=== PATIENT | female | born 1935 | race Caucasian/White ===

== ENCOUNTER 2016-08-03 | Outpatient (CLI) | END 2016-08-03 14:40 | disposition critical access hospital (66) | CPT/HCPCS: A0425; A0429 ==

== ENCOUNTER 2016-08-03 14:52 | Emergency (ER) | payer MEDICARE ==
[2016-08-03] MEDS ORDERED: SODIUM CHLORIDE 0.9% 1,000 ML IV ONE (15:30)
[2016-08-03] MEDS ORDERED: DEXAMETHASONE 10 MG/ML VIAL IVP STA (15:30)
[2016-08-03] MEDS ORDERED: ACETAMINOPHEN 325 MG TABLET PO STA (15:36)
[2016-08-03] MEDS ORDERED: DEXAMETHASONE 10 MG/ML VIAL ONE (15:37)
[2016-08-03] MEDS ORDERED: ACETAMINOPHEN 325 MG TABLET PO ONE (15:42)
[2016-08-03] MEDS ORDERED: cefTRIAXone 1 GM in SODIUM CHLORIDE 0.9% MINIBAG 100 ML IV STA (16:08)
[2016-08-03] MEDS ORDERED: cefTRIAXone 1 GM VIAL ONE (16:22)
== END 2016-08-03 17:48 | disposition home or self-care (01) ==
DX: E86.0 Dehydration (principal); J10.00 Influenza due to other identified influenza virus with unspecified type of pneumonia; H66.002 Acute suppurative otitis media without spontaneous rupture of ear drum, left ear; I48.91 Unspecified atrial fibrillation; K21.9 Gastro-esophageal reflux disease without esophagitis; M19.90 Unspecified osteoarthritis, unspecified site; Z87.891 Personal history of nicotine dependence
CPT/HCPCS: 36415; 71020; 80053; 83690; 85025; 87275; 87276; 96361; 96374; 99284; A9270

== ENCOUNTER 2016-08-11 11:00 | Outpatient (CLI) | payer MEDICARE | END 2016-08-11 11:01 | disposition home or self-care (01) | DX: R19.7 Diarrhea, unspecified (principal) ==

== ENCOUNTER 2016-11-04 08:00 | Outpatient (CLI) | payer MEDICARE | END 2016-11-04 23:59 | DX: M79.672 Pain in left foot (principal); Z79.899 Other long term (current) drug therapy ==

== ENCOUNTER 2016-12-23 10:56 | Outpatient (CLI) | payer MEDICARE ==
[2016-12-23 13:50] LABS: BASOPHILS % (AUTO) 0.7 %; EOSINOPHILS # (AUTO) 0.3 10^3/uL (0.0-0.7); EOSINOPHILS % (AUTO) 5.3 %; HCT - HEMATOCRIT 34.5 % (37.0-47.0); HGB - HEMOGLOBIN 11.7 g/dL (12.0-16.0); LYMPHOCYTES # (AUTO) 1.5 10^3/uL (1.5-3.5); LYMPHOCYTES % (AUTO) 29.8 %; MEAN CORPUSCULAR HEMOGLOBIN 31.3 pg (27.0-31.0); MEAN CORPUSCULAR HGB CONC 33.9 g/dL (32.0-36.0); MEAN CORPUSCULAR VOLUME 92.5 fL (81.0-99.0); MEAN PLATELET VOLUME 8.2 fL (7.9-10.8); MONOCYTES # (AUTO) 0.6 10^3/uL (0.0-1.0); MONOCYTES % (AUTO) 11.8 %; NEUTROPHILS # (AUTO) 2.7 10^3/uL (1.5-6.6); NEUTROPHILS % (AUTO) 52.4 %; RED BLOOD COUNT 3.73 10^6/uL (4.20-5.40); RED CELL DISTRIBUTION WIDTH 13.7 % (12.0-15.0); UNCORRECTED WHITE BLOOD COUNT 5.2 x10^3/uL; WHITE BLOOD COUNT 5.2 x10^3/uL (4.8-10.8)
[2016-12-23 14:19] LABS: ALBUMIN/GLOBULIN RATIO 1.2 (1.0-2.2); BILIRUBIN,TOTAL 0.4 mg/dL (0.2-1.0); BUN - BLOOD UREA NITROGEN 23 mg/dL (6-20); CALCIUM 9.2 mg/dL (8.5-10.3); CARBON DIOXIDE - CO2 31 mmol/L (21-32); CHLORIDE 98 mmol/L (101-111); CHOL/HDL RATIO 2.5 (<4.4); CHOLESTEROL 194 mg/dL; CREATININE 0.9 mg/dL (0.4-1.0); GFR - MDRD 60 (>89); GLUCOSE 100 mg/dL (70-100); HDL CHOLESTEROL 79 mg/dL; LDL/HDL RATIO 1.3 (<4.4); POTASSIUM 4.3 mmol/L (3.5-5.0); SODIUM 136 mmol/L (135-145); TOTAL PROTEIN 7.6 g/dL (6.7-8.2); TRIGLYCERIDES 78 mg/dL; VLDL CHOLESTEROL 16 mg/dL
== END 2016-12-23 23:59 | disposition home or self-care (01) ==
LOC: LAB.WCP 10:56
PROVIDERS: ATTEND Family Medicine
DX: I48.0 Paroxysmal atrial fibrillation (principal); I42.9 Cardiomyopathy, unspecified; D50.9 Iron deficiency anemia, unspecified
CPT/HCPCS: 36415; 80053; 80061; 83880; 85025

== ENCOUNTER 2017-11-07 15:36 | Emergency (ER) | payer MEDICARE ==
--- NOTE | 2017-11-07 15:48 | ED Physician Documentation ---
PD HPI CHEST PAIN - Stated complaint Stated Complaint: AFIB/ IRREGULAR HR/ SOA - Chief complaint Chief Complaint: Cardiac - History obtained from History obtained from: Patient - History of Present Illness Timing - onset: Today, Yesterday (noted some feeling of irregular heart beat at times yesterday, then more often today. Concerned about atrial fib as it felt irregular with stethoscope.) Timing - onset during: Rest. No: Light activity Timing - duration: Minutes Timing - details: Gradual onset. No: Still present Quality: Tightness (in shoulder and arm early today, not currently.) Location: Right shoulder/arm Improved by: Rest (just seemed to fade away without specific intervention) Review of Systems Constitutional: denies: Fever Nose: denies: Rhinorrhea / runny nose, Congestion Throat: denies: Sore throat Cardiac: reports: Chest pain / pressure, Palpitations (feeling of heart irregular and having surges/palpitations often today.) Respiratory: denies: Dyspnea, Cough, Wheezing GI: denies: Abdominal Pain, Nausea, Vomiting, Diarrhea : denies: Dysuria, Frequency Neurologic: denies: Focal weakness, Numbness, Near syncope, Syncope, Altered mental status Psychiatric: reports: Anxiety. 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, Hysterectomy - Present Medications Home Medications: Ambulatory Orders Medication Instructions Recorded Confirmed Carvedilol Phosphate [Coreg Cr] 12.5 mg PO DAILY 12/10/12 12/10/12 Lorazepam 0.5 gm MC PRN 12/10/12 12/10/12 Losartan Potassium [Cozaar] 100 mg PO 12/10/12 12/10/12 Omeprazole [PriLOSEC] 20 mg PO DAILY 12/10/12 12/10/12 Acetaminophen [Tylenol] 08/03/16 08/03/16 Azithromycin [Zithromax] 250 mg PO DAILY #6 tablet 08/03/16 Benzonatate [Tessalon] 100 - 200 mg PO TID PRN #20 capsule 08/03/16 Benzonatate [Tessalon] 100 mg PO .FREQ PRN 08/03/16 08/03/16 Carvedilol [Coreg] 1 tab PO .FREQ 08/03/16 08/03/16 Citalopram [CeleXA] 10 mg PO .FREQ 08/03/16 08/03/16 Fluconazole 0 mg PO .FREQ 08/03/16 08/03/16 Furosemide [Lasix] 20 mg PO .FREQ 08/03/16 08/03/16 Nitroglycerin 0 g PO .FREQ 08/03/16 08/03/16 Omeprazole [PriLOSEC] 1 tab PO DAILY 08/03/16 08/03/16 Oseltamivir [Tamiflu] 75 mg PO BID #10 capsule 08/03/16 Rivaroxaban [Xarelto] 1 tab PO .FREQ 08/03/16 08/03/16 Spironolactone 1 tab PO .FREQ 08/03/16 08/03/16 traMADol [Ultram] 150 mg PO .FREQ 08/03/16 08/03/16 Potassium Chloride 10 meq PO DAILY #20 tablet.er 11/07/17 - Allergies Allergies/Adverse Reactions: Allergies Allergy/AdvReac Type Severity Reaction Status Date / Time Penicillins Allergy Unknown Rash Verified 08/03/16 14:59 lisinopril Allergy Respiratory Verified 08/03/16 14:59 oxycodone [Oxycodone] Allergy Respiratory Verified 08/03/16 14:59 - Social History Does the pt smoke?: No Smoking Status: Never smoker Does the pt drink ETOH?: Yes Does the pt have substance abuse?: No PD ED PE NORMAL - Vitals Vital signs reviewed: Yes - General General: Alert and oriented X 3, No acute distress, Well developed/nourished - HEENT HEENT: Moist mucous membranes, Pharynx benign - Neck Neck: Supple, no meningeal sign, No adenopathy - Cardiac Cardiac: RRR (occasional skips and pauses. ), No murmur - Respiratory Respiratory: Clear bilaterally - Abdomen Abdomen: Normal bowel sounds, Soft, Non tender, Non distended - Back Back: No CVA TTP - Derm Derm: Normal color, Warm and dry - Extremities Extremities: No tenderness to palpate, Normal ROM s pain, No edema, No calf tenderness / cord - Neuro Neuro: Alert and oriented X 3, No motor deficit, Normal speech Eye Opening: Spontaneous Motor: Obeys Commands Verbal: Oriented GCS Score: 15 Results - Vitals Vitals: Oxygen O2 Source Room air - EKG (time done) 15:43 Rate: Rate (enter#) (71) Rhythm: NSR [place]: Normal Intervals: LBBB Ischemia: Normal ST segments. No: ST elevation c/w ischemia, ST depression Computer interpretation: Agree with computer - Labs Labs: Laboratory Tests 11/07/17 11/07/17 11/07/17 15:54 15:54 15:54 WBC 8.5 RBC 4.01 L Hgb 12.4 Hct 37.7 MCV 94.1 MCH 31.0 MCHC 32.9 RDW 14.0 Plt Count 371 MPV 7.5 L Neut # 6.0 Lymph # 1.5 Baca # 0.8 Eos # 0.1 Baso # 0.1 Absolute Nucleated RBC 0.00 Nucleated RBC % 0.0 Sodium 136 Potassium 3.4 L Chloride 97 L Carbon Dioxide 27 Anion Gap 12.0 BUN 13 Creatinine 0.7 Estimated GFR (MDRD) 81 L Glucose 93 Calcium 9.5 Magnesium Total Bilirubin 0.4 AST 18 ALT 13 Alkaline Phosphatase 75 Troponin I < 0.04 Total Protein 8.1 Albumin 4.3 Globulin 3.8 Albumin/Globulin Ratio 1.1 Lipase 22 TSH 11/07/17 11/07/17 15:54 15:54 WBC RBC Hgb Hct MCV MCH MCHC RDW Plt Count MPV Neut # Lymph # Baca # Eos # Baso # Absolute Nucleated RBC Nucleated RBC % Sodium Potassium Chloride Carbon Dioxide Anion Gap BUN Creatinine Estimated GFR (MDRD) Glucose Calcium Magnesium 1.8 Total Bilirubin AST ALT Alkaline Phosphatase Troponin I Total Protein Albumin Globulin Albumin/Globulin Ratio Lipase TSH 0.65 PD MEDICAL DECISION MAKING - ED course Complexity details: considered differential (having PACs on monitor. Not in atrial fib. Potassium somewhat low. No other acute process noted. ), d/w patient Departure - Departure Disposition: 01 Home, Self Care Clinical Impression: Heart palpitations, PAC (premature atrial contraction), Hypokalemia Clinical Impression: (Ruled Out): Atrial fibrillation Condition: Stable Record reviewed to determine appropriate education?: Yes Instructions: ED Palpitations Follow-Up: Alexander Arreola DO [Primary Care Provider] - Prescriptions: Potassium Chloride 10 meq PO DAILY #20 tablet.er Comments: Stay well-hydrated. Continue usual medications. Your potassium was just slightly low so add a potassium supplement or dietary potassium for the next week or two. I think your palpitations today related to being slightly under hydrated and not having had your medication dose in preparation for the scope. The low potassium also plays in there as well. You were not in atrial fibrillation but just had extra beats called PACs. Discharge Date/Time: 11/07/17 17:40
[2017-11-07 16:04] LABS: BASOPHILS # (AUTO) 0.1 10^3/uL (0.0-0.1); BASOPHILS % (AUTO) 1.2 %; EOSINOPHILS # (AUTO) 0.1 10^3/uL (0.0-0.7); EOSINOPHILS % (AUTO) 0.6 %; HGB - HEMOGLOBIN 12.4 g/dL (12.0-16.0); LYMPHOCYTES # (AUTO) 1.5 10^3/uL (1.5-3.5); LYMPHOCYTES % (AUTO) 17.8 %; MEAN CORPUSCULAR HGB CONC 32.9 g/dL (32.0-36.0); MEAN CORPUSCULAR VOLUME 94.1 fL (81.0-99.0); MEAN PLATELET VOLUME 7.5 fL (7.9-10.8); MONOCYTES # (AUTO) 0.8 10^3/uL (0.0-1.0); MONOCYTES % (AUTO) 9.6 %; NEUTROPHILS % (AUTO) 70.8 %; PLT - PLATELET COUNT 371 10^3/uL (130-450); RED BLOOD COUNT 4.01 10^6/uL (4.20-5.40); WHITE BLOOD COUNT 8.5 x10^3/uL (4.8-10.8)
[2017-11-07] MEDS ORDERED: METOPROLOL 5 MG/5 ML VIAL IVP STA (16:04)
[2017-11-07] MEDS ORDERED: SODIUM CHLORIDE 0.9% 1,000 ML IV ONE (16:04)
[2017-11-07 16:15] LABS: ALBUMIN 4.3 g/dL (3.2-5.5); ALBUMIN/GLOBULIN RATIO 1.1 (1.0-2.2); BILIRUBIN,TOTAL 0.4 mg/dL (0.2-1.0); CALCIUM 9.5 mg/dL (8.5-10.3); CREATININE 0.7 mg/dL (0.4-1.0); TOTAL PROTEIN 8.1 g/dL (6.7-8.2)
[2017-11-07] MEDS ORDERED: POTASSIUM BICARB 25 MEQ TABLET PO STA (16:32)
[2017-11-07 17:24] VITALS: BP 140/75
== END 2017-11-07 17:40 | disposition home or self-care (01) ==
LOC: ED 15:36
DX: R00.2 Palpitations (principal); I49.1 Atrial premature depolarization; E87.6 Hypokalemia; I44.7 Left bundle-branch block, unspecified
CPT/HCPCS: 36415; 80053; 83690; 83735; 84443; 84484; 85025; 93005; 96361; 96374; 99283; 99284; A9270

== ENCOUNTER 2017-11-22 08:00 | Outpatient (CLI) | payer MEDICARE ==
[2017-11-22 19:18] LABS: CALCIUM 9.6 mg/dL (8.5-10.3); CREATININE 0.9 mg/dL (0.4-1.0)
== END 2017-11-22 08:01 | disposition home or self-care (01) ==
LOC: LAB.WCP 08:00
PROVIDERS: ATTEND Family Medicine
DX: E87.6 Hypokalemia (principal)
CPT/HCPCS: 36415; 80048

== ENCOUNTER 2018-08-02 13:53 | Outpatient (CLI) | payer MEDICARE ==
--- NOTE | 2018-08-03 09:42 | DEXA Report ---
Reason: POSTMENOPAUSAL STATUS Procedure Date: 08/02/2018 Accession Number: [id number] / [id number] Procedure: DEX - Dexa Spine and/or Hip CPT Code: FULL RESULT: EXAM: Dexa Spine and/or Hip DATE: 08/02/2018 4:19 PM CLINICAL HISTORY: POSTMENOPAUSAL STATUS TECHNIQUE: Dual energy x-ray absorptiometry (DXA) was performed on a [employer] System. Regions measured are the AP Spine, femoral neck, and if needed forearm. COMPARISON: None. In accordance with the International Society for Clinical Densitometry (ISCD) guidelines, data from previous exams may be reanalyzed using current recommendations and techniques. This is done to allow a more accurate basis for comparison with the current study. FINDINGS: The data for the lumbar spine is as follows: BMD (g/cm/cm) T-SCORE Z-SCORE REGION L1 0.983 -1.2 0.6 L2 1.205 0.0 1.8 L3 1.134 -0.5 1.2 L4 1.216 0.1 1.9 TOTAL 1.132 -0.4 1.4 NOTE: All evaluable vertebrae are used for classification The data for the hip is as follows: BMD (g/cm/cm) T-SCORE Z-SCORE REGION Neck 0.819 -1.6 0.6 TOTAL 0.862 -1.2 0.9 NOTE: The femoral neck or total proximal femur, whichever is lowest, is used for classification. IMPRESSION: THE WHO CLASSIFICATION BASED ON THE INTERNATIONAL REFERENCE STANDARD IS OSTEOPENIA. THE FRACTURE RISK IS INCREASED. RECOMMENDATION: Patients with diagnosis of osteoporosis or osteopenia should have regular bone mineral density assessment. For those eligible for Medicare, routine testing is allowed once every 2 years. Testing frequency can be increased for patients who have rapidly progressing disease or for those who are receiving medical therapy to restore bone mass. COMMENT: World Health Organization (WHO) definitions for osteoporosis and osteopenia: NORMAL BMD: T-score at -1.0 or higher, fracture risk is low OSTEOPENIA BMD: T-score between -1.0 and -2.5, fracture risk is increased. OSTEOPOROSIS BMD: T-score at -2.5 or lower, fracture risk is high. National Osteoporosis Foundation recommends: 1. Obtain adequate dietary calcium (at least 1200 mg per day) and vitamin D (400-800 international units per day). 2. Participate, as appropriate, in regular weightbearing and muscle-strengthening exercise. 3. Avoid tobacco use and reduce alcohol and caffeine intake. 4. For more detailed information see the website at www.NOF.org.
== END 2018-08-02 13:54 | disposition home or self-care (01) ==
LOC: DI 13:53
PROVIDERS: ATTEND Family Medicine
DX: M85.88 Other specified disorders of bone density and structure, other site (principal)
CPT/HCPCS: 77080

== ENCOUNTER 2019-03-28 08:00 | Outpatient (CLI) | payer MEDICARE, OTHER ==
[2019-03-28 19:33] LABS: BASOPHILS # (AUTO) 0.1 10^3/uL (0.0-0.1); BASOPHILS % (AUTO) 0.7 %; EOSINOPHILS # (AUTO) 0.2 10^3/uL (0.0-0.7); EOSINOPHILS % (AUTO) 2.4 %; LYMPHOCYTES # (AUTO) 1.7 10^3/uL (1.5-3.5); LYMPHOCYTES % (AUTO) 24.3 %; MEAN CORPUSCULAR HEMOGLOBIN 32.1 pg (27.0-31.0); MEAN CORPUSCULAR HGB CONC 31.3 g/dL (32.0-36.0); MEAN CORPUSCULAR VOLUME 102.3 fL (81.0-99.0); MEAN PLATELET VOLUME 9.8 fL (7.9-10.8); MONOCYTES # (AUTO) 0.7 10^3/uL (0.0-1.0); MONOCYTES % (AUTO) 9.9 %; NEUTROPHILS # (AUTO) 4.4 10^3/uL (1.5-6.6); NEUTROPHILS % (AUTO) 62.6 %; PLT - PLATELET COUNT 305 10^3/uL (130-450); RED BLOOD COUNT 3.43 10^6/uL (4.20-5.40); RED CELL DISTRIBUTION WIDTH 13.3 % (12.0-15.0)
[2019-03-28 19:41] LABS: ALBUMIN/GLOBULIN RATIO 1.2 (1.0-2.2); ALKALINE PHOSPHATASE 73 IU/L (42-121); ALT ALANINE AMINOTRANSFERASE 15 IU/L (10-60); AST ASPARTATE AMINOTRANSFERASE 22 IU/L (10-42); BILIRUBIN,TOTAL 0.8 mg/dL (0.2-1.0); BUN - BLOOD UREA NITROGEN 23 mg/dL (6-20); CARBON DIOXIDE - CO2 30 mmol/L (21-32); CHLORIDE 98 mmol/L (101-111); CHOL/HDL RATIO 1.9 (<4.4); CHOLESTEROL 166 mg/dL; GFR - MDRD 53 (>89); GLUCOSE 78 mg/dL (70-100); HDL CHOLESTEROL 89 mg/dL; LDL CHOLESTEROL,CALCULATED 68 mg/dL; LDL/HDL RATIO 0.8 (<4.4); SODIUM 138 mmol/L (135-145); TOTAL PROTEIN 7.4 g/dL (6.7-8.2); VLDL CHOLESTEROL 9 mg/dL
== END 2019-03-28 23:59 | disposition home or self-care (01) ==
LOC: LAB.WCP 08:00
PROVIDERS: ATTEND Family Medicine
DX: I10 Essential (primary) hypertension (principal); M19.012 Primary osteoarthritis, left shoulder
CPT/HCPCS: 36415; 80053; 80061; 83721; 84443; 85025

== ENCOUNTER 2019-03-28 14:13 | Outpatient (CLI) | payer MEDICARE, OTHER ==
--- NOTE | 2019-03-29 08:13 | XRAY Report ---
Reason: LEFT SHOULDER PAIN Procedure Date: 03/28/2019 Accession Number: [id number] / [id number] Procedure: WCP - Shoulder 2 View LT CPT Code: FULL RESULT: EXAM: LEFT SHOULDER RADIOGRAPHY EXAM DATE: 03/28/2019 02:13 PM. CLINICAL HISTORY: Left shoulder pain. COMPARISON: None. TECHNIQUE: 3 views. FINDINGS: Bones: Generalized bony demineralization.. No fracture or bone lesion. Osteophytic spurring of the lateral aspect of the humeral head. Joints: Moderate narrowing of the subacromial and glenohumeral articulations. AC articulation space appears within normal limits. Soft tissues: Imaged portion of the left upper lung appears clear. Previous upper thoracic spinous fixation. IMPRESSION: Moderate degenerative changes at the left shoulder. RADIA
== END 2019-03-28 23:59 | disposition home or self-care (01) ==
LOC: DI.WCP 14:13
PROVIDERS: ATTEND Family Medicine
DX: M19.012 Primary osteoarthritis, left shoulder (principal)

== ENCOUNTER 2019-06-25 10:06 | Emergency (ER) | payer MEDICARE, OTHER ==
--- NOTE | 2019-06-25 11:08 | XRAY Report ---
Reason: L knee pain Procedure Date: 06/25/2019 Accession Number: [id number] / [id number] Procedure: XR - Knee 4 View LT CPT Code: Final Report FULL RESULT: EXAM: LEFT KNEE RADIOGRAPHY EXAM DATE: 06/25/2019 10:48 AM. CLINICAL HISTORY: Acute left knee pain. COMPARISON: None. TECHNIQUE: 4 views. FINDINGS: Bones: Normal bone mineralization. No fractures or bone lesions. Mild spurring of the medial tibial spine. Joints: Normal. No effusion. No subluxations. Soft Tissues: Lateral meniscal calcification. IMPRESSION: 1. Mild spurring of the medial tibial spine. 2. Lateral meniscal calcification. 3. The remainder of the left knee radiography is unremarkable. RADIA
--- NOTE | 2019-06-25 12:35 | ED Physician Documentation ---
History of Present Illness - Stated complaint Stated Complaint: KNEE PX - Chief complaint Chief Complaint: Ext Problem - History obtained from History obtained from: Patient, Family - History of Present Illness Timing: How many days ago (2) Pain level max: 5 Pain level now: 3 - Additonal information Additional information: 83-year-old female presents to the emergency department left calf pain for the past 2 to 3 days. She states she has been standing on her tippy toes quite a bit lately, she states that her microwave oven is placed too high and she stands on her tiptoes to see inside. She is on Xarelto for atrial fibrillation. Pain is worse with walking, better with rest. Does not recall any specific injury. 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, Hysterectomy - Present Medications Home Medications: Ambulatory Orders Medication Instructions Recorded Confirmed Carvedilol Phosphate [Coreg Cr] 12.5 mg PO DAILY 12/10/12 12/10/12 Lorazepam 0.5 gm MC PRN 12/10/12 12/10/12 Losartan Potassium [Cozaar] 100 mg PO 12/10/12 12/10/12 Omeprazole [PriLOSEC] 20 mg PO DAILY 12/10/12 12/10/12 Acetaminophen [Tylenol] 08/03/16 08/03/16 Azithromycin [Zithromax] 250 mg PO DAILY #6 tablet 08/03/16 Benzonatate [Tessalon] 100 - 200 mg PO TID PRN #20 capsule 08/03/16 Benzonatate [Tessalon] 100 mg PO .FREQ PRN 08/03/16 08/03/16 Carvedilol [Coreg] 1 tab PO .FREQ 08/03/16 08/03/16 Citalopram [CeleXA] 10 mg PO .FREQ 08/03/16 08/03/16 Fluconazole 0 mg PO .FREQ 08/03/16 08/03/16 Furosemide [Lasix] 20 mg PO .FREQ 08/03/16 08/03/16 Nitroglycerin 0 g PO .FREQ 08/03/16 08/03/16 Omeprazole [PriLOSEC] 1 tab PO DAILY 08/03/16 08/03/16 Oseltamivir [Tamiflu] 75 mg PO BID #10 capsule 08/03/16 Rivaroxaban [Xarelto] 1 tab PO .FREQ 08/03/16 08/03/16 Spironolactone 1 tab PO .FREQ 08/03/16 08/03/16 traMADol [Ultram] 150 mg PO .FREQ 08/03/16 08/03/16 Potassium Chloride 10 meq PO DAILY #20 tablet.er 11/07/17 - Allergies Allergies/Adverse Reactions: Allergies Allergy/AdvReac Type Severity Reaction Status Date / Time Penicillins Allergy Unknown Rash Verified 08/03/16 14:59 lisinopril Allergy Respiratory Verified 08/03/16 14:59 oxycodone [Oxycodone] Allergy Respiratory Verified 08/03/16 14:59 - Social History Does the pt smoke?: No Smoking Status: Never smoker Does the pt drink ETOH?: Yes Does the pt have substance abuse?: No PD ED PE NORMAL - Vitals Vital signs reviewed: Yes - General General: Alert and oriented X 3, No acute distress - HEENT HEENT: Moist mucous membranes - Derm Derm: Warm and dry - Extremities Extremities: Other (Left calf is mildly swollen. Tenderness at the superior posterior aspect of the calf. Neurovascular intact distally. No overlying skin changes. Normal examination of the knee and ligaments.) - Neuro Neuro: Alert and oriented X 3 Results - Vitals Vitals: Oxygen O2 Source Room air - Rads (name of study) Left knee x-ray Radiology: Prelim report reviewed, EMP read contemporaneously, See rad report (Mild spurring of the medial tibial spine. 2. Lateral meniscal calcification. 3. The remainder of the left knee radiography is unremarkable. ) Left lower extremity duplex ultrasound Radiology: Prelim report reviewed, EMP read contemporaneously, See rad report (No DVT seen.) PD MEDICAL DECISION MAKING - ED course Complexity details: reviewed results, re-evaluated patient, considered differential, d/w patient ED course: 83-year-old female presents to the emergency department with left lower extremity swelling. Unclear etiology. Possible related to arthritis? No evidence of DVT. She is anticoagulated. No cellulitis. No evidence of Vu's cyst. We will have her follow-up with her doctor for further care. Patient counseled regarding signs and symptoms for which I believe and urgent re- evaluation would be necessary. Patient with good understanding of and agreement to plan and is comfortable going home at this time This document was made in part using voice recognition software. While efforts are made to proofread this document, sound alike and grammatical errors may occur. Departure - Departure Disposition: Home, Self Care Clinical Impression: Left leg pain Condition: Good Instructions: ED Strain Muscle Ext Follow-Up: Alexander Arreola DO [Primary Care Provider] - Within 1 week Comments: I would recommend using a walker at home to help take weight off of the leg while you heal. You can use Tylenol as needed for pain. Your ultrasound does not show any blood clots in the leg today Discharge Date/Time: 06/25/19 12:44
--- NOTE | 2019-06-25 12:38 | Ultrasound Report ---
Reason: LLE swelling, pain Procedure Date: 06/25/2019 Accession Number: [id number] / [id number] Procedure: US - Duplex Ext Veins Left CPT Code: Final Report FULL RESULT: EXAM: LEFT LOWER EXTREMITY VENOUS ULTRASOUND EXAM DATE: 06/25/2019 12:23 PM. CLINICAL HISTORY: Left lower extremity swelling, pain. COMPARISON: None. TECHNIQUE: Real-time sonographic vascular imaging was performed by the stave log cut off saw operator through the lower extremity utilizing both color-flow and Doppler spectral analysis. Multiple hvac sales representative static images were saved for review. FINDINGS: Common Femoral Vein (CFV): Normal. CFV-GSV Junction: Normal. Profunda Femoral Vein (PFV): Normal. Femoral Vein (FV) Prox: Normal. Femoral Vein (FV) Mid: Normal. Femoral Vein (FV) Dist: Normal. Popliteal Vein: Normal. Posterior Tibial Veins: Not well seen. Peroneal Veins: Not well seen. Other: Prominent superficial soft tissue edema is noted in the calf. IMPRESSION: No DVT seen. Limited visualization of calf veins due to edema. RADIA
[2019-06-25 12:44] VITALS: BP 102/55
== END 2019-06-25 12:44 | disposition home or self-care (01) ==
LOC: ED 10:06
DX: M79.662 Pain in left lower leg (principal); R60.0 Localized edema; M76.892 Other specified enthesopathies of left lower limb, excluding foot; M25.862 Other specified joint disorders, left knee; I48.91 Unspecified atrial fibrillation; Z79.01 Long term (current) use of anticoagulants
CPT/HCPCS: 99282; 99283

== ENCOUNTER 2019-10-11 08:55 | Outpatient (CLI) | payer MEDICARE, OTHER ==
[2019-10-11 12:22] LABS: BASOPHILS # (AUTO) 0.1 10^3/uL (0.0-0.1); BASOPHILS % (AUTO) 0.9 %; EOSINOPHILS # (AUTO) 0.4 10^3/uL (0.0-0.7); EOSINOPHILS % (AUTO) 6.7 %; HGB - HEMOGLOBIN 10.7 g/dL (12.0-16.0); LYMPHOCYTES # (AUTO) 1.9 10^3/uL (1.5-3.5); LYMPHOCYTES % (AUTO) 34.1 %; MEAN CORPUSCULAR HEMOGLOBIN 31.9 pg (27.0-31.0); MEAN CORPUSCULAR HGB CONC 31.3 g/dL (32.0-36.0); MEAN CORPUSCULAR VOLUME 102.1 fL (81.0-99.0); MEAN PLATELET VOLUME 9.9 fL (7.9-10.8); MONOCYTES # (AUTO) 0.7 10^3/uL (0.0-1.0); MONOCYTES % (AUTO) 11.7 %; NEUTROPHILS # (AUTO) 2.6 10^3/uL (1.5-6.6); NEUTROPHILS % (AUTO) 46.2 %; PLT - PLATELET COUNT 323 10^3/uL (130-450); RED BLOOD COUNT 3.35 10^6/uL (4.20-5.40); WHITE BLOOD COUNT 5.7 x10^3/uL (4.8-10.8)
[2019-10-11 13:04] LABS: % IRON SATURATION 19 % (20-50); ALBUMIN/GLOBULIN RATIO 1.3 (1.0-2.2); ALKALINE PHOSPHATASE 53 IU/L (42-121); ALT ALANINE AMINOTRANSFERASE 11 IU/L (10-60); AST ASPARTATE AMINOTRANSFERASE 15 IU/L (10-42); BILIRUBIN,TOTAL 0.5 mg/dL (0.2-1.0); BUN - BLOOD UREA NITROGEN 31 mg/dL (6-20); CALCIUM 8.8 mg/dL (8.5-10.3); CARBON DIOXIDE - CO2 29 mmol/L (21-32); CHLORIDE 97 mmol/L (101-111); CHOL/HDL RATIO 2.7 (<4.4); CHOLESTEROL 168 mg/dL; CREATININE 1.4 mg/dL (0.4-1.0); GFR - MDRD 36 (>89); GLUCOSE 82 mg/dL (70-100); HDL CHOLESTEROL 62 mg/dL; IRON 67 ug/dL (28-170); LDL CHOLESTEROL,CALCULATED 97 mg/dL; LDL/HDL RATIO 1.6 (<4.4); SODIUM 136 mmol/L (135-145); TOTAL IRON BINDING CAPACITY 360 ug/dL (250-450); TOTAL PROTEIN 7.1 g/dL (6.7-8.2); TRANSFERRIN 257 mg/dL (192-382); VLDL CHOLESTEROL 9 mg/dL
[2019-10-11 13:10] LABS: FERRITIN 27.4 ng/mL (11.0-306.8)
[2019-10-11 13:16] LABS: HB2 TOTAL 11.1 g/dL; HEMOGLOBIN A1C 0.4 g/dL; HEMOGLOBIN A1C % 5.4 % (4.6-6.2)
== END 2019-10-11 23:59 | disposition home or self-care (01) ==
LOC: LAB.WCP 08:55
PROVIDERS: ATTEND Family Medicine
DX: I10 Essential (primary) hypertension (principal); D50.9 Iron deficiency anemia, unspecified; E11.9 Type 2 diabetes mellitus without complications; Z79.899 Other long term (current) drug therapy
CPT/HCPCS: 36415; 80053; 80061; 82728; 83036; 83540; 83721; 84443; 84466; 85025

== ENCOUNTER 2019-11-22 10:38 | Outpatient (CLI) | payer MEDICARE, OTHER ==
--- NOTE | 2019-11-23 14:48 | XRAY Report ---
Reason: LEFT CERVICAL RADICULOPATHY Procedure Date: 11/22/2019 Accession Number: [id number] / [id number] Procedure: WCP - Cervical Spine 2 View CPT Code: Final Report FULL RESULT: EXAM: CERVICAL SPINE RADIOGRAPHY EXAM DATE: 11/22/2019 10:38 AM. CLINICAL HISTORY: Left cervical radiculopathy. Chronic neck pain. No known injury. COMPARISONS: XR CERVICAL SPINE COMPLETE 08/01/2012 4:56 PM. TECHNIQUE: 3 views. FINDINGS: Alignment: Accentuated cervical lordosis is unchanged compared to prior. No spondylolisthesis or scoliosis. Bones: The cervical vertebral bodies and posterior elements are well visualized from the skull base through C7-T1. No fractures or bone lesions. There is posterior thoracic spine fusion hardware at the T1, T3, and T4 levels, as seen on the prior exam. Disks: Mild to moderate multilevel degenerative disk changes throughout the cervical spine appear similar to the prior exam. Facets: There are mild multilevel degenerative facet changes. Soft Tissues: There is atherosclerotic calcification of the carotid bulbs, as seen on prior cervical spine radiographs. No prevertebral soft tissue swelling. The visualized lung apices are clear. IMPRESSION: 1. Mild to moderate degenerative changes of the cervical spine, similar to prior. 2. Exaggerated cervical lordosis, unchanged. No spondylolisthesis or scoliosis. 3. Posterior fusion hardware of the upper thoracic spine, as seen on the prior exam. 4. No displaced fracture or other acute osseous abnormality. RADIA
== END 2019-11-22 23:59 | disposition home or self-care (01) ==
LOC: DI.WCP 10:38
PROVIDERS: ATTEND Family Medicine
DX: M50.31 Other cervical disc degeneration, high cervical region (principal); M47.892 Other spondylosis, cervical region; Z98.1 Arthrodesis status
CPT/HCPCS: 72040

== ENCOUNTER 2019-12-04 08:13 | Outpatient (CLI) | payer MEDICARE, OTHER ==
--- NOTE | 2019-12-04 10:56 | MRI Report ---
Reason: CHRONIC TSP PAIN Procedure Date: 12/04/2019 Accession Number: [id number] / [id number] Procedure: MRI - Thoracic Spine W/O CPT Code: Final Report FULL RESULT: EXAM: MRI THORACIC SPINE WITHOUT CONTRAST EXAM DATE: 12/04/2019 09:55 AM. CLINICAL HISTORY: Worsening pain/numbness down the left arm to the wrist for the past year. Status post fusion 20 years ago. COMPARISONS: MRI CERVICAL SPINE W/O 12/04/2019 8:39 AM. XR CERVICAL SPINE 2 VIEW 11/22/2019 10:15 AM. XR CHEST 2 VIEW PA/LAT 08/03/2016 3:48 PM. TECHNIQUE: Multiplanar, multisequence T1-weighted and fluid-sensitive sequences of the thoracic spine from C7 to L1 without contrast. Other: None. FINDINGS: Postoperative: Postoperative change is noted from T1 through T4. Bilateral laminectomy is seen. Posterolateral fusion with transpedicular screws is noted. This is unchanged. Spinal Canal: No signal abnormality in the visualized spinal cord. The spinal canal is adequate. Alignment: There is accentuated kyphosis centered at T1-T2. Mild, 4 mm, retrolisthesis of T2 is seen in relation to T1. Bone Marrow: There is an old moderate compression fracture of the T2 superior endplate. Patchy osseous interbody fusion is noted at T1-T2. There likely is an old mild wedge compression fracture of the T9 vertebral body. Patchy diskogenic endplate irregularity and scattered Schmorl's node formation is seen throughout the thoracic spine. Patchy Modic type I and Modic type II endplate signal change is seen in the mid thoracic spine. No abnormal bone marrow replacement or edema is appreciated. Note is made of a 22 mm hemangioma in the right lateral T11 vertebral body. 9 mm hemangioma is seen in the right posterolateral inferior T8 vertebral body. Disk Levels/Facets: C7-T1: Unremarkable. T1-T2: Old T2 superior endplate compression fracture and patchy interbody fusion. Mild retrolisthesis of T2. This effaces the thecal sac. No stenosis. T2-T3: Unremarkable. T3-T4: Unremarkable. T4-T5: Unremarkable. T5-T6: Unremarkable. Loss of disk space height is seen. T6-T7: Unremarkable. Minimal right dorsolateral disk protrusion. T7-T8: Unremarkable. Minimal right dorsolateral disk bulge. T8-T9: Unremarkable. T9-T10: Unremarkable. T10-T11: Unremarkable. T11-T12: Unremarkable. Minimal dorsal disk bulge. T12-L1: Unremarkable. Mild lobular dorsal disk protrusion. Musculature: Normal. No edema or fatty atrophy. Other: The visualized lungs, mediastinum, and abdominal cavity are unremarkable. IMPRESSION: 1. Stable postoperative change from T1 through T4 posteriorly. Old compression fracture of T2 vertebral body with patchy osseous interbody fusion at T1-T2. Old mild retrolisthesis of T2 in relation to T1. 2. Accentuated kyphosis noted in the upper thoracic spine. Mild scattered thoracic spondylosis. No canal or foraminal stenosis. 3. Normal signal intensity is seen in the thoracic spinal cord. RADIA
--- NOTE | 2019-12-04 10:56 | MRI Report ---
Reason: LEFT CERVICAL RADICULOPATHY Procedure Date: 12/04/2019 Accession Number: [id number] / [id number] Procedure: MRI - Cervical Spine W/O CPT Code: Final Report FULL RESULT: EXAM: MRI CERVICAL SPINE WITHOUT CONTRAST EXAM DATE: 12/04/2019 08:39 AM. CLINICAL HISTORY: Left cervical radiculopathy. Worsening pain/numbness down the left arm to the wrist. Status post fusion 20 years ago. COMPARISONS: XR CERVICAL SPINE 2 VIEW 11/22/2019 10:15 AM. MRI THORACIC SPINE W/O 12/04/2019 9:33 AM. TECHNIQUE: Multiplanar, multisequence T1-weighted and fluid-sensitive sequences of the cervical spine without contrast. Other: None. FINDINGS: Neurologic Structures: The visualized posterior fossa structures are unremarkable. No signal abnormality in the visualized spinal cord. Alignment: Accentuated kyphosis is seen centered at T1-T2. There is consequent accentuated cervical lordosis centered at C4-C5. Within the cervical spine minimal, 1.5 mm, retrolisthesis is seen at C3-C4, C4-C5, and C7-T1. Bone Marrow: No acute fractures or bone lesions. No marrow edema. Postoperative change is seen dorsally in the upper thoracic spine. Old moderate wedge compression fracture of the T2 vertebral body is seen with partial osseous interbody fusion at T1-T2. Mild, 4 mm, retropulsion of T2 is seen in relation to T1. Posterolateral fusion with transpedicular screws is seen from T1-T4 bilaterally. Interspace Levels/Facets: C1-C2: Unremarkable. C2-C3: Moderate degenerative facet change is seen, greater on the left. No stenosis. C3-C4: Mild loss of disk space height. Minimal retrolisthesis. Effacement of the thecal sac. Mild canal stenosis. C4-C5: Mild loss of disk space height. Minimal retrolisthesis. Mild degenerative uncovertebral change is seen. Effacement of the thecal sac is noted. Mild canal stenosis. Mild left foraminal stenosis. C5-C6: Mild loss of disk space height. Minimal dorsal disk bulge. No stenosis. C6-C7: Unremarkable. C7-T1: Unremarkable. Minimal spondylolisthesis. Musculature: Normal. No edema or fatty atrophy. Other: The paravertebral and prevertebral soft tissues are normal. IMPRESSION: 1. No acute cervical spine abnormality present. Mild scattered cervical spondylosis. Accentuated upper thoracic kyphosis with consequent lower cervical lordosis. 2. C2-C3: Moderate degenerative facet change. 3. C3-C4: Mild degenerative disk change. Minimal retrolisthesis. Mild canal stenosis. 4. C4-C5: Mild degenerative disk and uncovertebral change. Minimal retrolisthesis. Mild canal stenosis. Left mild foraminal stenosis. 5. Old compression fracture of the T2 superior endplate with patchy osseous interbody fusion at T1-T2. Mild retrolisthesis of T2 in relation to T1. Postoperative change dorsally from T1 through T4. RADIA
== END 2019-12-04 08:14 | disposition home or self-care (01) ==
LOC: DI 08:13
PROVIDERS: ATTEND Family Medicine
DX: M43.12 Spondylolisthesis, cervical region (principal); M43.13 Spondylolisthesis, cervicothoracic region; M50.31 Other cervical disc degeneration, high cervical region; M47.812 Spondylosis without myelopathy or radiculopathy, cervical region; M48.02 Spinal stenosis, cervical region; M40.204 Unspecified kyphosis, thoracic region; M43.14 Spondylolisthesis, thoracic region; M51.44 Schmorl's nodes, thoracic region; D18.09 Hemangioma of other sites; M51.24 Other intervertebral disc displacement, thoracic region; M51.25 Other intervertebral disc displacement, thoracolumbar region; M47.814 Spondylosis without myelopathy or radiculopathy, thoracic region; Z98.1 Arthrodesis status
CPT/HCPCS: 72141; 72146

== ENCOUNTER 2020-02-04 14:48 | Outpatient (CLI) | payer MEDICARE, OTHER ==
--- NOTE | 2020-02-04 15:14 | XRAY Report ---
PROCEDURE: Shoulder 3 View LT INDICATIONS: LT SHOULDER PAIN TECHNIQUE: 3 views of the shoulder were acquired. COMPARISON: None. FINDINGS: Bones: Moderate to severe left glenohumeral joint osteoarthritic changes are seen. Moderate acromiocl avicular joint osteoarthritic changes also seen. No fractures or dislocations. No suspicious bony le sions. Visualized ribs appear intact. Soft tissues: No suspicious soft tissue calcifications. IMPRESSION: Moderate to severe glenohumeral joint osteoarthritis and moderate acromioclavicular joint osteoarthri tis. Reviewed by: El Hernández MD on 02/04/2020 3:13 PM PDT Approved by: El Hernández MD on 02/04/2020 3:13 PM PDT Station ID: [id number]
== END 2020-02-04 14:49 | disposition home or self-care (01) ==
LOC: DI 14:48
PROVIDERS: ATTEND Physician Assistant
DX: M19.012 Primary osteoarthritis, left shoulder (principal)

== ENCOUNTER 2020-04-07 10:08 | Outpatient (CLI) | payer MEDICARE, OTHER | END 2020-04-07 10:09 | disposition home or self-care (01) | LOC: DI 10:08 | PROVIDERS: ATTEND Family Medicine | DX: I51.7 Cardiomegaly (principal); I70.0 Atherosclerosis of aorta | CPT/HCPCS: 93306 ==

== ENCOUNTER 2020-06-19 13:18 | Outpatient (CLI) | payer MEDICARE, OTHER ==
--- NOTE | 2020-06-19 16:49 | CT Report ---
PROCEDURE: UPPER EXTREMITY WO - LT INDICATIONS: OSTEOARTHRITIS OF LT SHOULDER TECHNIQUE: Noncontrast 3 mm axial sections acquired of the left shoulder, with coronal and sagittal reformats. COMPARISON: None. FINDINGS: Image quality: Excellent. Bones: No fracture or focal osseous destruction. Severe glenohumeral joint degeneration with subchon dral sclerosis and spurring. There is [id number] appearance. Diffuse osteopenia. Severe AC joint de generation also noted. Incidentally noted os acromiale. Soft tissues: Shotty subcentimeter left axillary lymph nodes. Incidentally noted coronary artery ying cifications. There is a glenohumeral joint effusion. IMPRESSION: Severe left shoulder osteoarthritis. Additional chronic and incidental findings as above. Reviewed by: John Arriaga MD on 06/19/2020 4:47 PM PST Approved by: John Arriaga MD on 06/19/2020 4:47 PM PST Station ID: [id number]
== END 2020-06-19 13:19 | disposition home or self-care (01) ==
LOC: DI 13:18
PROVIDERS: ATTEND Orthopaedic Surgery
DX: M19.012 Primary osteoarthritis, left shoulder (principal)

== ENCOUNTER 2020-06-26 14:05 | Outpatient (CLI) | payer MEDICARE, OTHER | END 2020-06-26 14:06 | disposition home or self-care (01) | LOC: COV 14:05 | PROVIDERS: ATTEND Orthopaedic Surgery | DX: Z01.812 Encounter for preprocedural laboratory examination (principal); M19.012 Primary osteoarthritis, left shoulder; Z20.828 Contact with and (suspected) exposure to other viral communicable diseases ==

== ENCOUNTER 2020-07-01 06:16 | Inpatient (IN) | payer MEDICARE, OTHER ==
[2020-07-01] MEDS ORDERED: ACETAMINOPHEN 1,000 MG/100 ML 100 ML IV ONE (06:33)
[2020-07-01] MEDS ORDERED: CEFAZOLIN SODIUM IN 0.9 % NACL 2 GM/100 ML BAG IV ONE (06:33)
[2020-07-01] MEDS ORDERED: CELECOXIB 100 MG CAPSULE PO ONE (06:34)
[2020-07-01] MEDS ORDERED: BUPIVACAINE 0.25% PF 30 ML VIAL ONE (06:57)
[2020-07-01] MEDS ORDERED: LACTATED RINGERS 1,000 ML IV ONE ×2 (07:04→13:00)
[2020-07-01] MEDS ORDERED: DEXAMETHASONE 10 MG/ML VIAL ONE (07:19)
--- NOTE | 2020-07-01 07:23 | ANESTHESIA ---
Pre-Anesthesia VS, & Labs - Diagnosis left shoulder osteoarthritis - Procedure left total shoudler replacement arthroplasty Vital Signs: Temp Pulse Resp BP Pulse Ox 36.8 C 65 16 114/64 98 07/01/20 06:35 07/01/20 06:35 07/01/20 06:35 07/01/20 06:35 07/01/20 06:35 Height: 5 ft 2 in Weight (kg): 68 kg Body Mass Index: 27.3 BMI Classification: Overweight - NPO >8 hours - Is Patient ?: No - Lab Results Lab results reviewed: Yes Home Medications and Allergies Home Medications: Ambulatory Orders Aripiprazole [Abilify] 10 mg PO QPM 06/23/20 Nitroglycerin [Nitrostat] 0.4 mg SL Q5MIN PRN 06/23/20 Triamcinolone Acetonide 0.1% [Triamcinolone Acetonide] 1 applic TP TID 06/23/20 Triamcinolone Acetonide [Oralone] 1 applic DT TID 06/23/20 polyethylene glycoL 3350 [Miralax] 1.5 cap PO DAILY 06/23/20 Lorazepam 0.5 mg PO QPM PRN 12/10/12 Losartan Potassium [Cozaar] 100 mg PO DAILY 12/10/12 Omeprazole [PriLOSEC] 20 mg PO DAILY 12/10/12 Carvedilol [Coreg] 12.5 mg PO BID 08/03/16 Citalopram [CeleXA] 20 mg PO DAILY 08/03/16 Furosemide [Lasix] 40 mg PO DAILY 08/03/16 Rivaroxaban [Xarelto] 20 mg PO DAILY 08/03/16 Spironolactone 12.5 mg PO DAILY 08/03/16 traMADol [Ultram] 50 mg PO QID PRN 08/03/16 Aripiprazole [Abilify] 10 mg PO QPM 06/23/20 Nitroglycerin [Nitrostat] 0.4 mg SL Q5MIN PRN 06/23/20 Triamcinolone Acetonide 0.1% [Triamcinolone Acetonide] 1 applic TP TID 06/23/20 Triamcinolone Acetonide [Oralone] 1 applic DT TID 06/23/20 polyethylene glycoL 3350 [Miralax] 1.5 cap PO DAILY 06/23/20 Allergies/Adverse Reactions: Allergies Allergy/AdvReac Type Severity Reaction Status Date / Time Penicillins Allergy Unknown Rash Verified 08/03/16 14:59 lisinopril Allergy Respiratory Verified 08/03/16 14:59 oxycodone [Oxycodone] Allergy Unknown Verified 06/23/20 10:11 Anes History & Medical History - Anesthetic History Anesthesia Complications: reports: No previous complications Family history of Anesthesia Complications: Denies Family history of Malignant Hyperthermia: Denies - Medical History Cardiovascular: reports: Atrial fibrillation Pulmonary: reports: None Gastrointestinal: reports: GERD Urinary: reports: Frequency Musculoskeletal: reports: Osteoarthritis Endocrine/Autoimmune: reports: None Blood Disorders: reports: None Skin: reports: None Smoking Status: Never smoker - Surgical History General: Colonoscopy Eyes Ears Nose Throat (EENT): Tonsil/Adenoidectomy Gynecologic: section Orthopedic: Spine surgery Results - EKG Results EKG Comparison: Reviewed EKG - Echo Results Echo Results: Report reviewed Exam General: Alert, Oriented x3, Cooperative, No acute distress Dental: Dentures full Upper, Dentures full Lower Mouth Openin Fingerbreadth Neck Mobility: Limited Mallampati classification: III Respiratory: Lungs clear, Normal breath sounds, No respiratory distress, No accessory muscle use Cardiovascular: Normal S1, Normal S2, No murmurs Plan Anesthesia Type: General, Interscalene Block Consent for Procedure(s) Verified and Reviewed: Yes Code Status: Attempt Resuscitation ASA classification: 2-Mild systemic disease Is this case an emergency?: No
[2020-07-01] MEDS ORDERED: METOCLOPRAMIDE 10 MG/2 ML VIAL IVP PRN ×2 (07:25→15:36)
[2020-07-01] MEDS ORDERED: HYDROmorphone 0.5 MG/0.5 ML SYRINGE IVP PRN ×2 (07:25→15:36)
[2020-07-01] MEDS ORDERED: MORPHINE 2 MG/ML CARPUJECT IVP PRN ×2 (07:25→15:36)
[2020-07-01] MEDS ORDERED: ONDANSETRON 4 MG/2 ML VIAL IVP PRN ×3 (07:25→15:36)
[2020-07-01] MEDS ORDERED: ATROPINE ABBOJECT 1 MG/10 ML SYRINGE IVP PRN ×2 (07:25→15:36)
[2020-07-01] MEDS ORDERED: fentaNYL 100 MCG/2 ML VIAL IVP PRN ×2 (07:25→15:36)
[2020-07-01] MEDS ORDERED: NALOXONE 0.4 MG/ML VIAL IVP PRN ×2 (07:25→15:36)
[2020-07-01] MEDS ORDERED: ePHEDrine 50 MG/ML VIAL IVP PRN ×2 (07:25→15:36)
[2020-07-01] MEDS ORDERED: GLYCOPYRROLATE 1 MG/5 ML VIAL IVP ONE (07:40)
[2020-07-01] MEDS ORDERED: PROPOFOL 200 MG/20 ML VIAL IVP ONE (07:40)
[2020-07-01] MEDS ORDERED: KETOROLAC 30 MG/ML VIAL IVP ONE (07:40)
[2020-07-01] MEDS ORDERED: ROCURONIUM 50 MG/5 ML VIAL IVP ONE (07:40)
[2020-07-01] MEDS ORDERED: ePHEDrine 50 MG/ML VIAL IVP ONE (07:40)
[2020-07-01] MEDS ORDERED: MIDAZOLAM 2 MG/2 ML VIAL IVP ONE (07:40)
[2020-07-01] MEDS ORDERED: PHENYLEPHRINE 10 MG/ML VIAL IV ONE (07:40)
[2020-07-01] MEDS ORDERED: LACTATED RINGERS 1,000 ML IV SCH ×3 (08:00→16:00)
[2020-07-01] MEDS: THROMBIN (BOVINE) 5,000 UNIT VIAL TOP ONE ×2 (09:06→09:34)
[2020-07-01] MEDS ORDERED: ALBUMIN 25% 12.5 GM/50 ML VIAL IV ONE (10:46)
[2020-07-01 11:27] LABS: HGB - HEMOGLOBIN 8.7 g/dL (12.0-16.0)
--- NOTE | 2020-07-01 12:35 | OPERATIVE REPORT ---
Operative Report - General Admit Date: 07/01/20 Planned Procedure: Exploration of left axilla for hemorrhage Pre-Op Diagnosis: Left axillary hemorrhage Procedure Performed: Exploration and repair of left axillary artery Post Op Diagnosis: left axillary hemorrhage due to injury to left axillary artery - Procedure Note Primary Surgeon: Arnie Vargas MD Secondary Surgeon: Bryon Villeda MD, Jose REYES Anesthesia Provider: Cristino Chung CRNA Anesthesia Technique: General ET tube, Regional block Pathology: none Estimated Blood Loss (mL): 750 Indications: Profuse bleeding during elective left total shoulder arthroplasty. Findings: A branch (possibly the coraco acromial artery) had torn away from the left axillary artery causing the hemorrhage. Following the repair the artery was patent distally by palpation and doppler. Complications: None apparent. - Other Other Information/Narrative: I was asked to intraoperatively consult and manage acute major hemorrhage during a left shoulder total arthroplasty procedure. The new prosthesis had been implanted and the patient's incision was about to be closed when the hemorrhage was discovered. Upon arrival in the OR the patient's left shoulder surgical wound, located anteriorly, was packed with lap sponges which was temporarily controlling the hemorrhage. Patient was hypotensive and the patient's wound was left undisturbed until her hemodynamics improved. The sponges were removed and marked bleeding was seen to be coming from the lateral side of left axillary artery where a branch, perhaps the coraco-acromial artery appeared to have been avulsed from the axillary artery proper. Bleeding was able to be controlled initially digitally, then by placing vascular clamps proximally and distally and finally using a Satinsky clamp the laceration was able to be visualized while bleeding remained controlled and the artery was then repaired with continuous 3- 0 Prolene sutures. The vascular clamp was removed and hemostasis was confirmed. The artery remained patent with pulsatile flow by palpation and doppler. A doppler was also used to confirm pulsatile flow in the left brachial artery at the elbow. At this point, with the patient hemodynamically stable and the hemorrhage controlled, I turned the remainder of the procedure back over to Dr. Villeda. During my portion of the surgery, Dr. Villeda and AMY Jacome assisted with suction and exposure.
--- NOTE | 2020-07-01 13:11 | OPERATIVE REPORT ---
Operative Report - General Admit Date: 07/01/20 Procedure Date: 07/01/20 Planned Procedure: left total shoulder arthroplasty Pre-Op Diagnosis: Osteoarthritis left glenohumeral joint Procedure Performed: Left total shoulder arthroplasty: Integra titaln total shoulder: humerus; 13 stem 12 std body. 44X 19 mm head; extra small glenoid, pegged, cemented - Procedure Note Primary Surgeon: Bryon Villeda MD Secondary Surgeon: LARRY Barrett Anesthesia Provider: Cristino Chung Anesthesia Technique: General ET tube, Regional block Pathology: marked cartilage loss glenohumeralJoint with eburnated bone surfaces and deformity of humeral head. She had A concentric wear pattern, type A glenoid with concentric wear without subluxation. The rotator cuff was intact. Estimated Blood Loss (mL): 1,000 Indications: Severe pain left shoulder, limited motion, marked difficulty with activities of daily living, constant pain nearly like she keeps her arm totally outside and she still has pain. She is tried conservative treatment has not has not helped. She had preoperative imaging and CT scan.She had crepitus on exam. Her radiologic imaging was very abnormal with complete loss of joint space left shoulder Findings: She had eburnated bone surfaces to humeral head and glenoid, intact rotator cuff. There are osteophytes about the glenoid and humeral head. Complications: Excessive bleeding secondary to vascular fragility and tear of a branch of the axillary vessel. The axillary artery and vein were intact confirmed by intraoperative Doppler and intact arterial Doppler signal to brachial artery at the elbow. Because of the vascular problem, Dr. Arnie Vargas was called in to ligate the branch of the axillary vessel contributing to the excessive bleeding. The bleeding was controlled. The patient did have some hypotension and required crystalloid to help stabilize her blood pressure. - Other Other Information/Narrative: The patient was brought to the operating room and placed in a beachchair position using the [employer] beachchair positioner and the spider to arm [place]. She was given a general endotracheal anesthetic and also an interscalene block. The left shoulder and left upper extremity were prepped and draped in a sterile manner in the usual fashion. A timeout procedure was performed by the entire operating room team and all were in agreement. The patient was placed in approximately 30 degrees of sitting with the hips and knees flexed also about 30 degrees. A standard longitudinal deltopectoral incision was made. The incision was started midway between the coracoid and the acromion laterally. The deltopectoral interval was identified and the cephalic vein was taken medially. The biceps tendon was identified. The upper 1 cm of the pectoralis was released. The rotator interval was opened superior to the subscapularis. The subscapularis was divided using a tenotomy with the distal dissection being carried against the humeral neck. The inferior capsule was progressively released beyond 6:00 from the humerus with the arm being externally rotated. This allowed for subluxation of the humeral head. Prior to the anesthesia, she did have good external rotation of at least 35 degrees. The bicipital groove was identified. The biceps tendon was intact, mildly hypertrophied. A starting awl was made to make an intramedullary hole just posterior to the bicipital groove within the humeral head. The intramedullary guide was then applied and the cutting guide was secured with half pins. Care was taken to maintain an intact rotator cuff with the osteotomy. The humeral head was sized at about a 44 mm head. A cap was placed over the osteotomy of the humerus. The glenoid was exposed with 2 retractors 1 posterior and 1 anterior, both directly against bone. This provided good visualization of the glenoid with some abduction of the arm. The glenoid was sized at a extra small. A guidepin was inserted in the center of the glenoid using the glenoid guide. A central hole was made with stop. The next guide was inserted to do the peripheral holes. The guide punch was inserted. All the holes hadIntact bone. The holes were cleaned with saline and hydrogen peroxide, Gelfoam and thrombin. A trial glenoid had been inserted and had good concentric fit and no tilting in any direction with stress. The permanent glenoid was impacted, had excellent fit. Cement was placed in the peripheral holes but not the central hole. The humerus was then carefully opened and broaching was carried out to a #13. Trial reduction was performed with very with 42 and 44 heads and the 44 mm head gave the best stability with the least 50% posterior subluxation. The permanent prosthesis was then inserted. The head was applied before fully seating it. An eccentric head had been utilized and it had been marked prior to insertion. There was good coverage. Calcar reaming had also been performed prior to insertion of the permanent prosthesis. The glenohumeral joint was stable. The subscapularis had been tagged with #2 FiberWire suture. This was closed to the tenotomy except for the distal and 1 bleeding was encountered just at the lateral edge of the conjoined tendon proximally 5 cm distal to the coracoid process. Initially I thought that this might have been the cephalic vein but the cephalic vein was intact and this was a branch of axillary vessel. The wound was packed and a general surgeon was called, Dr. Vargas to facilitate control of bleeding which was successfully accomplished. There was better determined that this was a branch of either the axillary artery or vein. The axillary artery was visualized and was completely intact. The presence of the a xillary artery was determined by intraoperative sterile Doppler. After the bleeding had been controlled, the subscapularis repair was completed. The stability was good with 50% subluxation that promptly return to center with release of pressure. She had 120 degrees of forward flexion and internal rotation to her chest. The components were stable and the motion was good. The deltopectoral interval was closed with 0 Vicryl. The skin was closed with 2-0 Vicryl. The skin incision was closed standstill bianca. A silver impregnated dressing was applied. She received 2 g of Ancef before the incision and 2 g of Ancef during the procedure. Because of the blood loss and some hypotension, her Xarelto will be held until it can be determined that bleeding is well controlled and stabilized in the postop period. She can be on 81 mg of aspirin twice daily.
[2020-07-01 13:42] LABS: BASOPHILS % (AUTO) 0.2 %; EOSINOPHILS % (AUTO) 0.1 %; LYMPHOCYTES # (AUTO) 0.5 10^3/uL (1.5-3.5); LYMPHOCYTES % (AUTO) 5.3 %; MEAN CORPUSCULAR HEMOGLOBIN 31.3 pg (27.0-31.0); MEAN CORPUSCULAR HGB CONC 30.7 g/dL (32.0-36.0); MEAN CORPUSCULAR VOLUME 101.7 fL (81.0-99.0); MEAN PLATELET VOLUME 9.2 fL (7.9-10.8); MONOCYTES # (AUTO) 0.5 10^3/uL (0.0-1.0); MONOCYTES % (AUTO) 5.2 %; NEUTROPHILS # (AUTO) 8.4 10^3/uL (1.5-6.6); NEUTROPHILS % (AUTO) 88.8 %; PLT - PLATELET COUNT 184 10^3/uL (130-450); RED BLOOD COUNT 1.76 10^6/uL (4.20-5.40); RED CELL DISTRIBUTION WIDTH 12.5 % (12.0-15.0); WHITE BLOOD COUNT 9.5 x10^3/uL (4.8-10.8)
[2020-07-01 13:49] LABS: HGB - HEMOGLOBIN 5.5 g/dL (12.0-16.0)
[2020-07-01 13:53] LABS: ALBUMIN 2.5 g/dL (3.2-5.5); ALBUMIN/GLOBULIN RATIO 1.3 (1.0-2.2); BILIRUBIN,TOTAL 0.4 mg/dL (0.2-1.0); CALCIUM 7.9 mg/dL (8.5-10.3); CREATININE 1.1 mg/dL (0.4-1.0); TOTAL PROTEIN 4.4 g/dL (6.7-8.2)
[2020-07-01] MEDS ORDERED: SODIUM CHLORIDE FLUSH 0.9% 10 ML SYRINGE IVP PRN (14:32)
[2020-07-01] MEDS ORDERED: ACETAMINOPHEN 325 MG TABLET PO PRN (14:32)
--- NOTE | 2020-07-01 14:45 | ANESTHESIA POST OP EVALUATION ---
Anesthesia Post Eval - Post Anesthesia Eval Vitals: Last Vital Signs Temp 36.1 C L 07/01/20 14:20 Pulse 84 07/01/20 14:30 Resp 13 07/01/20 14:30 BP 68/48 L 07/01/20 14:30 Pulse Ox 100 07/01/20 14:30 CV Function Including HR & BP: positive: Stable, Additional Therapies Ordered (supplemented with neosynephrine 300mcg, Ephedrine 10mg in pacu awaiting PRBCs. 1st unit administered in PACU, unit two to be given in ICU) Pain Control: positive: Satisfactory Nausea & Vomiting: positive: Negative Mental Status: positive: Baseline (alert and oriented) Respiratory Status: Airway Patent Hydration Status: Satisfactory (adequate urine OP but BP remains lower end, 70,80s systolic.) Anesthesia Complications: positive: None
--- NOTE | 2020-07-01 16:27 | ANESTHESIA PROCEDURE NOTE ---
Anesth Central Line Template - Central Line Central Line Preparation: Consent Obtained, Time out completed, Ultrasound used, Sterile prep and drape Central line location: Right IJ Central line type: Triple lumen Central line catheter tip site resides: Superior vena cava (SVC) Central line aftercare: Secured, Placement confirmed, No pneumothorax, No complications, Bundle checklist complete, Pt tolerated well, Other (Consent and ID. Pt draped after sterile gown, glove and prep. Steep Tberg for sliver of a visible IJ. Access with attempt x1. Wire threaded easily. Return to supine level. Dilator. Cath to 16, caps easily aspirate and flush. Secured. Tegaderm. call for PCXR. Ok to use line.)
--- NOTE | 2020-07-01 16:38 | XRAY Report ---
PROCEDURE: Chest for Line Placement INDICATIONS: Post-op shock TECHNIQUE: One view of the chest was acquired. COMPARISON: None FINDINGS: Surgical changes and devices: A right IJ central line is seen. Lungs and pleura: No pleural effusions or pneumothorax. Lungs are clear. There is elevation of the left hemidiaphragm, not present on the prior x-ray in 2017. Mediastinum: Mediastinal contours appear normal. Heart size is normal. Bones and chest wall: No suspicious bony lesions. The the cervicothoracic spine has pedicular screw and nano fixation. Overlying soft tissues appear unremarkable. IMPRESSION: 1. Central line appears well placed with the tip in the SVC. 2. No acute abnormality. Reviewed by: Kimo River on 07/01/2020 4:37 PM PST Approved by: Kimo River on 07/01/2020 4:37 PM [facility] Station ID: [id number]
[2020-07-01] MEDS: ceFAZolin 2 GM in SODIUM CHLORIDE 0.9% 100ML 100 ML IV SCH ×2 (16:50→23:42)
[2020-07-01] MEDS: SODIUM CHLORIDE FLUSH 0.9% 10 ML SYRINGE IVP SCH (16:55)
[2020-07-01] MEDS ORDERED: SODIUM CHLORIDE FLUSH 0.9% 10 ML SYRINGE IVP SCH (17:00)
--- NOTE | 2020-07-01 17:09 | PROVIDER PROGRESS NOTE ---
Subjective - Prog Note Date Prog Note Date: 07/01/20 Prog Note Time: 17:07 - Subjective Pt reports feeling: Improved Subjective: Visited patient about 6 hours postoperatively from left total shoulder replacement with bleeding vessel complication. Patient is alert and not in any pain and feeling much better. Talked with patient and she is she is able to actively move her left arm was able to palpate a radial pulse arm has warmth no pain no current paresthesias.Patient now transferred to ICU received a central line 2 units of blood is getting frequent blood pressure checks although remains hypotensive. Patient under care of hospitalist Dr. Kitchen This is a progress check. Objective - Vital Signs/Intake & Output Vital Signs: Vital Signs x48h Temp Pulse Pulse Resp BP BP Pulse Ox 07/01/20 16:24 36.6 C 88 18 70/53 L 07/01/20 16:00 83 21 64/52 L 100 07/01/20 15:53 36.6 C 82 22 71/50 L 07/01/20 15:40 36.6 C 87 14 72/55 L 07/01/20 15:30 36.5 C 91 24 70/50 L 07/01/20 14:45 36.2 C L 95 18 70/50 L 100 07/01/20 14:30 84 13 68/48 L 100 07/01/20 14:25 87 11 L 65/47 L 94 07/01/20 14:20 36.1 C L 88 18 67/45 L 99 07/01/20 14:15 36.1 C L 86 13 67/46 L 100 07/01/20 14:10 91 22 48/45 L 100 07/01/20 14:05 88 19 59/45 L 100 07/01/20 14:00 92 13 59/45 L 100 07/01/20 13:55 93 22 58/45 L 100 07/01/20 13:50 83 17 52/40 L 100 07/01/20 13:45 75 19 74/46 L 100 07/01/20 13:40 83 13 79/45 L 100 07/01/20 13:35 88 21 64/43 L 98 07/01/20 13:30 86 17 68/46 L 100 07/01/20 13:25 86 17 68/48 L 100 07/01/20 13:20 84 21 76/49 L 100 07/01/20 13:15 85 18 79/45 L 98 07/01/20 13:10 92 17 77/45 L 100 07/01/20 13:05 88 23 72/61 L 100 07/01/20 13:00 88 17 90/41 L 100 07/01/20 12:54 36.4 C L 86 20 100/39 L 100 Intake & Output: Intake & Output 06/28/20 06/29/20 06/30/20 07/01/20 23:59 23:59 23:59 23:59 Intake Total 300 Output Total 1070 Balance -770 - Objective General Appearance: positive: Alert Eyes Bilateral: positive: Normal inspection Peripheral Pulses: 1+ Radial (L) - Lab Results Fish Bones: 07/01/20 13:36 07/01/20 13:36 Other Labs: Lab Results x24hrs 07/01/20 07/01/20 07/01/20 Range/Units 15:06 13:36 13:36 WBC 9.5 (4.8-10.8) x10^3/uL RBC 1.76 L (4.20-5.40) 10^6/uL Hgb 5.5 L* (12.0-16.0) g/dL Hct 17.9 L* (37.0-47.0) % MCV 101.7 H (81.0-99.0) fL MCH 31.3 H (27.0-31.0) pg MCHC 30.7 L (32.0-36.0) g/dL RDW 12.5 (12.0-15.0) % Plt Count 184 (130-450) 10^3/uL MPV 9.2 (7.9-10.8) fL Neut # (Auto) 8.4 H (1.5-6.6) 10^3/uL Lymph # (Auto) 0.5 L (1.5-3.5) 10^3/uL [place] # (Auto) 0.5 (0.0-1.0) 10^3/uL Eos # (Auto) 0.0 (0.0-0.7) 10^3/uL Baso # (Auto) 0.0 (0.0-0.1) 10^3/uL Absolute Nucleated RBC 0.00 x10^3/uL Nucleated RBC % 0.0 /100WBC Sodium 137 (135-145) mmol/L Potassium 4.5 (3.5-5.0) mmol/L Chloride 105 (101-111) mmol/L Carbon Dioxide 25 (21-32) mmol/L Anion Gap 7.0 (6-13) BUN 20 (6-20) mg/dL Creatinine 1.1 H (0.4-1.0) mg/dL Estimated GFR (MDRD) 48 L (>89) Glucose 161 H (70-100) mg/dL Calcium 7.9 L (8.5-10.3) mg/dL Total Bilirubin 0.4 (0.2-1.0) mg/dL AST 28 (10-42) IU/L ALT 18 (10-60) IU/L Alkaline Phosphatase 41 L (42-121) IU/L Troponin I High Sens 13.8 (2.3-14.8) ng/L Total Protein 4.4 L (6.7-8.2) g/dL Albumin 2.5 L (3.2-5.5) g/dL Globulin 1.9 L (2.1-4.2) g/dL Albumin/Globulin Ratio 1.3 (1.0-2.2) Blood Type Blood Type Recheck Antibody Screen Antibody Identification Crossmatch 07/01/20 07/01/20 07/01/20 Range/Units 11:19 11:06 11:06 WBC (4.8-10.8) x10^3/uL RBC (4.20-5.40) 10^6/uL Hgb 8.7 L (12.0-16.0) g/dL Hct 27.3 L (37.0-47.0) % MCV (81.0-99.0) fL MCH (27.0-31.0) pg MCHC (32.0-36.0) g/dL RDW (12.0-15.0) % Plt Count (130-450) 10^3/uL MPV (7.9-10.8) fL Neut # (Auto) (1.5-6.6) 10^3/uL Lymph # (Auto) (1.5-3.5) 10^3/uL [place] # (Auto) (0.0-1.0) 10^3/uL Eos # (Auto) (0.0-0.7) 10^3/uL Baso # (Auto) (0.0-0.1) 10^3/uL Absolute Nucleated RBC x10^3/uL Nucleated RBC % /100WBC Sodium (135-145) mmol/L Potassium (3.5-5.0) mmol/L Chloride (101-111) mmol/L Carbon Dioxide (21-32) mmol/L Anion Gap (6-13) BUN (6-20) mg/dL Creatinine (0.4-1.0) mg/dL Estimated GFR (MDRD) (>89) Glucose (70-100) mg/dL Calcium (8.5-10.3) mg/dL Total Bilirubin (0.2-1.0) mg/dL AST (10-42) IU/L ALT (10-60) IU/L Alkaline Phosphatase (42-121) IU/L Troponin I High Sens (2.3-14.8) ng/L Total Protein (6.7-8.2) g/dL Albumin (3.2-5.5) g/dL Globulin (2.1-4.2) g/dL Albumin/Globulin Ratio (1.0-2.2) Blood Type A NEGATIVE Blood Type Recheck A NEGATIVE Antibody Screen POSITIVE Antibody Identification Anti-D Crossmatch See Detail - Other Results/Comments Other Results/Comments: Patient's left upper extremity is warm, patient has some range of motion and has a +1 palpable radial pulse. The limb is warm to the touch. Patient reports no pain. We went over the range of motion protocol where not to exceed excessive external rotation and surgical arm. Extent of surgery prevents full exam. Patient stressing is intact with no signs Of bleeding through Assessment/Plan - Problem List (1) Osteoarthritis Impression: Patient remains hypotensive and is in the ICU for monitoring. Patient received 2 units of blood is getting a repeat H&H this evening. Patient is under the care of hospitalist Dr. Power and is currently on bedrest and have discontinued antiplatelet and anticoagulation therapy temporarily. The patient is able to move the limb the shows no signs or system symptoms of ischemia. Patient is having her postoperative pain managed well, no complaints of pain.When patient has been stabilized for her blood pressure she can then resume passive range of motion exercises left shoulder with mild active assist. No extreme external rotation greater than 30 degrees by PT OT. Patient spouse is bedside. Patient is alert and in good spirits Current plan: 1) continue under care of intensive care hospitalist 2) when hypotension is stabilized and has transferred out of ICU may begin PT OT protocol as noted above. 3) No dressing changes required at this point, first dressing change change would be at initial postop visit this Monday Qualifiers: Osteoarthritis location: shoulder Osteoarthritis type: primary Late rality: left Qualified Code(s): M19.012 - Primary osteoarthritis, left shoulder
--- NOTE | 2020-07-01 17:22 | PROVIDER PROGRESS NOTE ---
Subjective - Prog Note Date Prog Note Date: 07/01/20 Prog Note Time: 17:00 - Subjective Subjective: Comfortable, no pain, denies weakness in left hand, notes mild numbness in fingers. Objective - Vital Signs/Intake & Output Reviewed Vital Signs: Yes Vital Signs: Vital Signs x48h Temp Pulse Pulse Resp BP BP Pulse Ox 07/01/20 17:12 36.6 C 85 16 100 07/01/20 16:24 36.6 C 88 18 70/53 L 07/01/20 16:00 83 21 64/52 L 100 07/01/20 15:53 36.6 C 82 22 71/50 L 07/01/20 15:40 36.6 C 87 14 72/55 L 07/01/20 15:30 36.5 C 91 24 70/50 L 07/01/20 14:45 36.2 C L 95 18 70/50 L 100 07/01/20 14:30 84 13 68/48 L 100 07/01/20 14:25 87 11 L 65/47 L 94 07/01/20 14:20 36.1 C L 88 18 67/45 L 99 07/01/20 14:15 36.1 C L 86 13 67/46 L 100 07/01/20 14:10 91 22 48/45 L 100 07/01/20 14:05 88 19 59/45 L 100 07/01/20 14:00 92 13 59/45 L 100 07/01/20 13:55 93 22 58/45 L 100 07/01/20 13:50 83 17 52/40 L 100 07/01/20 13:45 75 19 74/46 L 100 07/01/20 13:40 83 13 79/45 L 100 07/01/20 13:35 88 21 64/43 L 98 07/01/20 13:30 86 17 68/46 L 100 07/01/20 13:25 86 17 68/48 L 100 07/01/20 13:20 84 21 76/49 L 100 07/01/20 13:15 85 18 79/45 L 98 07/01/20 13:10 92 17 77/45 L 100 07/01/20 13:05 88 23 72/61 L 100 07/01/20 13:00 88 17 90/41 L 100 07/01/20 12:54 36.4 C L 86 20 100/39 L 100 Intake & Output: Intake & Output 06/28/20 06/29/20 06/30/20 07/01/20 23:59 23:59 23:59 23:59 Intake Total 300 Output Total 1070 Balance -770 - Objective General Appearance: positive: No acute distress, Alert Peripheral Pulses: 1+ Radial (L) Extremities: positive: Other (shoulder dressing dry/intact; mild/mod ecchymosis noted. left hand warm, nl cap fill, moves fingers well; palpable radial pulse) - Lab Results Fish Bones: 07/01/20 13:36 07/01/20 13:36 Other Labs: Lab Results x24hrs 07/01/20 07/01/20 07/01/20 Range/Units 15:06 13:36 13:36 WBC 9.5 (4.8-10.8) x10^3/uL RBC 1.76 L (4.20-5.40) 10^6/uL Hgb 5.5 L* (12.0-16.0) g/dL Hct 17.9 L* (37.0-47.0) % MCV 101.7 H (81.0-99.0) fL MCH 31.3 H (27.0-31.0) pg MCHC 30.7 L (32.0-36.0) g/dL RDW 12.5 (12.0-15.0) % Plt Count 184 (130-450) 10^3/uL MPV 9.2 (7.9-10.8) fL Neut # (Auto) 8.4 H (1.5-6.6) 10^3/uL Lymph # (Auto) 0.5 L (1.5-3.5) 10^3/uL [place] # (Auto) 0.5 (0.0-1.0) 10^3/uL Eos # (Auto) 0.0 (0.0-0.7) 10^3/uL Baso # (Auto) 0.0 (0.0-0.1) 10^3/uL Absolute Nucleated RBC 0.00 x10^3/uL Nucleated RBC % 0.0 /100WBC Sodium 137 (135-145) mmol/L Potassium 4.5 (3.5-5.0) mmol/L Chloride 105 (101-111) mmol/L Carbon Dioxide 25 (21-32) mmol/L Anion Gap 7.0 (6-13) BUN 20 (6-20) mg/dL Creatinine 1.1 H (0.4-1.0) mg/dL Estimated GFR (MDRD) 48 L (>89) Glucose 161 H (70-100) mg/dL Calcium 7.9 L (8.5-10.3) mg/dL Total Bilirubin 0.4 (0.2-1.0) mg/dL AST 28 (10-42) IU/L ALT 18 (10-60) IU/L Alkaline Phosphatase 41 L (42-121) IU/L Troponin I High Sens 13.8 (2.3-14.8) ng/L Total Protein 4.4 L (6.7-8.2) g/dL Albumin 2.5 L (3.2-5.5) g/dL Globulin 1.9 L (2.1-4.2) g/dL Albumin/Globulin Ratio 1.3 (1.0-2.2) Blood Type Blood Type Recheck Antibody Screen Antibody Identification Crossmatch 07/01/20 07/01/20 07/01/20 Range/Units 11:19 11:06 11:06 WBC (4.8-10.8) x10^3/uL RBC (4.20-5.40) 10^6/uL Hgb 8.7 L (12.0-16.0) g/dL Hct 27.3 L (37.0-47.0) % MCV (81.0-99.0) fL MCH (27.0-31.0) pg MCHC (32.0-36.0) g/dL RDW (12.0-15.0) % Plt Count (130-450) 10^3/uL MPV (7.9-10.8) fL Neut # (Auto) (1.5-6.6) 10^3/uL Lymph # (Auto) (1.5-3.5) 10^3/uL [place] # (Auto) (0.0-1.0) 10^3/uL Eos # (Auto) (0.0-0.7) 10^3/uL Baso # (Auto) (0.0-0.1) 10^3/uL Absolute Nucleated RBC x10^3/uL Nucleated RBC % /100WBC Sodium (135-145) mmol/L Potassium (3.5-5.0) mmol/L Chloride (101-111) mmol/L Carbon Dioxide (21-32) mmol/L Anion Gap (6-13) BUN (6-20) mg/dL Creatinine (0.4-1.0) mg/dL Estimated GFR (MDRD) (>89) Glucose (70-100) mg/dL Calcium (8.5-10.3) mg/dL Total Bilirubin (0.2-1.0) mg/dL AST (10-42) IU/L ALT (10-60) IU/L Alkaline Phosphatase (42-121) IU/L Troponin I High Sens (2.3-14.8) ng/L Total Protein (6.7-8.2) g/dL Albumin (3.2-5.5) g/dL Globulin (2.1-4.2) g/dL Albumin/Globulin Ratio (1.0-2.2) Blood Type A NEGATIVE Blood Type Recheck A NEGATIVE Antibody Screen POSITIVE Antibody Identification Anti-D Crossmatch See Detail Assessment/Plan - Problem List (1) Postoperative hemorrhagic shock Impression: clinically stable with no evidence of active bleeding s/p repair of axillary artery. Agree with present management of observation, transfusion as necessary to keep hgb at least 7, serial pulse checks, ow as per ortho and hospitalist services. Qualifiers: Encounter type: subsequent encounter Qualified Code(s): T81.19XD - Other postprocedural shock, subsequent encounter
[2020-07-01] MEDS: ACETAMINOPHEN 500 MG TABLET PO SCH ×2 (18:01→23:42)
[2020-07-01 18:20] LABS: BASOPHILS # (AUTO) 0.1 10^3/uL (0.0-0.1); BASOPHILS % (AUTO) 0.3 %; EOSINOPHILS # (AUTO) 0.1 10^3/uL (0.0-0.7); EOSINOPHILS % (AUTO) 0.3 %; HGB - HEMOGLOBIN 9.7 g/dL (12.0-16.0); LYMPHOCYTES # (AUTO) 0.9 10^3/uL (1.5-3.5); LYMPHOCYTES % (AUTO) 5.1 %; MEAN CORPUSCULAR HEMOGLOBIN 31.4 pg (27.0-31.0); MEAN CORPUSCULAR HGB CONC 33.1 g/dL (32.0-36.0); MEAN CORPUSCULAR VOLUME 94.8 fL (81.0-99.0); MEAN PLATELET VOLUME 9.4 fL (7.9-10.8); MONOCYTES % (AUTO) 5.9 %; NEUTROPHILS # (AUTO) 14.9 10^3/uL (1.5-6.6); PLT - PLATELET COUNT 195 10^3/uL (130-450); RED BLOOD COUNT 3.09 10^6/uL (4.20-5.40); RED CELL DISTRIBUTION WIDTH 13.9 % (12.0-15.0)
[2020-07-01 18:27] LABS: INR 1.2 (0.8-1.2); PT - PROTHROMBIN TIME 13.6 secs (9.9-12.6)
[2020-07-01] MEDS ORDERED: NITROGLYCERIN SL 0.4 MG TABLET SL PRN (18:40)
[2020-07-01] MEDS ORDERED: LORazepam 0.5 MG TABLET PO PRN (19:04)
[2020-07-01] MEDS: ethyl alcohoL 62% SWAB AMPULE NAS SCH (20:08)
--- NOTE | 2020-07-01 20:54 | HISTORY & PHYSICAL EXAMINATION ---
DATE OF SERVICE: 07/01/2020 Physician: Debra Hook MD HISTORY OF PRESENT ILLNESS: This is an 84-year-old white female with a history of cardiomyopathy with EF of 45% noted by Echo done here, approximately 8 months ago, history of left bundle branch block and anemia with hemoglobin running about 8. Patient underwent outpatient preop clearance to undergo orthopedic surgery for a left shoulder problem that needed arthroplasty. She had preop COVID testing done 3 days ago, which was negative and she presented for her scheduled surgery today. She underwent successful total arthroplasty of the left shoulder. In the final moments of the surgery, the orthopedic surgeon nicked the artery in the left shoulder, and a general surgeon needed to be called in to assist with management of intraoperative hemorrhage. They estimated was that she lost approximately 1 liter of blood. The records showed that she became hypotensive with systolic blood pressures of approximately 70 mmHg and lower, that lasted approximately 90 minutes. She was brought to the PACU still hypotensive and in fact, at her lowest BP, with a systolic blood pressure of 49 mmHg. This patient was requested to have post-op consult with this Hospitalist team for management of her non-orthopedic comorbidities. However, with her current shock, a consult was called for management and to be on the Hospitalist team, requiring critical care management in the ICU. As such, I saw the patient in PACU. Post-operatively, patient received reversal meds to awaken and was extubated successfully and is supine, awake and conversant, appears pale, she was warm and dry. The patient will be admitted to Inpatient status on the Hospitalist's service, going to the ICU from PACU because of postop hemorrhagic shock. PAST MEDICAL HISTORY 1. Cardiomyopathy with EF of 45% on beta blockers and spironolactone. Type of cardiomyopathy is unknown from records review, but she is on sublingual NTG prn, therefore, she possibly has ischemic cardiomyopathy. 2. History of left bundle branch block. 3. Anemia. 4. History of atrial fibrillation for which she was on Xarelto. She is currently in sinus rhythm. ALLERGIES 1. PENICILLIN. 2. LISINOPRIL 3. OXYCODONE. MEDICATIONS 1. Abilify 10 mg every night. 2. Carvedilol 12.5 mg b.i.d. 3. Lasix 40 mg daily. 4. Losartan 100 mg daily. 5. Prilosec 20 mg daily. 6. Xarelto 20 mg daily. 7. Spironolactone 12.5 mg daily. 8. Celexa 20 mg daily. 9. Lorazepam 0.5 mg every night p.r.n. insomnia. 10. Nitroglycerin sublingual p.r.n. 11. Triamcinolone topical cream t.i.d. p.r.n. FAMILY HISTORY: No inherited diseases. SOCIAL HISTORY: This is obtained from chart review. She lives with her . There is no history of smoking or alcohol abuse. REVIEW OF SYSTEMS: This was done from chart review and the pertinent positives are listed in the HPI, the rest are negative. It is unknown what recent workup she has had for preop clearance and whether this was with cardiology. PHYSICAL EXAMINATION GENERAL: Pale, white female, supine and later in Trendelenburg position. She is in no visible distress. VITAL SIGNS: Blood pressure 64/43, heart rate of 88 in sinus rhythm, respiratory rate 21, room air saturation 98%. HEENT: Reveals moist oral mucosa. Extraocular movements are intact. Her skin is very pale. NECK: No JVD in a supine position. No carotid bruits. CHEST: Clear. HEART: Normal heart sounds without murmurs. ABDOMEN: Soft, nontender. EXTREMITIES: No clubbing, cyanosis, or edema. The left shoulder has a bandage. LABORATORY DATA: Preop labs are not available, but she had immediate postop labs done that showed normal electrolytes, BUN 20, creatinine 1.1. Normal liver tests. Albumin 2.5. Her preop hemoglobin was 8.7. Her immediate postop hemoglobin was 5.5 and post-op normal white count of 9.5 and normal platelet count of 184. INR 1.2 (Xarelto had been stopped for at least 24 hours). EKG: Normal sinus rhythm, indeterminate bundle-branch block, which is a change from her last EKG from 6 months ago that showed typical left bundle branch block. IMAGING: Chest x-ray was done after insertion of a CVP line in the ICU, and this showed no pulmonary abnormality, normal heart size, the central line was in the SVC and there was no pneumothorax. IMPRESSION/DIAGNOSES 1. Postoperative hemorrhagic shock. 2. Anemia. 3. Status post total arthroplasty of the shoulder. 4. Cardiomyopathy. 5. Bundle branch block. PLAN: Continue with management of shock in the ICU using blood products, crystalloids and colloids. We will also add Levophed in order to quickly obtain a MAP of at least 60 mmHg. Insert Mejia and continue with this for monitoring I's and O's. Passive range of motion of the left arm would be allowed in her bed, but no out of bed and no beginning of PT until she is hemodynamically stable. Follow her hemoglobin and hematocrit q. 12 hours. Hold any orders for aspirin or nonsteroidal products. No Xarelto will be resumed either until there is assurance that the bleeding has entirely stopped. Because this was an arterial injury, left radial pulse and Doppler will be rechecked for any ischemic complications after the repair of the artery which was the treatment for managing her hemorrhage. All her cardiac medications will be on hold because of the hypotension, and will plan yo resume the beta dano first when blood pressure will allow it. Hold all her diuretics also for several days, however. No diet will be started in case she has further worsening hemodynamics and needs emergency intubation. Otherwise, a slow advancement of diet will start tonight and advanced tomorrow. CODE STATUS: FULL CODE. DEEP VENOUS THROMBOSIS PROPHYLAXIS: Foot pumps. ATTESTATION: Patient will be expected to be discharged or transferred to another facility within 96 hours: Yes. cc: DO Bryon Montemayor MD TD: 07/01/2020 20:17 [email or web address]
[2020-07-01] MEDS ORDERED: ASPIRIN EC 81 MG TABLET PO SCH (21:00)
[2020-07-01] MEDS ORDERED: CELECOXIB 100 MG CAPSULE PO SCH (21:00)
[2020-07-01] MEDS: TRIAMCINOLONE ACETONIDE 454 APPLIC/454 GM JAR TOP SCH (21:09)
[2020-07-01] MEDS: FAMOTIDINE 20 MG TABLET PO SCH (21:09)
[2020-07-01 21:42] LABS: HGB - HEMOGLOBIN 9.4 g/dL (12.0-16.0)
[2020-07-01] MEDS: SODIUM CHLORIDE 0.9% 1,000 ML IV SCH (22:24)
[2020-07-02] MEDS: SODIUM CHLORIDE FLUSH 0.9% 10 ML SYRINGE IVP SCH ×4 (00:21→20:46)
[2020-07-02 04:49] LABS: BASOPHILS % (AUTO) 0.1 %; EOSINOPHILS % (AUTO) 1.5 %; HGB - HEMOGLOBIN 8.2 g/dL (12.0-16.0); LYMPHOCYTES % (AUTO) 12.1 %; MEAN CORPUSCULAR HEMOGLOBIN 31.1 pg (27.0-31.0); MEAN CORPUSCULAR HGB CONC 32.9 g/dL (32.0-36.0); MEAN CORPUSCULAR VOLUME 94.3 fL (81.0-99.0); MEAN PLATELET VOLUME 9.4 fL (7.9-10.8); MONOCYTES % (AUTO) 11.7 %; NEUTROPHILS % (AUTO) 74.3 %; PLT - PLATELET COUNT 175 10^3/uL (130-450); RED BLOOD COUNT 2.64 10^6/uL (4.20-5.40); WHITE BLOOD COUNT 13.7 x10^3/uL (4.8-10.8)
[2020-07-02 04:58] LABS: ABNORMAL LYMPHS % (MANUAL) 0 %
[2020-07-02 05:04] LABS: CALCIUM 7.9 mg/dL (8.5-10.3); CREATININE 1.2 mg/dL (0.4-1.0); MAGNESIUM 1.7 mg/dL (1.7-2.8)
[2020-07-02] MEDS: TRIAMCINOLONE ACETONIDE 454 APPLIC/454 GM JAR TOP SCH (05:23)
[2020-07-02 05:25] LABS: BAND NEUTROPHILS % (MANUAL) 3 %; LYMPHOCYTES # (MANUAL) 1.4 10^3/uL (1.5-3.5); LYMPHOCYTES % (MANUAL) 10 %; MONOCYTES # (MANUAL) 1.1 10^3/uL (0.0-1.0)
[2020-07-02 05:26] LABS: DIFFERENTIAL COMMENT MANUAL DIFFERENTIAL; PLATELET ESTIMATE, MANUAL NORMAL (130-450,000) (NORMAL); RBC MORPHOLOGY (MULTIPLE) NORMAL APPEARANCE (NORMAL)
[2020-07-02] MEDS: ACETAMINOPHEN 500 MG TABLET PO SCH (05:47)
--- NOTE | 2020-07-02 07:22 | PROVIDER PROGRESS NOTE ---
Subjective - Prog Note Date Prog Note Date: 07/02/20 Prog Note Time: 07:21 - Subjective Subjective: Patient alert and comfortable sitting up in bed. Reports mild achy pain superior shoulder. Denies other complaints Objective - Vital Signs/Intake & Output Vital Signs: Vital Signs x48h Temp Pulse Resp BP Pulse Ox 07/02/20 07:00 72 20 105/57 L 92 07/02/20 06:49 83 81/49 L 07/02/20 06:30 90 15 92/56 L 95 07/02/20 06:20 84 19 80/54 L 93 07/02/20 06:10 84 18 84/53 L 94 07/02/20 06:08 91 107/77 07/02/20 06:00 112 H 89/54 L 07/02/20 05:55 97 92/59 L 07/02/20 05:15 70 18 106/56 L 97 07/02/20 05:00 75 17 112/55 L 98 07/02/20 04:50 73 19 105/63 98 07/02/20 04:40 86 97/61 07/02/20 04:33 76 112/64 07/02/20 04:28 82 19 96/57 L 98 07/02/20 04:00 70 17 134/67 H 98 07/02/20 03:23 36.0 C L 07/02/20 03:00 68 20 140/64 H 98 07/02/20 02:00 70 16 132/63 H 93 07/02/20 01:00 75 15 130/68 93 07/02/20 00:00 81 19 123/74 94 Intake & Output: Intake & Output 06/29/20 06/30/20 07/01/20 07/02/20 23:59 23:59 23:59 23:59 Intake Total 1285.25 675.25 Output Total 1205 625 Balance 80.25 50.25 - Objective General Appearance: positive: No acute distress, Alert Peripheral Pulses: 1+ Radial (L) Neurologic/Psychiatric: positive: Sensation nml - Lab Results Fish Bones: 07/02/20 04:35 07/02/20 04:35 Other Labs: Lab Results x24hrs 07/02/20 07/02/20 07/01/20 Range/Units 04:35 04:35 21:35 WBC 13.7 H (4.8-10.8) x10^3/uL RBC 2.64 L (4.20-5.40) 10^6/uL Hgb 8.2 L 9.4 L (12.0-16.0) g/dL Hct 24.9 L 27.6 L (37.0-47.0) % MCV 94.3 (81.0-99.0) fL MCH 31.1 H (27.0-31.0) pg MCHC 32.9 (32.0-36.0) g/dL RDW 14.0 (12.0-15.0) % Plt Count 175 (130-450) 10^3/uL MPV 9.4 (7.9-10.8) fL Neut # (Auto) Not Reportable (1.5-6.6) 10^3/uL Lymph # (Auto) Not Reportable (1.5-3.5) 10^3/uL [place] # (Auto) Not Reportable (0.0-1.0) 10^3/uL Eos # (Auto) Not Reportable (0.0-0.7) 10^3/uL Baso # (Auto) Not Reportable (0.0-0.1) 10^3/uL Absolute Nucleated RBC Not Reportable x10^3/uL Total Counted 100 Band Neuts % (Manual) 3 (0 - 10) % Abnorm Lymph % (Manual) 0 % Nucleated RBC % Not Reportable /100WBC Neutrophils # (Manual) 11.2 H (1.5-6.6) 10^3/uL Lymphocytes # (Manual) 1.4 L (1.5-3.5) 10^3/uL Monocytes # (Manual) 1.1 H (0.0-1.0) 10^3/uL Eosinophils # (Manual) 0.0 (0-0.7) 10^3/uL Basophils # (Manual) 0.0 (0-0.1) 10^3/uL Differential Comment MANUAL DIFFERENTIAL Platelet Estimate NORMAL (130-450,000) (NORMAL) RBC Morph Micro Appear NORMAL APPEARANCE (NORMAL) PT (9.9-12.6) secs INR (0.8-1.2) Sodium 139 (135-145) mmol/L Potassium 4.6 (3.5-5.0) mmol/L Chloride 102 (101-111) mmol/L Carbon Dioxide 25 (21-32) mmol/L Anion Gap 12.0 (6-13) BUN 26 H (6-20) mg/dL Creatinine 1.2 H (0.4-1.0) mg/dL Estimated GFR (MDRD) 43 L (>89) Glucose 140 H (70-100) mg/dL Calcium 7.9 L (8.5-10.3) mg/dL Phosphorus 4.0 (2.5-4.6) mg/dL Magnesium 1.7 (1.7-2.8) mg/dL Total Bilirubin (0.2-1.0) mg/dL AST (10-42) IU/L ALT (10-60) IU/L Alkaline Phosphatase (42-121) IU/L Troponin I High Sens (2.3-14.8) ng/L Total Protein (6.7-8.2) g/dL Albumin (3.2-5.5) g/dL Globulin (2.1-4.2) g/dL Albumin/Globulin Ratio (1.0-2.2) Nasal Screen MRSA (PCR) (NEGATIVE) Blood Type Blood Type Recheck Antibody Screen Antibody Identification Crossmatch 07/01/20 07/01/20 07/01/20 Range/Units 18:00 18:00 18:00 WBC (4.8-10.8) x10^3/uL RBC (4.20-5.40) 10^6/uL Hgb (12.0-16.0) g/dL Hct (37.0-47.0) % MCV (81.0-99.0) fL MCH (27.0-31.0) pg MCHC (32.0-36.0) g/dL RDW (12.0-15.0) % Plt Count (130-450) 10^3/uL MPV (7.9-10.8) fL Neut # (Auto) (1.5-6.6) 10^3/uL Lymph # (Auto) (1.5-3.5) 10^3/uL [place] # (Auto) (0.0-1.0) 10^3/uL Eos # (Auto) (0.0-0.7) 10^3/uL Baso # (Auto) (0.0-0.1) 10^3/uL Absolute Nucleated RBC x10^3/uL Total Counted Band Neuts % (Manual) (0 - 10) % Abnorm Lymph % (Manual) % Nucleated RBC % /100WBC Neutrophils # (Manual) (1.5-6.6) 10^3/uL Lymphocytes # (Manual) (1.5-3.5) 10^3/uL Monocytes # (Manual) (0.0-1.0) 10^3/uL Eosinophils # (Manual) (0-0.7) 10^3/uL Basophils # (Manual) (0-0.1) 10^3/uL Differential Comment Platelet Estimate (NORMAL) RBC Morph Micro Appear (NORMAL) PT 13.6 H (9.9-12.6) secs INR 1.2 (0.8-1.2) Sodium (135-145) mmol/L Potassium (3.5-5.0) mmol/L Chloride (101-111) mmol/L Carbon Dioxide (21-32) mmol/L Anion Gap (6-13) BUN (6-20) mg/dL Creatinine (0.4-1.0) mg/dL Estimated GFR (MDRD) (>89) Glucose (70-100) mg/dL Calcium (8.5-10.3) mg/dL Phosphorus (2.5-4.6) mg/dL Magnesium (1.7-2.8) mg/dL Total Bilirubin (0.2-1.0) mg/dL AST (10-42) IU/L ALT (10-60) IU/L Alkaline Phosphatase (42-121) IU/L Troponin I High Sens 19.7 H* (2.3-14.8) ng/L Total Protein (6.7-8.2) g/dL Albumin (3.2-5.5) g/dL Globulin (2.1-4.2) g/dL Albumin/Globulin Ratio (1.0-2.2) Nasal Screen MRSA (PCR) (NEGATIVE) Blood Type A NEGATIVE Blood Type Recheck Antibody Screen POSITIVE Antibody Identification Anti-D Crossmatch See Detail 07/01/20 07/01/20 07/01/20 Range/Units 18:00 15:06 15:00 WBC 17.0 H (4.8-10.8) x10^3/uL RBC 3.09 L (4.20-5.40) 10^6/uL Hgb 9.7 L (12.0-16.0) g/dL Hct 29.3 L (37.0-47.0) % MCV 94.8 (81.0-99.0) fL MCH 31.4 H (27.0-31.0) pg MCHC 33.1 (32.0-36.0) g/dL RDW 13.9 (12.0-15.0) % Plt Count 195 (130-450) 10^3/uL MPV 9.4 (7.9-10.8) fL Neut # (Auto) 14.9 H (1.5-6.6) 10^3/uL Lymph # (Auto) 0.9 L (1.5-3.5) 10^3/uL [place] # (Auto) 1.0 (0.0-1.0) 10^3/uL Eos # (Auto) 0.1 (0.0-0.7) 10^3/uL Baso # (Auto) 0.1 (0.0-0.1) 10^3/uL Absolute Nucleated RBC 0.00 x10^3/uL Total Counted Band Neuts % (Manual) (0 - 10) % Abnorm Lymph % (Manual) % Nucleated RBC % 0.0 /100WBC Neutrophils # (Manual) (1.5-6.6) 10^3/uL Lymphocytes # (Manual) (1.5-3.5) 10^3/uL Monocytes # (Manual) (0.0-1.0) 10^3/uL Eosinophils # (Manual) (0-0.7) 10^3/uL Basophils # (Manual) (0-0.1) 10^3/uL Differential Comment Platelet Estimate (NORMAL) RBC Morph Micro Appear (NORMAL) PT (9.9-12.6) secs INR (0.8-1.2) Sodium (135-145) mmol/L Potassium (3.5-5.0) mmol/L Chloride (101-111) mmol/L Carbon Dioxide (21-32) mmol/L Anion Gap (6-13) BUN (6-20) mg/dL Creatinine (0.4-1.0) mg/dL Estimated GFR (MDRD) (>89) Glucose (70-100) mg/dL Calcium (8.5-10.3) mg/dL Phosphorus (2.5-4.6) mg/dL Magnesium (1.7-2.8) mg/dL Total Bilirubin (0.2-1.0) mg/dL AST (10-42) IU/L ALT (10-60) IU/L Alkaline Phosphatase (42-121) IU/L Troponin I High Sens 13.8 (2.3-14.8) ng/L Total Protein (6.7-8.2) g/dL Albumin (3.2-5.5) g/dL Globulin (2.1-4.2) g/dL Albumin/Globulin Ratio (1.0-2.2) Nasal Screen MRSA (PCR) NEGATIVE (NEGATIVE) Blood Type Blood Type Recheck Antibody Screen Antibody Identification Crossmatch 07/01/20 07/01/20 07/01/20 Range/Units 13:36 13:36 11:19 WBC 9.5 (4.8-10.8) x10^3/uL RBC 1.76 L (4.20-5.40) 10^6/uL Hgb 5.5 L* (12.0-16.0) g/dL Hct 17.9 L* (37.0-47.0) % MCV 101.7 H (81.0-99.0) fL MCH 31.3 H (27.0-31.0) pg MCHC 30.7 L (32.0-36.0) g/dL RDW 12.5 (12.0-15.0) % Plt Count 184 (130-450) 10^3/uL MPV 9.2 (7.9-10.8) fL Neut # (Auto) 8.4 H (1.5-6.6) 10^3/uL Lymph # (Auto) 0.5 L (1.5-3.5) 10^3/uL [place] # (Auto) 0.5 (0.0-1.0) 10^3/uL Eos # (Auto) 0.0 (0.0-0.7) 10^3/uL Baso # (Auto) 0.0 (0.0-0.1) 10^3/uL Absolute Nucleated RBC 0.00 x10^3/uL Total Counted Band Neuts % (Manual) (0 - 10) % Abnorm Lymph % (Manual) % Nucleated RBC % 0.0 /100WBC Neutrophils # (Manual) (1.5-6.6) 10^3/uL Lymphocytes # (Manual) (1.5-3.5) 10^3/uL Monocytes # (Manual) (0.0-1.0) 10^3/uL Eosinophils # (Manual) (0-0.7) 10^3/uL Basophils # (Manual) (0-0.1) 10^3/uL Differential Comment Platelet Estimate (NORMAL) RBC Morph Micro Appear (NORMAL) PT (9.9-12.6) secs INR (0.8-1.2) Sodium 137 (135-145) mmol/L Potassium 4.5 (3.5-5.0) mmol/L Chloride 105 (101-111) mmol/L Carbon Dioxide 25 (21-32) mmol/L Anion Gap 7.0 (6-13) BUN 20 (6-20) mg/dL Creatinine 1.1 H (0.4-1.0) mg/dL Estimated GFR (MDRD) 48 L (>89) Glucose 161 H (70-100) mg/dL Calcium 7.9 L (8.5-10.3) mg/dL Phosphorus (2.5-4.6) mg/dL Magnesium (1.7-2.8) mg/dL Total Bilirubin 0.4 (0.2-1.0) mg/dL AST 28 (10-42) IU/L ALT 18 (10-60) IU/L Alkaline Phosphatase 41 L (42-121) IU/L Troponin I High Sens (2.3-14.8) ng/L Total Protein 4.4 L (6.7-8.2) g/dL Albumin 2.5 L (3.2-5.5) g/dL Globulin 1.9 L (2.1-4.2) g/dL Albumin/Globulin Ratio 1.3 (1.0-2.2) Nasal Screen MRSA (PCR) (NEGATIVE) Blood Type Blood Type Recheck A NEGATIVE Antibody Screen Antibody Identification Crossmatch 12/02/20 12/02/20 Range/Units 11:06 11:06 WBC (4.8-10.8) x10^3/uL RBC (4.20-5.40) 10^6/uL Hgb 8.7 L (12.0-16.0) g/dL Hct 27.3 L (37.0-47.0) % MCV (81.0-99.0) fL MCH (27.0-31.0) pg MCHC (32.0-36.0) g/dL RDW (12.0-15.0) % Plt Count (130-450) 10^3/uL MPV (7.9-10.8) fL Neut # (Auto) (1.5-6.6) 10^3/uL Lymph # (Auto) (1.5-3.5) 10^3/uL [place] # (Auto) (0.0-1.0) 10^3/uL Eos # (Auto) (0.0-0.7) 10^3/uL Baso # (Auto) (0.0-0.1) 10^3/uL Absolute Nucleated RBC x10^3/uL Total Counted Band Neuts % (Manual) (0 - 10) % Abnorm Lymph % (Manual) % Nucleated RBC % /100WBC Neutrophils # (Manual) (1.5-6.6) 10^3/uL Lymphocytes # (Manual) (1.5-3.5) 10^3/uL Monocytes # (Manual) (0.0-1.0) 10^3/uL Eosinophils # (Manual) (0-0.7) 10^3/uL Basophils # (Manual) (0-0.1) 10^3/uL Differential Comment Platelet Estimate (NORMAL) RBC Morph Micro Appear (NORMAL) PT (9.9-12.6) secs INR (0.8-1.2) Sodium (135-145) mmol/L Potassium (3.5-5.0) mmol/L Chloride (101-111) mmol/L Carbon Dioxide (21-32) mmol/L Anion Gap (6-13) BUN (6-20) mg/dL Creatinine (0.4-1.0) mg/dL Estimated GFR (MDRD) (>89) Glucose (70-100) mg/dL Calcium (8.5-10.3) mg/dL Phosphorus (2.5-4.6) mg/dL Magnesium (1.7-2.8) mg/dL Total Bilirubin (0.2-1.0) mg/dL AST (10-42) IU/L ALT (10-60) IU/L Alkaline Phosphatase (42-121) IU/L Troponin I High Sens (2.3-14.8) ng/L Total Protein (6.7-8.2) g/dL Albumin (3.2-5.5) g/dL Globulin (2.1-4.2) g/dL Albumin/Globulin Ratio (1.0-2.2) Nasal Screen MRSA (PCR) (NEGATIVE) Blood Type A NEGATIVE Blood Type Recheck Antibody Screen POSITIVE Antibody Identification Anti-D Crossmatch See Detail Assessment/Plan - Problem List (1) Osteoarthritis Impression: Continue under Hospitalist plan for postoperative hemorrhagic shock: No sign of active bleeding status post repair of axillary artery branch.In agreement with current management of observation transfuse as necessary to keep hemoglobin at least 7.0 with serial pulse checks. After stabilization of postoperative hemorrhagic shock we will continue with previously ordered postoperative shoulder arthroplasty PT OT plan to include gentle active assisted ROM and passive ROM with no excessive external rotation of affected limb greater than 30 degrees. Dressing changes performed by orthopedic provider Qualifiers: Osteoarthritis location: shoulder Osteoarthritis type: primary Laterality: left Qualified Code(s): M19.012 - Primary osteoarthritis, left shoulder (2) Postoperative hemorrhagic shock Qualifiers: Encounter type: subsequent encounter Qualified Code(s): T81.19XD - Other postprocedural shock, subsequent encounter
--- NOTE | 2020-07-02 08:11 | PROVIDER PROGRESS NOTE ---
Subjective - General Admit Date: 07/01/20 Procedure Date: 07/01/20 Post Op Days: 1 Procedure Performed: Direct repair of left axillary artery - Review of Systems Wound/Incisions: positive: Dressing dry and intact, No drainage General: positive: No symptoms Musculoskeletal: positive: Shoulder pain (minimal), Other (no numbness, tingling or weakness in left arm or hand). negative: Arm pain Objective - Patient Data Reviewed Vital Signs: Yes Vital Signs: Vital Signs x48h Temp Pulse Resp BP Pulse Ox 07/02/20 07:00 72 20 105/57 L 92 07/02/20 06:49 83 81/49 L 07/02/20 06:30 90 15 92/56 L 95 07/02/20 06:20 84 19 80/54 L 93 07/02/20 06:10 84 18 84/53 L 94 07/02/20 06:08 91 107/77 07/02/20 06:00 112 H 89/54 L 07/02/20 05:55 97 92/59 L 07/02/20 05:15 70 18 106/56 L 97 07/02/20 05:00 75 17 112/55 L 98 07/02/20 04:50 73 19 105/63 98 07/02/20 04:40 86 97/61 07/02/20 04:33 76 112/64 07/02/20 04:28 82 19 96/57 L 98 07/02/20 04:00 70 17 134/67 H 98 07/02/20 03:23 36.0 C L 07/02/20 03:00 68 20 140/64 H 98 07/02/20 02:00 70 16 132/63 H 93 07/02/20 01:00 75 15 130/68 93 Weight: Weight 06/30/20 07/01/20 07/02/20 23:59 23:59 23:59 Weight (kg) 68 kg 72 kg Intake & Output: Intake and Output Totals x24h 06/30/20 07/01/20 07/02/20 23:59 23:59 23:59 Intake Total 1285.25 675.25 Output Total 1205 625 Balance 80.25 50.25 - Lab Results Lab Results: 07/02/20 04:35 07/02/20 04:35 Other Lab Results: Lab Results x24hrs 07/02/20 07/02/20 07/01/20 Range/Units 04:35 04:35 21:35 WBC 13.7 H (4.8-10.8) x10^3/uL RBC 2.64 L (4.20-5.40) 10^6/uL Hgb 8.2 L 9.4 L (12.0-16.0) g/dL Hct 24.9 L 27.6 L (37.0-47.0) % MCV 94.3 (81.0-99.0) fL MCH 31.1 H (27.0-31.0) pg MCHC 32.9 (32.0-36.0) g/dL RDW 14.0 (12.0-15.0) % Plt Count 175 (130-450) 10^3/uL MPV 9.4 (7.9-10.8) fL Neut # (Auto) Not Reportable (1.5-6.6) 10^3/uL Lymph # (Auto) Not Reportable (1.5-3.5) 10^3/uL Mcculloch # (Auto) Not Reportable (0.0-1.0) 10^3/uL Eos # (Auto) Not Reportable (0.0-0.7) 10^3/uL Baso # (Auto) Not Reportable (0.0-0.1) 10^3/uL Absolute Nucleated RBC Not Reportable x10^3/uL Total Counted 100 Band Neuts % (Manual) 3 (0 - 10) % Abnorm Lymph % (Manual) 0 % Nucleated RBC % Not Reportable /100WBC Neutrophils # (Manual) 11.2 H (1.5-6.6) 10^3/uL Lymphocytes # (Manual) 1.4 L (1.5-3.5) 10^3/uL Monocytes # (Manual) 1.1 H (0.0-1.0) 10^3/uL Eosinophils # (Manual) 0.0 (0-0.7) 10^3/uL Basophils # (Manual) 0.0 (0-0.1) 10^3/uL Differential Comment MANUAL DIFFERENTIAL Platelet Estimate NORMAL (130-450,000) (NORMAL) RBC Morph Micro Appear NORMAL APPEARANCE (NORMAL) PT (9.9-12.6) secs INR (0.8-1.2) Sodium 139 (135-145) mmol/L Potassium 4.6 (3.5-5.0) mmol/L Chloride 102 (101-111) mmol/L Carbon Dioxide 25 (21-32) mmol/L Anion Gap 12.0 (6-13) BUN 26 H (6-20) mg/dL Creatinine 1.2 H (0.4-1.0) mg/dL Estimated GFR (MDRD) 43 L (>89) Glucose 140 H (70-100) mg/dL Calcium 7.9 L (8.5-10.3) mg/dL Phosphorus 4.0 (2.5-4.6) mg/dL Magnesium 1.7 (1.7-2.8) mg/dL Total Bilirubin (0.2-1.0) mg/dL AST (10-42) IU/L ALT (10-60) IU/L Alkaline Phosphatase (42-121) IU/L Troponin I High Sens (2.3-14.8) ng/L Total Protein (6.7-8.2) g/dL Albumin (3.2-5.5) g/dL Globulin (2.1-4.2) g/dL Albumin/Globulin Ratio (1.0-2.2) Nasal Screen MRSA (PCR) (NEGATIVE) Blood Type Blood Type Recheck Antibody Screen Antibody Identification Crossmatch 07/01/20 07/01/20 07/01/20 Range/Units 18:00 18:00 18:00 WBC (4.8-10.8) x10^3/uL RBC (4.20-5.40) 10^6/uL Hgb (12.0-16.0) g/dL Hct (37.0-47.0) % MCV (81.0-99.0) fL MCH (27.0-31.0) pg MCHC (32.0-36.0) g/dL RDW (12.0-15.0) % Plt Count (130-450) 10^3/uL MPV (7.9-10.8) fL Neut # (Auto) (1.5-6.6) 10^3/uL Lymph # (Auto) (1.5-3.5) 10^3/uL Mcculloch # (Auto) (0.0-1.0) 10^3/uL Eos # (Auto) (0.0-0.7) 10^3/uL Baso # (Auto) (0.0-0.1) 10^3/uL Absolute Nucleated RBC x10^3/uL Total Counted Band Neuts % (Manual) (0 - 10) % Abnorm Lymph % (Manual) % Nucleated RBC % /100WBC Neutrophils # (Manual) (1.5-6.6) 10^3/uL Lymphocytes # (Manual) (1.5-3.5) 10^3/uL Monocytes # (Manual) (0.0-1.0) 10^3/uL Eosinophils # (Manual) (0-0.7) 10^3/uL Basophils # (Manual) (0-0.1) 10^3/uL Differential Comment Platelet Estimate (NORMAL) RBC Morph Micro Appear (NORMAL) PT 13.6 H (9.9-12.6) secs INR 1.2 (0.8-1.2) Sodium (135-145) mmol/L Potassium (3.5-5.0) mmol/L Chloride (101-111) mmol/L Carbon Dioxide (21-32) mmol/L Anion Gap (6-13) BUN (6-20) mg/dL Creatinine (0.4-1.0) mg/dL Estimated GFR (MDRD) (>89) Glucose (70-100) mg/dL Calcium (8.5-10.3) mg/dL Phosphorus (2.5-4.6) mg/dL Magnesium (1.7-2.8) mg/dL Total Bilirubin (0.2-1.0) mg/dL AST (10-42) IU/L ALT (10-60) IU/L Alkaline Phosphatase (42-121) IU/L Troponin I High Sens 19.7 H* (2.3-14.8) ng/L Total Protein (6.7-8.2) g/dL Albumin (3.2-5.5) g/dL Globulin (2.1-4.2) g/dL Albumin/Globulin Ratio (1.0-2.2) Nasal Screen MRSA (PCR) (NEGATIVE) Blood Type A NEGATIVE Blood Type Recheck Antibody Screen POSITIVE Antibody Identification Anti-D Crossmatch See Detail 07/01/20 07/01/20 07/01/20 Range/Units 18:00 15:06 15:00 WBC 17.0 H (4.8-10.8) x10^3/uL RBC 3.09 L (4.20-5.40) 10^6/uL Hgb 9.7 L (12.0-16.0) g/dL Hct 29.3 L (37.0-47.0) % MCV 94.8 (81.0-99.0) fL MCH 31.4 H (27.0-31.0) pg MCHC 33.1 (32.0-36.0) g/dL RDW 13.9 (12.0-15.0) % Plt Count 195 (130-450) 10^3/uL MPV 9.4 (7.9-10.8) fL Neut # (Auto) 14.9 H (1.5-6.6) 10^3/uL Lymph # (Auto) 0.9 L (1.5-3.5) 10^3/uL Mcculloch # (Auto) 1.0 (0.0-1.0) 10^3/uL Eos # (Auto) 0.1 (0.0-0.7) 10^3/uL Baso # (Auto) 0.1 (0.0-0.1) 10^3/uL Absolute Nucleated RBC 0.00 x10^3/uL Total Counted Band Neuts % (Manual) (0 - 10) % Abnorm Lymph % (Manual) % Nucleated RBC % 0.0 /100WBC Neutrophils # (Manual) (1.5-6.6) 10^3/uL Lymphocytes # (Manual) (1.5-3.5) 10^3/uL Monocytes # (Manual) (0.0-1.0) 10^3/uL Eosinophils # (Manual) (0-0.7) 10^3/uL Basophils # (Manual) (0-0.1) 10^3/uL Differential Comment Platelet Estimate (NORMAL) RBC Morph Micro Appear (NORMAL) PT (9.9-12.6) secs INR (0.8-1.2) Sodium (135-145) mmol/L Potassium (3.5-5.0) mmol/L Chloride (101-111) mmol/L Carbon Dioxide (21-32) mmol/L Anion Gap (6-13) BUN (6-20) mg/dL Creatinine (0.4-1.0) mg/dL Estimated GFR (MDRD) (>89) Glucose (70-100) mg/dL Calcium (8.5-10.3) mg/dL Phosphorus (2.5-4.6) mg/dL Magnesium (1.7-2.8) mg/dL Total Bilirubin (0.2-1.0) mg/dL AST (10-42) IU/L ALT (10-60) IU/L Alkaline Phosphatase (42-121) IU/L Troponin I High Sens 13.8 (2.3-14.8) ng/L Total Protein (6.7-8.2) g/dL Albumin (3.2-5.5) g/dL Globulin (2.1-4.2) g/dL Albumin/Globulin Ratio (1.0-2.2) Nasal Screen MRSA (PCR) NEGATIVE (NEGATIVE) Blood Type Blood Type Recheck Antibody Screen Antibody Identification Crossmatch 07/01/20 07/01/20 07/01/20 Range/Units 13:36 13:36 11:19 WBC 9.5 (4.8-10.8) x10^3/uL RBC 1.76 L (4.20-5.40) 10^6/uL Hgb 5.5 L* (12.0-16.0) g/dL Hct 17.9 L* (37.0-47.0) % MCV 101.7 H (81.0-99.0) fL MCH 31.3 H (27.0-31.0) pg MCHC 30.7 L (32.0-36.0) g/dL RDW 12.5 (12.0-15.0) % Plt Count 184 (130-450) 10^3/uL MPV 9.2 (7.9-10.8) fL Neut # (Auto) 8.4 H (1.5-6.6) 10^3/uL Lymph # (Auto) 0.5 L (1.5-3.5) 10^3/uL Mcculloch # (Auto) 0.5 (0.0-1.0) 10^3/uL Eos # (Auto) 0.0 (0.0-0.7) 10^3/uL Baso # (Auto) 0.0 (0.0-0.1) 10^3/uL Absolute Nucleated RBC 0.00 x10^3/uL Total Counted Band Neuts % (Manual) (0 - 10) % Abnorm Lymph % (Manual) % Nucleated RBC % 0.0 /100WBC Neutrophils # (Manual) (1.5-6.6) 10^3/uL Lymphocytes # (Manual) (1.5-3.5) 10^3/uL Monocytes # (Manual) (0.0-1.0) 10^3/uL Eosinophils # (Manual) (0-0.7) 10^3/uL Basophils # (Manual) (0-0.1) 10^3/uL Differential Comment Platelet Estimate (NORMAL) RBC Morph Micro Appear (NORMAL) PT (9.9-12.6) secs INR (0.8-1.2) Sodium 137 (135-145) mmol/L Potassium 4.5 (3.5-5.0) mmol/L Chloride 105 (101-111) mmol/L Carbon Dioxide 25 (21-32) mmol/L Anion Gap 7.0 (6-13) BUN 20 (6-20) mg/dL Creatinine 1.1 H (0.4-1.0) mg/dL Estimated GFR (MDRD) 48 L (>89) Glucose 161 H (70-100) mg/dL Calcium 7.9 L (8.5-10.3) mg/dL Phosphorus (2.5-4.6) mg/dL Magnesium (1.7-2.8) mg/dL Total Bilirubin 0.4 (0.2-1.0) mg/dL AST 28 (10-42) IU/L ALT 18 (10-60) IU/L Alkaline Phosphatase 41 L (42-121) IU/L Troponin I High Sens (2.3-14.8) ng/L Total Protein 4.4 L (6.7-8.2) g/dL Albumin 2.5 L (3.2-5.5) g/dL Globulin 1.9 L (2.1-4.2) g/dL Albumin/Globulin Ratio 1.3 (1.0-2.2) Nasal Screen MRSA (PCR) (NEGATIVE) Blood Type Blood Type Recheck A NEGATIVE Antibody Screen Antibody Identification Crossmatch 07/01/20 07/01/20 Range/Units 11:06 11:06 WBC (4.8-10.8) x10^3/uL RBC (4.20-5.40) 10^6/uL Hgb 8.7 L (12.0-16.0) g/dL Hct 27.3 L (37.0-47.0) % MCV (81.0-99.0) fL MCH (27.0-31.0) pg MCHC (32.0-36.0) g/dL RDW (12.0-15.0) % Plt Count (130-450) 10^3/uL MPV (7.9-10.8) fL Neut # (Auto) (1.5-6.6) 10^3/uL Lymph # (Auto) (1.5-3.5) 10^3/uL Mcculloch # (Auto) (0.0-1.0) 10^3/uL Eos # (Auto) (0.0-0.7) 10^3/uL Baso # (Auto) (0.0-0.1) 10^3/uL Absolute Nucleated RBC x10^3/uL Total Counted Band Neuts % (Manual) (0 - 10) % Abnorm Lymph % (Manual) % Nucleated RBC % /100WBC Neutrophils # (Manual) (1.5-6.6) 10^3/uL Lymphocytes # (Manual) (1.5-3.5) 10^3/uL Monocytes # (Manual) (0.0-1.0) 10^3/uL Eosinophils # (Manual) (0-0.7) 10^3/uL Basophils # (Manual) (0-0.1) 10^3/uL Differential Comment Platelet Estimate (NORMAL) RBC Morph Micro Appear (NORMAL) PT (9.9-12.6) secs INR (0.8-1.2) Sodium (135-145) mmol/L Potassium (3.5-5.0) mmol/L Chloride (101-111) mmol/L Carbon Dioxide (21-32) mmol/L Anion Gap (6-13) BUN (6-20) mg/dL Creatinine (0.4-1.0) mg/dL Estimated GFR (MDRD) (>89) Glucose (70-100) mg/dL Calcium (8.5-10.3) mg/dL Phosphorus (2.5-4.6) mg/dL Magnesium (1.7-2.8) mg/dL Total Bilirubin (0.2-1.0) mg/dL AST (10-42) IU/L ALT (10-60) IU/L Alkaline Phosphatase (42-121) IU/L Troponin I High Sens (2.3-14.8) ng/L Total Protein (6.7-8.2) g/dL Albumin (3.2-5.5) g/dL Globulin (2.1-4.2) g/dL Albumin/Globulin Ratio (1.0-2.2) Nasal Screen MRSA (PCR) (NEGATIVE) Blood Type A NEGATIVE Blood Type Recheck Antibody Screen POSITIVE Antibody Identification Anti-D Crossmatch See Detail - Current Medications Current Medications: Current Medications Generic Name Dose Route Start Last Admin Trade Name Zionq PRN Reason Stop Dose Admin Acetaminophen 1,000 mg 07/01/20 18:00 07/02/20 05:47 Acetaminophen 500 Mg Tablet PO 1,000 mg Q6HR KELSEY Administration Alcohol 1 amp 07/01/20 21:00 07/01/20 20:08 Ethyl Alcohol 62% Swab Ampule DOMINGO Not Given BID KELSEY Famotidine 20 mg 07/01/20 21:00 07/01/20 21:09 Famotidine 20 Mg Tablet PO Not Given BID KELSEY Norepinephrine Bitartrate 8 mg 250 mls @ 15 mls/hr 07/01/20 15:00 07/02/20 06:46 / Dextrose IV 4 mcg/min .[id number] KELSEY 7.5 mls/hr Titration Protocol 8 MCG/MIN Sodium Chloride 1,000 mls @ 100 mls/hr 07/01/20 23:00 07/01/20 22:24 Normal Saline 0.9% IV 100 mls/hr .Q10H KELSEY Administration Sodium Chloride 10 ml 07/01/20 17:00 07/02/20 00:21 Sodium Chloride Flush 0.9% 10 Ml Syringe IVP 10 ml [id number] KELSEY Administration - Physical Exam Wound/Incisions: positive: Dressing dry and intact, No drainage, Other (mild/mod ecchymosis and soft tissue swelling/expected/stable; no obvious significant hematoma present.) General Appearance: positive: No acute distress, Alert Skin: positive: Color nml (pale), Warm, Dry. negative: Cyanosis Extremities: positive: Other (both hands mildly swollen, left hand slightly more than right, left hand warm, nl cap fill, 2+ radial pulse, nl sensation and motor function.) Neurologic/Psychiatric: positive: Oriented x3, Motor nml (LUE), Sensation nml (LUE), Mood/affect nml Impression/Plan - Problem List Problem List: Doing well POD #1 s/p repair of left axillary artery. 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 There is no evidence of neurovascular compromise at this time. Recommend continue post op care as planned. No contraindications to usual postoperative recovery plans and rehabilitation.
[2020-07-02] MEDS: SODIUM CHLORIDE 0.9% 1,000 ML IV SCH ×2 (08:30→15:05)
[2020-07-02] MEDS: FAMOTIDINE 20 MG TABLET PO SCH ×2 (08:58→20:44)
[2020-07-02] MEDS: CITALOPRAM 10 MG TABLET PO SCH (08:58)
[2020-07-02] MEDS: ethyl alcohoL 62% SWAB AMPULE NAS SCH ×2 (08:59→20:44)
[2020-07-02] MEDS: ACETAMINOPHEN 500 MG TABLET PO PRN ×2 (11:26→17:30)
[2020-07-02 11:31] LABS: HGB - HEMOGLOBIN 10.1 g/dL (12.0-16.0)
--- NOTE | 2020-07-02 13:18 | PROVIDER PROGRESS NOTE ---
Assessment/Plan - Problem List (1) Postoperative hemorrhagic shock Qualifiers: Encounter type: subsequent encounter Qualified Code(s): T81.19XD - Other postprocedural shock, subsequent encounter Assessment/Plan: The bandages are dry, there has been no further hemorrhage. Appreciate the input from general surgery and also orthopedic surgery today. The troponin values did not indicate any SD, following the shock. Today her blood pressure is better after colloid and crystalloid infusions plus PRBC transfusions. She still now requires a small dose of Levophed. We will slowly wean the Levophed down over the next 24 hours. Continue to follow the CBC every 6 to 12 hours, transfuse if needed, if hemoglobin goes under 7 or if it goes under 8 with symptoms. Hopefully transfer out of ICU tomorrow, then rehab as per Orthopedics. (2) Anemia Assessment/Plan: Following hemoglobin and hematocrit every 6-12 hours, transfuse again if needed (3) History of arthroplasty of left shoulder Assessment/Plan: Minimal movement is planned today. Tomorrow her dose of aspirin twice daily can be resumed, 48 hours after the hemorrhage (4) Cardiomyopathy Assessment/Plan: The patient was able to give me PMH today and said that her preop clearance was done by her residential treatment counselor Dr. Guzman in [place] and she had an Echo and she was told she had low risk to undergo orthopedic surgery. Will obtain Echo since we have none done here for approximately 8 months, when the last EF was 45%. We will decrease her IV rate of saline from 100 down to 50 cc/h. We will start resuming her carvedilol and her losartan hopefully tomorrow, both at lower doses than prehospitalization. (5) MELISSA (acute kidney injury) Assessment/Plan: Patient was found to have elevated creatinine immediately after the hemorrhage in the OR. She still has a slightly elevated creatinine today. Continue with very gentle IV rehydration. If this is ATN from shock, it should resolve in the next 1 to 2 days. (6) Paroxysmal A-fib Assessment/Plan: She describes that she can sense when she goes into her A. fib and gets palpitations. She is mostly in normal sinus rhythm here. She was on Xarelto for this diagnosis, for stroke prophylaxis. The Xarelto is off currently because of the hemorrhage. When her anticoagulant can be started will be determined by how long her antiplatelet agent is planned from orthopedics. (7) Depression Assessment/Plan: We resumed her Celexa last night. We will resume the Abilify at night this evening. - Current Meds Current Meds: Current Medications Generic Name Dose Route Start Last Admin Trade Name Freq PRN Reason Stop Dose Admin Acetaminophen 1,000 mg 07/02/20 10:58 07/02/20 11:26 Acetaminophen 500 Mg Tablet PO 1,000 mg Q6HR PRN Administration Pain or Fever > 38C (100.4F) Alcohol 1 amp 07/01/20 21:00 07/02/20 08:59 Ethyl Alcohol 62% Swab Ampule DOMINGO 1 amp BID KELSEY Administration Citalopram Hydrobromide 20 mg 07/02/20 09:00 07/02/20 08:58 Citalopram 10 Mg Tablet PO 20 mg DAILY KELSEY Administration Famotidine 20 mg 07/01/20 21:00 07/02/20 08:58 Famotidine 20 Mg Tablet PO 20 mg BID KELSEY Administration Norepinephrine Bitartrate 8 mg 250 mls @ 15 mls/hr 07/01/20 15:00 07/02/20 13:00 / Dextrose IV 6 mcg/min .[id number] KELSEY 11.25 mls/hr Titration Protocol 8 MCG/MIN Sodium Chloride 1,000 mls @ 100 mls/hr 07/01/20 23:00 07/02/20 13:00 Normal Saline 0.9% IV 100 mls/hr .Q10H KELSEY Infusion Sodium Chloride 10 ml 07/01/20 17:00 07/02/20 09:09 Sodium Chloride Flush 0.9% 10 Ml Syringe IVP 10 ml 0100,0900,1700 KELSEY Administration - Lab Result Fish Bone Diagrams: 07/02/20 12:00 07/02/20 04:35 - Additional Planning My Orders: My Active Orders 07/01/20 14:32 Daily Weight [RC] 0600 Mejia Insertion [RC] QSHIFT IO [RC] Q1HR Initiate ICU Electrolyte Prot. [RC] .protocol Turn and Reposition [RC] PRN Turn, Cough and Deep Breathe [RC] Q4HR Vital Signs [RC] Q1HR Condition of Patient [OTHERS] Routine 07/01/20 14:36 Telemetry- [RC] Q4HR 07/01/20 14:37 Oxygen Therapy [RC] .PRN 07/01/20 15:00 Dextrose 5% [D5w] 242 ml NORepinephrine [Levophed] 8 mg IV 8 mcg/min 07/01/20 18:40 Nitroglycerin [Nitrostat] 0.4 mg SL Q5MIN PRN 07/01/20 19:04 LORazepam [Ativan] 0.5 mg PO QPM PRN 07/01/20 20:26 Miscellaenous Nursing Order [RC] Q4H 07/01/20 21:00 Famotidine [Pepcid] 20 mg PO BID 07/01/20 23:00 Sodium Chloride 0.9% [Normal Saline 0.9%] 1,000 ml IV 100 mls/hr 07/02/20 09:00 Citalopram [CeleXA] 20 mg PO DAILY 07/02/20 14:00 Triamcinolone 0.1% Cream [Kenalog 0.1% Cream] 1 applic TOP TID 07/02/20 17:00 CBC - COMP BLD CT W/AUTO DIFF [HEME] Q12H 07/03/20 05:00 CBC - COMP BLD CT W/AUTO DIFF [HEME] Q12H 07/03/20 09:00 Aspirin EC [Ecotrin] 81 mg PO BID 07/03/20 17:00 CBC - COMP BLD CT W/AUTO DIFF [HEME] Q12H 07/04/20 05:00 CBC - COMP BLD CT W/AUTO DIFF [HEME] Q12H 07/04/20 17:00 CBC - COMP BLD CT W/AUTO DIFF [HEME] Q12H Subjective - Subjective Patient Reports: Feeling Better, Resting Comfortably, No Complaints Objective Vital Signs: Vital Signs - 24 hr 07/01/20 07/01/20 07/01/20 13:20 13:25 13:30 Temperature Heart Rate 84 86 86 Heart Rate [ Monitoring electrodes] Respiratory 21 17 17 Rate Blood Pressure 76/49 L 68/48 L 68/46 L Blood Pressure [Right Brachial artery] O2 Saturation 100 100 100 07/01/20 07/01/20 07/01/20 13:35 13:40 13:45 Temperature Heart Rate 88 83 75 Heart Rate [ Monitoring electrodes] Respiratory 21 13 19 Rate Blood Pressure 64/43 L 79/45 L 74/46 L Blood Pressure [Right Brachial artery] O2 Saturation 98 100 100 07/01/20 07/01/20 07/01/20 13:50 13:55 14:00 Temperature Heart Rate 83 93 92 Heart Rate [ Monitoring electrodes] Respiratory 17 22 13 Rate Blood Pressure 52/40 L 58/45 L 59/45 L Blood Pressure [Right Brachial artery] O2 Saturation 100 100 100 07/01/20 07/01/20 07/01/20 14:05 14:10 14:15 Temperature 36.1 C L Heart Rate 88 91 86 Heart Rate [ Monitoring electrodes] Respiratory 19 22 13 Rate Blood Pressure 59/45 L 48/45 L 67/46 L Blood Pressure [Right Brachial artery] O2 Saturation 100 100 100 07/01/20 07/01/20 07/01/20 14:20 14:25 14:30 Temperature 36.1 C L Heart Rate 88 87 84 Heart Rate [ Monitoring electrodes] Respiratory 18 11 L 13 Rate Blood Pressure 67/45 L 65/47 L 68/48 L Blood Pressure [Right Brachial artery] O2 Saturation 99 94 100 07/01/20 07/01/20 07/01/20 14:45 15:30 15:40 Temperature 36.2 C L 36.5 C 36.6 C Heart Rate 91 87 Heart Rate [ 95 Monitoring electrodes] Respiratory 18 24 14 Rate Blood Pressure 70/50 L 72/55 L Blood Pressure 70/50 L [Right Brachial artery] O2 Saturation 100 07/01/20 07/01/20 07/01/20 15:53 16:00 16:24 Temperature 36.6 C 36.6 C Heart Rate 82 88 Heart Rate [ 83 Monitoring electrodes] Respiratory 22 21 18 Rate Blood Pressure 71/50 L 70/53 L Blood Pressure 64/52 L [Right Brachial artery] O2 Saturation 100 07/01/20 07/01/20 07/01/20 17:12 17:30 18:00 Temperature 36.6 C Heart Rate 85 Heart Rate [ 52 L 88 Monitoring electrodes] Respiratory 16 16 22 Rate Blood Pressure Blood Pressure 145/77 H 143/104 H [Right Brachial artery] O2 Saturation 100 99 100 07/01/20 07/01/20 07/01/20 19:00 20:00 21:00 Temperature Heart Rate Heart Rate [ 76 82 75 Monitoring electrodes] Respiratory 20 23 22 Rate Blood Pressure Blood Pressure 145/78 H 127/79 113/73 [Right Brachial artery] O2 Saturation 100 93 93 12/02/20 12/02/20 12/03/20 22:00 23:00 00:00 Temperature Heart Rate Heart Rate [ 79 74 81 Monitoring electrodes] Respiratory 20 23 19 Rate Blood Pressure Blood Pressure 127/95 H 134/78 H 123/74 [Right Brachial artery] O2 Saturation 94 92 94 07/02/20 07/02/20 07/02/20 01:00 02:00 03:00 Temperature Heart Rate Heart Rate [ 75 70 68 Monitoring electrodes] Respiratory 15 16 20 Rate Blood Pressure Blood Pressure 130/68 132/63 H 140/64 H [Right Brachial artery] O2 Saturation 93 93 98 07/02/20 07/02/20 07/02/20 03:23 04:00 04:28 Temperature 36.0 C L Heart Rate Heart Rate [ 70 82 Monitoring electrodes] Respiratory 17 19 Rate Blood Pressure Blood Pressure 134/67 H 96/57 L [Right Brachial artery] O2 Saturation 98 98 07/02/20 07/02/20 07/02/20 04:33 04:40 04:50 Temperature Heart Rate Heart Rate [ 76 86 73 Monitoring electrodes] Respiratory 19 Rate Blood Pressure Blood Pressure 112/64 97/61 105/63 [Right Brachial artery] O2 Saturation 98 07/02/20 07/02/20 07/02/20 05:00 05:15 05:55 Temperature Heart Rate Heart Rate [ 75 70 97 Monitoring electrodes] Respiratory 17 18 Rate Blood Pressure Blood Pressure 112/55 L 106/56 L 92/59 L [Right Brachial artery] O2 Saturation 98 97 07/02/20 07/02/20 07/02/20 06:00 06:08 06:10 Temperature Heart Rate Heart Rate [ 112 H 91 84 Monitoring electrodes] Respiratory 18 Rate Blood Pressure Blood Pressure 89/54 L 107/77 84/53 L [Right Brachial artery] O2 Saturation 94 07/02/20 07/02/20 07/02/20 06:20 06:30 06:49 Temperature Heart Rate Heart Rate [ 84 90 83 Monitoring electrodes] Respiratory 19 15 Rate Blood Pressure Blood Pressure 80/54 L 92/56 L 81/49 L [Right Brachial artery] O2 Saturation 93 95 07/02/20 07/02/20 07/02/20 07:00 08:00 09:00 Temperature Heart Rate Heart Rate [ 72 100 90 Monitoring electrodes] Respiratory 20 18 22 Rate Blood Pressure Blood Pressure 105/57 L 79/51 L 94/50 L [Right Brachial artery] O2 Saturation 92 97 95 07/02/20 07/02/20 07/02/20 10:00 11:00 12:00 Temperature Heart Rate Heart Rate [ 82 95 100 Monitoring electrodes] Respiratory 19 16 23 Rate Blood Pressure Blood Pressure 110/56 L 98/54 L 102/71 [Right Brachial artery] O2 Saturation 95 98 95 Oxygen O2 Source Room air I&O (Last 24 Hrs): Intake and Output Totals x24h 06/30/20 07/01/20 07/02/20 23:59 23:59 23:59 Intake Total 1285.25 2426.688 Output Total 1205 1540 Balance 80.25 886.688 General: Alert, Oriented x3 HEENT: Atraumatic, EOMI, Mucous membr. moist/pink Neck: Supple, No JVD Neuro: Alert, Non Focal Cardiovascular: Regular rate, Other (1-2/6 syst murmur) Respiratory: No respiratory distress, Breath sounds nml Abdomen: Normal bowel sounds, Soft Extremities: No edema, Other (L arm in sling and L shoulder bandaged) - Results Results: Laboratory Results WBC 13.7 x10^3/uL (4.8-10.8) H 07/02/20 04:35 RBC 2.64 10^6/uL (4.20-5.40) L 07/02/20 04:35 Hgb 10.1 g/dL (12.0-16.0) L 07/02/20 12:00 Hct 30.1 % (37.0-47.0) L 07/02/20 12:00 MCV 94.3 fL (81.0-99.0) 07/02/20 04:35 MCH 31.1 pg (27.0-31.0) H 07/02/20 04:35 MCHC 32.9 g/dL (32.0-36.0) 07/02/20 04:35 RDW 14.0 % (12.0-15.0) 07/02/20 04:35 Plt Count 175 10^3/uL (130-450) 07/02/20 04:35 MPV 9.4 fL (7.9-10.8) 07/02/20 04:35 Neut # (Auto) Not Reportable 07/02/20 04:35 Lymph # (Auto) Not Reportable 07/02/20 04:35 Charles # (Auto) Not Reportable 07/02/20 04:35 Eos # (Auto) Not Reportable 07/02/20 04:35 Baso # (Auto) Not Reportable 07/02/20 04:35 Absolute Nucleated RBC Not Reportable 07/02/20 04:35 Total Counted 100 07/02/20 04:35 Band Neuts % (Manual) 3 % (0-10) 07/02/20 04:35 Abnorm Lymph % (Manual) 0 % 07/02/20 04:35 Nucleated RBC % Not Reportable 07/02/20 04:35 Neutrophils # (Manual) 11.2 10^3/uL (1.5-6.6) H 07/02/20 04:35 Lymphocytes # (Manual) 1.4 10^3/uL (1.5-3.5) L 07/02/20 04:35 Monocytes # (Manual) 1.1 10^3/uL (0.0-1.0) H 07/02/20 04:35 Eosinophils # (Manual) 0.0 10^3/uL (0-0.7) 07/02/20 04:35 Basophils # (Manual) 0.0 10^3/uL (0-0.1) 07/02/20 04:35 Differential Comment MANUAL DIFFERENTIAL 07/02/20 04:35 Platelet Estimate NORMAL (130-450,000) (NORMAL) 07/02/20 04:35 RBC Morph Micro Appear NORMAL APPEARANCE (NORMAL) 07/02/20 04:35 PT 13.6 secs (9.9-12.6) H 07/01/20 18:00 INR 1.2 (0.8-1.2) 07/01/20 18:00 Sodium 139 mmol/L (135-145) 07/02/20 04:35 Potassium 4.6 mmol/L (3.5-5.0) 07/02/20 04:35 Chloride 102 mmol/L (101-111) 07/02/20 04:35 Carbon Dioxide 25 mmol/L (21-32) 07/02/20 04:35 Anion Gap 12.0 (6-13) 07/02/20 04:35 BUN 26 mg/dL (6-20) H 07/02/20 04:35 Creatinine 1.2 mg/dL (0.4-1.0) H 07/02/20 04:35 Estimated GFR (MDRD) 43 (>89) L 07/02/20 04:35 Glucose 140 mg/dL (70-100) H 07/02/20 04:35 Calcium 7.9 mg/dL (8.5-10.3) L 07/02/20 04:35 Phosphorus 4.0 mg/dL (2.5-4.6) 07/02/20 04:35 Magnesium 1.7 mg/dL (1.7-2.8) 07/02/20 04:35 Total Bilirubin 0.4 mg/dL (0.2-1.0) 07/01/20 13:36 AST 28 IU/L (10-42) 07/01/20 13:36 ALT 18 IU/L (10-60) 07/01/20 13:36 Alkaline Phosphatase 41 IU/L (42-121) L 07/01/20 13:36 Troponin I High Sens 19.7 ng/L (2.3-14.8) H* 07/01/20 18:00 Total Protein 4.4 g/dL (6.7-8.2) L 07/01/20 13:36 Albumin 2.5 g/dL (3.2-5.5) L 07/01/20 13:36 Globulin 1.9 g/dL (2.1-4.2) L 07/01/20 13:36 Albumin/Globulin Ratio 1.3 (1.0-2.2) 07/01/20 13:36 Nasal Screen MRSA (PCR) NEGATIVE (NEGATIVE) 07/01/20 15:00 Blood Type A NEGATIVE 07/01/20 18:00 Blood Type Recheck A NEGATIVE 07/01/20 11:19 Antibody Screen POSITIVE 07/01/20 18:00 Antibody Identification Anti-D 07/01/20 18:00 Crossmatch See Detail 07/01/20 18:00
[2020-07-02 17:23] LABS: BASOPHILS % (AUTO) 0.3 %; EOSINOPHILS % (AUTO) 0.2 %; LYMPHOCYTES # (AUTO) 2.4 10^3/uL (1.5-3.5); LYMPHOCYTES % (AUTO) 24.4 %; MEAN CORPUSCULAR HEMOGLOBIN 30.2 pg (27.0-31.0); MEAN CORPUSCULAR HGB CONC 31.3 g/dL (32.0-36.0); MEAN CORPUSCULAR VOLUME 96.4 fL (81.0-99.0); MEAN PLATELET VOLUME 9.1 fL (7.9-10.8); MONOCYTES # (AUTO) 1.2 10^3/uL (0.0-1.0); NEUTROPHILS # (AUTO) 6.3 10^3/uL (1.5-6.6); NEUTROPHILS % (AUTO) 62.8 %; PLT - PLATELET COUNT 148 10^3/uL (130-450); RED BLOOD COUNT 2.22 10^6/uL (4.20-5.40); RED CELL DISTRIBUTION WIDTH 14.3 % (12.0-15.0)
[2020-07-02 17:26] LABS: HGB - HEMOGLOBIN 6.7 g/dL (12.0-16.0)
[2020-07-02 17:52] LABS: BASOPHILS % (AUTO) 0.3 %; EOSINOPHILS % (AUTO) 0.2 %; LYMPHOCYTES # (AUTO) 2.4 10^3/uL (1.5-3.5); LYMPHOCYTES % (AUTO) 23.2 %; MEAN CORPUSCULAR HEMOGLOBIN 31.2 pg (27.0-31.0); MEAN CORPUSCULAR HGB CONC 32.9 g/dL (32.0-36.0); MEAN PLATELET VOLUME 8.8 fL (7.9-10.8); MONOCYTES # (AUTO) 1.1 10^3/uL (0.0-1.0); MONOCYTES % (AUTO) 10.3 %; NEUTROPHILS # (AUTO) 6.8 10^3/uL (1.5-6.6); NEUTROPHILS % (AUTO) 65.4 %; PLT - PLATELET COUNT 143 10^3/uL (130-450); RED BLOOD COUNT 2.21 10^6/uL (4.20-5.40); RED CELL DISTRIBUTION WIDTH 14.3 % (12.0-15.0); WHITE BLOOD COUNT 10.3 x10^3/uL (4.8-10.8)
[2020-07-02 18:02] LABS: HGB - HEMOGLOBIN 6.9 g/dL (12.0-16.0)
--- NOTE | 2020-07-02 19:22 | CT Report ---
PROCEDURE: CHEST WO INDICATIONS: L axillary arterial bleeding TECHNIQUE: Noncontrast 5 mm thick sections acquired from the pulmonary apices to the posterior costophrenic angl es. 7 mm thick coronal and sagittal MIP reformats were then acquired. For radiation dose reduction, the following was used: automated exposure control, adjustment of mA and/or kV according to patient size. COMPARISON: FINDINGS: Image quality: Excellent. Lungs and pleura: No acute air space opacities on the right but there is opacification of a portion of the left lower lobe at the deep costophrenic sulcus where a small amount of pleural fluid appears also present. This could represent atelectasis or pneumonia.. No pleural effusions or pneumothorax. Central and peripheral airways are patent and normal in caliber. Mediastinum: Heart size is normal. No pericardial effusion. No mediastinal adenopathy by size crit eria. Thoracic aorta and central pulmonary arteries are normal in size. Esophagus is normal in blade demetrius. No hiatal hernia. Bones and chest wall: No suspicious bony lesions. No vertebral body compression fractures. No axil live or supraclavicular adenopathy by size criteria. The thyroid is normal in size. Quality of visua lization of the left axilla area is poorly defined, due to the presence of a relatively large left to kathryn shoulder arthroplasty. Cutaneous bianca are present over the lateral shoulder, and metal artifac t results in poor visualization of the left axilla and adjacent soft tissues. Expected postsurgical g as is scattered within the anterior and posterior left shoulder area. It is not possible to delineate presence or absence of contrast-enhanced blood extravasating into the area of the axilla due to the metal artifact present. Abdomen: Visualized upper abdominal solid organs and bowel loops appear normal in the absence of con trast. IMPRESSION: Left total shoulder arthroplasty has been performed, and produces metal artifact to the degree that t he area of the operative bed and immediately adjacent is poorly seen. There is no CT evidence of larg e hematoma or active extravasation of blood at time of imaging but a large portion of the area of int erest is obscured by metal artifact. Note is made of a small amount of alveolar infiltration at the left lung base, which could represent both atelectasis or pneumonia and even aspiration. A small amount of pleural fluid, only approximatel y 2 cm in thickness, is present in this area and not accessible for safe aspiration. No pneumothorax is seen. Reviewed by: Michael Lyle MD on 07/02/2020 7:21 PM PST Approved by: Michael Lyle MD on 07/02/2020 7:21 PM PST Station ID: [id number]
[2020-07-02] MEDS: ARIPiprazole 5 MG TABLET PO SCH (20:44)
[2020-07-02] MEDS ORDERED: ASPIRIN EC 81 MG TABLET PO SCH (21:00)
[2020-07-02] MEDS: oxyCODONE 5 MG TABLET PO PRN (22:16)
[2020-07-03] MEDS: SODIUM CHLORIDE FLUSH 0.9% 10 ML SYRINGE IVP PRN ×5 (01:10→23:27)
[2020-07-03] MEDS: ACETAMINOPHEN 500 MG TABLET PO PRN ×2 (05:08→19:11)
[2020-07-03 05:48] LABS: BASOPHILS % (AUTO) 0.3 %; EOSINOPHILS # (AUTO) 0.1 10^3/uL (0.0-0.7); HGB - HEMOGLOBIN 8.3 g/dL (12.0-16.0); LYMPHOCYTES # (AUTO) 1.8 10^3/uL (1.5-3.5); LYMPHOCYTES % (AUTO) 17.3 %; MEAN CORPUSCULAR HEMOGLOBIN 31.2 pg (27.0-31.0); MEAN CORPUSCULAR HGB CONC 32.9 g/dL (32.0-36.0); MEAN CORPUSCULAR VOLUME 94.7 fL (81.0-99.0); MONOCYTES # (AUTO) 1.2 10^3/uL (0.0-1.0); NEUTROPHILS % (AUTO) 68.8 %; PLT - PLATELET COUNT 119 10^3/uL (130-450); RED BLOOD COUNT 2.66 10^6/uL (4.20-5.40); RED CELL DISTRIBUTION WIDTH 14.3 % (12.0-15.0); WHITE BLOOD COUNT 10.2 x10^3/uL (4.8-10.8)
[2020-07-03 05:55] LABS: CALCIUM 7.7 mg/dL (8.5-10.3); CREATININE 0.8 mg/dL (0.4-1.0)
[2020-07-03 05:59] LABS: MAGNESIUM 1.7 mg/dL (1.7-2.8); PHOSPHORUS 2.3 mg/dL (2.5-4.6)
--- NOTE | 2020-07-03 07:49 | PROVIDER PROGRESS NOTE ---
Subjective - General Admit Date: 07/01/20 Procedure Date: 07/01/20 Post Op Days: 2 Procedure Performed: left total shoulder arthroplasty/ ligation of branch of axillary artery - Review of Systems Wound/Incisions: positive: Dressing dry and intact, No drainage, Other (mild/mod ecchymosis and soft tissue swelling/expected/stable; no obvious significant hematoma present.) General: positive: No symptoms Cardiovascular: negative: No symptoms (Left shoulder pain is well controlled with oral medication. She has relatively little pain to her left shoulder.) Musculoskeletal: positive: Shoulder pain (minimal), Other (no numbness, tingling or weakness in left arm or hand). negative: Arm pain - Other Other Information/Narrative: She had a left total shoulder arthroplasty with hemorrhage developing toward the end of the procedure. The hemorrhage was from a branch of the axillary artery which was ligated. Because of blood loss and hypotension, the patient was admitted to the intensive care unit postop. She has required a total of 4 units of blood since surgery. Her hemoglobin is 8.3 today. There was a drop in her hemoglobin yesterday. A CT scan was ordered and did not show any active bleeding or sign of hematoma to the left axilla but details were somewhat obscured because of artifact. Clinically the patient does not show any sign of significant hematoma or swelling to the operative site. She has a thin silver impregnated dressing to the incision that remains dry and intact. She has no sign of neurovascular deficit to the left upper extremity. Her left upper extremity remains well-perfused and no sign of any neurologic deficit. She can move her fingers, hand wrist and elbow well and is doing limited movement of left shoulder. She is using a sling. She is fully alert and oriented and in good spirits. She remains in intensive care unit for monitoring and blood pressure control which is still requiring vasopressors this morning after the vasopressor had been stopped for a period of time yesterday. She is making good urine output. She is being managed by the hospitalist with orthopedic input. Objective - Patient Data Vital Signs: Vital Signs x48h Temp Pulse Pulse Resp BP BP Pulse Ox 07/03/20 07:20 69 18 130/63 94 07/03/20 07:15 70 18 127/70 94 07/03/20 07:10 74 23 118/68 95 07/03/20 07:05 67 17 107/56 L 92 07/03/20 07:00 67 17 98/48 L 94 07/03/20 06:39 74 17 71/43 L 92 07/03/20 06:04 80 20 76/48 L 91 L 07/03/20 06:03 81 20 72/41 L 91 L 07/03/20 06:01 77 19 77/43 L 91 L 07/03/20 06:00 37 C 78 19 78/46 L 91 L 07/03/20 05:00 88 21 140/71 H 91 L 07/03/20 04:30 37.1 C 73 20 94/61 07/03/20 04:00 37.1 C 74 72 18 103/55 L 103/55 L 93 07/03/20 03:15 37 C 81 16 108/59 L 07/03/20 03:00 82 18 103/62 94 07/03/20 02:30 37 C 92 18 100/60 07/03/20 02:15 36.4 C L 85 19 101/64 07/03/20 02:00 36.4 C L 88 88 17 101/64 101/64 93 07/03/20 01:45 37 C 74 17 101/60 07/03/20 01:30 36.7 C 74 17 96/61 07/03/20 01:15 37 C 75 18 98/55 L 07/03/20 01:10 37 C 75 18 98/57 L 07/03/20 01:05 37.1 C 75 18 97/60 07/03/20 01:00 36.7 C 76 74 18 100/57 L 97/60 94 07/03/20 00:55 36.7 C 76 18 97/61 07/03/20 00:30 37.1 C 82 18 109/58 L 07/03/20 00:00 37 C 76 82 16 90/51 L 90/51 L 93 Weight: Weight 07/01/20 07/02/20 07/03/20 23:59 23:59 23:59 Weight (kg) 68 kg 72 kg 75 kg Intake & Output: Intake and Output Totals x24h 07/01/20 07/02/20 07/03/20 23:59 23:59 23:59 Intake Total 1285.25 3702.250 858.802 Output Total 1205 2658 1300 Balance 80.25 1044.250 -441.198 - Lab Results Lab Results: 07/03/20 05:31 07/03/20 05:31 Other Lab Results: Lab Results x24hrs 07/03/20 07/03/20 07/03/20 Range/Units 05:31 05:31 05:31 WBC (4.8-10.8) x10^3/uL RBC (4.20-5.40) 10^6/uL Hgb (12.0-16.0) g/dL Hct (37.0-47.0) % MCV (81.0-99.0) fL MCH (27.0-31.0) pg MCHC (32.0-36.0) g/dL RDW (12.0-15.0) % Plt Count (130-450) 10^3/uL MPV (7.9-10.8) fL Neut # (Auto) (1.5-6.6) 10^3/uL Lymph # (Auto) (1.5-3.5) 10^3/uL [place] # (Auto) (0.0-1.0) 10^3/uL Eos # (Auto) (0.0-0.7) 10^3/uL Baso # (Auto) (0.0-0.1) 10^3/uL Absolute Nucleated RBC x10^3/uL Nucleated RBC % /100WBC Sodium 139 (135-145) mmol/L Potassium 3.9 (3.5-5.0) mmol/L Chloride 107 (101-111) mmol/L Carbon Dioxide 26 (21-32) mmol/L Anion Gap 6.0 (6-13) BUN 17 (6-20) mg/dL Creatinine 0.8 (0.4-1.0) mg/dL Estimated GFR (MDRD) 69 L (>89) Glucose 101 H (70-100) mg/dL Calcium 7.7 L (8.5-10.3) mg/dL Phosphorus 2.3 L (2.5-4.6) mg/dL Magnesium 1.7 (1.7-2.8) mg/dL Albumin 2.5 L (3.2-5.5) g/dL Blood Type Antibody Screen Antibody Identification Crossmatch 07/03/20 07/02/20 07/02/20 Range/Units 05:31 17:45 17:04 WBC 10.2 10.3 10.0 (4.8-10.8) x10^3/uL RBC 2.66 L 2.21 L 2.22 L (4.20-5.40) 10^6/uL Hgb 8.3 L 6.9 L* 6.7 L* (12.0-16.0) g/dL Hct 25.2 L 21.0 L 21.4 L (37.0-47.0) % MCV 94.7 95.0 96.4 (81.0-99.0) fL MCH 31.2 H 31.2 H 30.2 (27.0-31.0) pg MCHC 32.9 32.9 31.3 L (32.0-36.0) g/dL RDW 14.3 14.3 14.3 (12.0-15.0) % Plt Count 119 L 143 148 (130-450) 10^3/uL MPV 9.0 8.8 9.1 (7.9-10.8) fL Neut # (Auto) 7.0 H 6.8 H 6.3 (1.5-6.6) 10^3/uL Lymph # (Auto) 1.8 2.4 2.4 (1.5-3.5) 10^3/uL [place] # (Auto) 1.2 H 1.1 H 1.2 H (0.0-1.0) 10^3/uL Eos # (Auto) 0.1 0.0 0.0 (0.0-0.7) 10^3/uL Baso # (Auto) 0.0 0.0 0.0 (0.0-0.1) 10^3/uL Absolute Nucleated RBC 0.00 0.00 0.00 x10^3/uL Nucleated RBC % 0.0 0.0 0.0 /100WBC Sodium (135-145) mmol/L Potassium (3.5-5.0) mmol/L Chloride (101-111) mmol/L Carbon Dioxide (21-32) mmol/L Anion Gap (6-13) BUN (6-20) mg/dL Creatinine (0.4-1.0) mg/dL Estimated GFR (MDRD) (>89) Glucose (70-100) mg/dL Calcium (8.5-10.3) mg/dL Phosphorus (2.5-4.6) mg/dL Magnesium (1.7-2.8) mg/dL Albumin (3.2-5.5) g/dL Blood Type Antibody Screen Antibody Identification Crossmatch 07/02/20 07/01/20 Range/Units 12:00 18:00 WBC (4.8-10.8) x10^3/uL RBC (4.20-5.40) 10^6/uL Hgb 10.1 L (12.0-16.0) g/dL Hct 30.1 L (37.0-47.0) % MCV (81.0-99.0) fL MCH (27.0-31.0) pg MCHC (32.0-36.0) g/dL RDW (12.0-15.0) % Plt Count (130-450) 10^3/uL MPV (7.9-10.8) fL Neut # (Auto) (1.5-6.6) 10^3/uL Lymph # (Auto) (1.5-3.5) 10^3/uL [place] # (Auto) (0.0-1.0) 10^3/uL Eos # (Auto) (0.0-0.7) 10^3/uL Baso # (Auto) (0.0-0.1) 10^3/uL Absolute Nucleated RBC x10^3/uL Nucleated RBC % /100WBC Sodium (135-145) mmol/L Potassium (3.5-5.0) mmol/L Chloride (101-111) mmol/L Carbon Dioxide (21-32) mmol/L Anion Gap (6-13) BUN (6-20) mg/dL Creatinine (0.4-1.0) mg/dL Estimated GFR (MDRD) (>89) Glucose (70-100) mg/dL Calcium (8.5-10.3) mg/dL Phosphorus (2.5-4.6) mg/dL Magnesium (1.7-2.8) mg/dL Albumin (3.2-5.5) g/dL Blood Type A NEGATIVE Antibody Screen POSITIVE Antibody Identification Anti-D Crossmatch See Detail - Current Medications Current Medications: Current Medications Generic Name Dose Route Start Last Admin Trade Name Zionq PRN Reason Stop Dose Admin Acetaminophen 1,000 mg 07/02/20 10:58 07/03/20 05:08 Acetaminophen 500 Mg Tablet PO 1,000 mg Q6HR PRN Administration Pain or Fever > 38C (100.4F) Alcohol 1 amp 07/01/20 21:00 07/02/20 20:44 Ethyl Alcohol 62% Swab Ampule DOMINGO 1 amp BID KELSEY Administration Aripiprazole 10 mg 07/02/20 21:00 07/02/20 20:44 Aripiprazole 5 Mg Tablet PO 10 mg QPM KELSEY Administration Citalopram Hydrobromide 20 mg 07/02/20 09:00 07/02/20 08:58 Citalopram 10 Mg Tablet PO 20 mg DAILY KELSEY Administration Famotidine 20 mg 07/01/20 21:00 07/02/20 20:44 Famotidine 20 Mg Tablet PO 20 mg BID KELSEY Administration Sodium Chloride 1,000 mls @ 50 mls/hr 07/02/20 15:12 07/03/20 07:04 Normal Saline 0.9% IV 50 mls/hr .Q20H KELSEY Infusion Norepinephrine Bitartrate 8 mg 250 mls @ 15 mls/hr 07/03/20 07:00 07/03/20 07:06 / Dextrose IV 5 mcg/min .[id number] KELSEY 9.375 mls/hr Titration Protocol 8 MCG/MIN Oxycodone HCl 5 mg 07/01/20 13:00 07/02/20 22:16 Oxycodone 5 Mg Tablet PO 5 mg Q6HR PRN Administration PAIN >8 Sodium Chloride 10 ml 07/01/20 17:00 07/02/20 20:46 Sodium Chloride Flush 0.9% 10 Ml Syringe IVP 10 ml 0100,0900,1700 KELSEY Administration Sodium Chloride 10 ml 07/01/20 13:00 07/03/20 05:38 Sodium Chloride Flush 0.9% 10 Ml Syringe IVP 10 ml PRN PRN Administration NEEDED PER PROVIDER ORDERS Sodium Chloride 20 ml 07/03/20 04:56 07/03/20 05:38 Sodium Chloride Flush 0.9% 10 Ml Syringe IVP 20 ml PRN PRN Administration After Blood Draw
[2020-07-03] MEDS: FAMOTIDINE 20 MG TABLET PO SCH ×2 (08:22→20:55)
[2020-07-03] MEDS: NEUTRA-PHOS 250 MG TABLET PO SCH ×2 (08:22→13:02)
[2020-07-03] MEDS: CITALOPRAM 10 MG TABLET PO SCH (08:22)
[2020-07-03] MEDS: ASPIRIN EC 81 MG TABLET PO SCH ×2 (08:24→20:56)
[2020-07-03] MEDS: ethyl alcohoL 62% SWAB AMPULE NAS SCH ×2 (08:24→20:56)
[2020-07-03 11:08] LABS: HGB - HEMOGLOBIN 8.4 g/dL (12.0-16.0)
[2020-07-03] MEDS: LOSARTAN 50 MG TABLET PO SCH (12:42)
[2020-07-03] MEDS: MAGNESIUM OXIDE 400 MG TABLET PO SCH ×2 (12:42→18:15)
[2020-07-03] MEDS: SODIUM CHLORIDE FLUSH 0.9% 10 ML SYRINGE IVP SCH ×2 (12:43→18:15)
[2020-07-03] MEDS: polyethylene glycoL 3350 17 GM PACKET PO SCH (13:02)
[2020-07-03] MEDS: TRIAMCINOLONE 0.1% CREAM 15 GM TUBE TOP SCH ×5 (17:08→21:47)
[2020-07-03 17:19] LABS: BASOPHILS % (AUTO) 0.2 %; EOSINOPHILS # (AUTO) 0.1 10^3/uL (0.0-0.7); EOSINOPHILS % (AUTO) 1.3 %; HGB - HEMOGLOBIN 8.3 g/dL (12.0-16.0); LYMPHOCYTES # (AUTO) 1.4 10^3/uL (1.5-3.5); LYMPHOCYTES % (AUTO) 14.3 %; MEAN CORPUSCULAR HEMOGLOBIN 31.6 pg (27.0-31.0); MEAN CORPUSCULAR HGB CONC 33.3 g/dL (32.0-36.0); MEAN CORPUSCULAR VOLUME 94.7 fL (81.0-99.0); MEAN PLATELET VOLUME 9.2 fL (7.9-10.8); MONOCYTES # (AUTO) 1.1 10^3/uL (0.0-1.0); MONOCYTES % (AUTO) 11.8 %; NEUTROPHILS # (AUTO) 6.9 10^3/uL (1.5-6.6); NEUTROPHILS % (AUTO) 71.7 %; PLT - PLATELET COUNT 128 10^3/uL (130-450); RED BLOOD COUNT 2.63 10^6/uL (4.20-5.40); RED CELL DISTRIBUTION WIDTH 14.4 % (12.0-15.0); WHITE BLOOD COUNT 9.7 x10^3/uL (4.8-10.8)
--- NOTE | 2020-07-03 17:35 | PROVIDER PROGRESS NOTE ---
Assessment/Plan - Problem List (1) Postoperative hemorrhagic shock Qualifiers: Encounter type: subsequent encounter Qualified Code(s): T81.19XD - Other postprocedural shock, subsequent encounter Assessment/Plan: She still dropped her BP < 80 after several hours off Levophed, overnight. Will try to again wean Levophed to off, keeping syst BP >90. Gentle iv hydration continues. Continue Mejia for accurate I's and O's. No transfer out of ICU today. (2) Anemia Assessment/Plan: She got 2U PRBCs the night after hemorrhage. Hgb wa stable until a drop to 6 this afternoon. No outward signs of bleeding. A CT chest was done with attn to the L shoulder, to look for hematoma and none was seen. This is likely hemodilutional, after many Liters of crystalloids given to treat shock. Will transfuse 2 more U PRBCs today. Follow H/H q12h. No transfer out of ICU yet. No OOB, continue Mejia (3) History of arthroplasty of left shoulder Assessment/Plan: As per Hx. Ortho is following along. Gentle PT and OT in bed are starting (4) Cardiomyopathy Assessment/Plan: Echo done here showed normal LVEF Watch I's and O's carefully, since she is needing fluids for BP resuscitation, so as not to produce pulm edema (5) Paroxysmal A-fib Assessment/Plan: HR is OK at rest, Cardvedilol will be first to be resumed when BP better. Xarelto stopped, due to hemorrhage. Today, the Orthopedic ASA bid order can be started for DVT prophylaxis. (6) Depression Assessment/Plan: Her home meds are ordered to use here (7) MELISSA (acute kidney injury) Assessment/Plan: Resolved - Current Meds Current Meds: Current Medications Generic Name Dose Route Start Last Admin Trade Name Freq PRN Reason Stop Dose Admin Acetaminophen 1,000 mg 07/02/20 10:58 07/03/20 05:08 Acetaminophen 500 Mg Tablet PO 1,000 mg Q6HR PRN Administration Pain or Fever > 38C (100.4F) Alcohol 1 amp 07/01/20 21:00 07/03/20 08:24 Ethyl Alcohol 62% Swab Ampule DOMINGO 1 amp BID KELSEY Administration Aripiprazole 10 mg 07/02/20 21:00 07/02/20 20:44 Aripiprazole 5 Mg Tablet PO 10 mg QPM KELSEY Administration Aspirin 81 mg 07/03/20 09:00 07/03/20 08:24 Aspirin Ec 81 Mg Tablet PO 81 mg BID KELSEY Administration Citalopram Hydrobromide 20 mg 07/02/20 09:00 07/03/20 08:22 Citalopram 10 Mg Tablet PO 20 mg DAILY KELSEY Administration Famotidine 20 mg 07/01/20 21:00 07/03/20 08:22 Famotidine 20 Mg Tablet PO 20 mg BID KELSEY Administration Sodium Chloride 1,000 mls @ 50 mls/hr 07/02/20 15:12 07/03/20 16:31 Normal Saline 0.9% IV 50 mls/hr .Q20H KELSEY Infusion Norepinephrine Bitartrate 8 mg 250 mls @ 15 mls/hr 07/03/20 07:00 07/03/20 14:05 / Dextrose IV 0 mcg/min .[id number] KELSEY 0 mls/hr Titration Protocol 8 MCG/MIN Losartan Potassium 25 mg 07/03/20 09:00 07/03/20 12:42 Losartan 50 Mg Tablet PO Not Given DAILY KELSEY Magnesium Oxide 400 mg 07/03/20 12:00 07/03/20 12:42 Magnesium Oxide 400 Mg Tablet PO 07/03/20 18:01 400 mg Q6H KELSEY Administration Protocol Oxycodone HCl 5 mg 07/01/20 13:00 07/02/20 22:16 Oxycodone 5 Mg Tablet PO 5 mg Q6HR PRN Administration PAIN >8 Polyethylene Glycol 17 gm 07/03/20 13:00 07/03/20 13:02 Polyethylene Glycol 3350 17 Gm Packet PO 17 gm DAILY KELSEY Administration Sodium Chloride 10 ml 07/01/20 17:00 07/03/20 12:43 Sodium Chloride Flush 0.9% 10 Ml Syringe IVP Not Given 0100,0900,1700 KELSEY Sodium Chloride 10 ml 07/01/20 13:00 07/03/20 05:38 Sodium Chloride Flush 0.9% 10 Ml Syringe IVP 10 ml PRN PRN Administration NEEDED PER PROVIDER ORDERS Sodium Chloride 20 ml 07/03/20 04:56 07/03/20 11:28 Sodium Chloride Flush 0.9% 10 Ml Syringe IVP 30 ml PRN PRN Administration After Blood Draw Triamcinolone Acetonide 1 applic 07/02/20 14:00 07/03/20 17:08 Triamcinolone 0.1% Cream 15 Gm Tube TOP Not Given TID KELSEY - Lab Result Fish Bone Diagrams: 07/04/20 04:30 07/04/20 04:30 - Additional Planning My Orders: My Active Orders 07/02/20 21:00 ARIPiprazole [Abilify] 10 mg PO QPM 07/03/20 04:56 Heparin Flush 30 - 50 unit IVP PRN PRN Sodium Chloride Flush 0.9% [Normal Saline Flush 0.9%] 20 ml IVP PRN PRN 07/03/20 09:00 Aspirin EC [Ecotrin] 81 mg PO BID Losartan [Cozaar] 25 mg PO DAILY carvediloL [Coreg] 6.25 mg PO BID 07/03/20 09:11 Miscellaenous Nursing Order [RC] QSHIFT 07/04/20 05:00 CBC - COMP BLD CT W/AUTO DIFF [HEME] Q12H 07/04/20 17:00 CBC - COMP BLD CT W/AUTO DIFF [HEME] Q12H Subjective - Subjective Patient Reports: Feeling Better, Other (Redness, swelling and itching of skin above and below L shoulder bandage) Objective Vital Signs: Vital Signs - 24 hr 07/02/20 07/02/20 07/02/20 18:00 19:00 20:00 Temperature 37.1 C 37.1 C Heart Rate Heart Rate [ 94 84 87 Monitoring electrodes] Respiratory 18 23 24 Rate Blood Pressure Blood Pressure 104/58 L 91/64 105/58 L [Right Brachial artery] O2 Saturation 99 95 97 07/02/20 07/02/20 07/02/20 20:53 20:59 21:00 Temperature 36.7 C 36.7 C Heart Rate 86 92 Heart Rate [ 84 Monitoring electrodes] Respiratory 25 H 18 23 Rate Blood Pressure 90/50 L 72/49 L Blood Pressure 72/49 L [Right Brachial artery] O2 Saturation 96 07/02/20 07/02/20 07/02/20 21:03 21:15 21:30 Temperature 37 C 37 C 37 C Heart Rate 88 80 81 Heart Rate [ Monitoring electrodes] Respiratory 23 23 23 Rate Blood Pressure 90/58 L 103/53 L 113/57 L Blood Pressure [Right Brachial artery] O2 Saturation 07/02/20 07/02/20 07/02/20 21:45 22:00 22:15 Temperature 37 C 37 C 37 C Heart Rate 83 81 96 Heart Rate [ 96 Monitoring electrodes] Respiratory 17 21 16 Rate Blood Pressure 103/84 H 119/59 L 88/71 L Blood Pressure 119/59 L [Right Brachial artery] O2 Saturation 96 07/02/20 07/02/20 07/02/20 22:30 22:45 23:00 Temperature 37 C 37 C 37 C Heart Rate 89 93 Heart Rate [ 82 Monitoring electrodes] Respiratory 22 17 15 Rate Blood Pressure 87/52 L 109/66 Blood Pressure 87/56 L [Right Brachial artery] O2 Saturation 93 07/02/20 07/02/20 07/02/20 23:15 23:30 23:45 Temperature 37 C 36.7 C 37 C Heart Rate 81 81 82 Heart Rate [ Monitoring electrodes] Respiratory 15 60 H 15 Rate Blood Pressure 95/58 L 95/51 L 99/56 L Blood Pressure [Right Brachial artery] O2 Saturation 07/03/20 07/03/20 07/03/20 00:00 00:30 00:55 Temperature 37 C 37.1 C 36.7 C Heart Rate 76 82 76 Heart Rate [ 82 Monitoring electrodes] Respiratory 16 18 18 Rate Blood Pressure 90/51 L 109/58 L 97/61 Blood Pressure 90/51 L [Right Brachial artery] O2 Saturation 93 07/03/20 07/03/20 07/03/20 01:00 01:05 01:10 Temperature 36.7 C 37.1 C 37 C Heart Rate 76 75 75 Heart Rate [ 74 Monitoring electrodes] Respiratory 18 18 18 Rate Blood Pressure 100/57 L 97/60 98/57 L Blood Pressure 97/60 [Right Brachial artery] O2 Saturation 94 07/03/20 07/03/20 07/03/20 01:15 01:30 01:45 Temperature 37 C 36.7 C 37 C Heart Rate 75 74 74 Heart Rate [ Monitoring electrodes] Respiratory 18 17 17 Rate Blood Pressure 98/55 L 96/61 101/60 Blood Pressure [Right Brachial artery] O2 Saturation 07/03/20 07/03/20 07/03/20 02:00 02:15 02:30 Temperature 36.4 C L 36.4 C L 37 C Heart Rate 88 85 92 Heart Rate [ 88 Monitoring electrodes] Respiratory 17 19 18 Rate Blood Pressure 101/64 101/64 100/60 Blood Pressure 101/64 [Right Brachial artery] O2 Saturation 93 07/03/20 07/03/20 07/03/20 03:00 03:15 04:00 Temperature 37 C 37.1 C Heart Rate 81 74 Heart Rate [ 82 72 Monitoring electrodes] Respiratory 18 16 18 Rate Blood Pressure 108/59 L 103/55 L Blood Pressure 103/62 103/55 L [Right Brachial artery] O2 Saturation 94 93 07/03/20 07/03/20 07/03/20 04:30 05:00 06:00 Temperature 37.1 C 37 C Heart Rate 73 Heart Rate [ 88 78 Monitoring electrodes] Respiratory 20 21 19 Rate Blood Pressure 94/61 Blood Pressure 140/71 H 78/46 L [Right Brachial artery] O2 Saturation 91 L 91 L 07/03/20 07/03/20 07/03/20 06:01 06:03 06:04 Temperature Heart Rate Heart Rate [ 77 81 80 Monitoring electrodes] Respiratory 19 20 20 Rate Blood Pressure Blood Pressure 77/43 L 72/41 L 76/48 L [Right Brachial artery] O2 Saturation 91 L 91 L 91 L 07/03/20 07/03/20 07/03/20 06:39 07:00 07:05 Temperature Heart Rate Heart Rate [ 74 67 67 Monitoring electrodes] Respiratory 17 17 17 Rate Blood Pressure Blood Pressure 71/43 L 98/48 L 107/56 L [Right Brachial artery] O2 Saturation 92 94 92 07/03/20 07/03/20 07/03/20 07:10 07:15 07:20 Temperature Heart Rate Heart Rate [ 74 70 69 Monitoring electrodes] Respiratory 23 18 18 Rate Blood Pressure Blood Pressure 118/68 127/70 130/63 [Right Brachial artery] O2 Saturation 95 94 94 07/03/20 07/03/20 07/03/20 08:00 08:27 08:36 Temperature 37.0 C Heart Rate Heart Rate [ 87 94 93 Monitoring electrodes] Respiratory 22 Rate Blood Pressure Blood Pressure 129/80 95/58 L 97/46 L [Right Brachial artery] O2 Saturation 93 07/03/20 07/03/20 07/03/20 09:00 10:00 11:00 Temperature Heart Rate Heart Rate [ 87 81 77 Monitoring electrodes] Respiratory 23 22 24 Rate Blood Pressure Blood Pressure 95/61 91/42 L 100/50 L [Right Brachial artery] O2 Saturation 94 94 95 07/03/20 07/03/20 07/03/20 12:00 13:00 13:30 Temperature 37.2 C Heart Rate Heart Rate [ 89 89 86 Monitoring electrodes] Respiratory 21 22 Rate Blood Pressure Blood Pressure 103/77 107/93 H 107/73 [Right Brachial artery] O2 Saturation 94 07/03/20 07/03/20 07/03/20 14:02 14:04 14:21 Temperature Heart Rate Heart Rate [ 82 86 82 Monitoring electrodes] Respiratory 26 H Rate Blood Pressure Blood Pressure 104/59 L 107/57 L 87/55 L [Right Brachial artery] O2 Saturation 93 07/03/20 07/03/20 07/03/20 15:00 16:00 17:00 Temperature 37.3 C Heart Rate Heart Rate [ 88 82 90 Monitoring electrodes] Respiratory 23 24 21 Rate Blood Pressure Blood Pressure 97/54 L 96/55 L 102/51 L [Right Brachial artery] O2 Saturation 95 93 95 Oxygen O2 Source Room air I&O (Last 24 Hrs): Intake and Output Totals x24h 07/01/20 07/02/20 07/03/20 23:59 23:59 23:59 Intake Total 1285.25 3702.250 2210.396 Output Total 1205 2658 2670 Balance 80.25 1044.250 -459.604 General: Alert, Oriented x3 HEENT: EOMI, Mucous membr. moist/pink Neck: Supple, No JVD Neuro: Alert, Non Focal Cardiovascular: Regular rate, No murmurs Respiratory: No respiratory distress, Breath sounds nml Abdomen: Soft Extremities: No edema, Other (L upper arm red, swollen, shoulder in sling, small bandage on upper arm at surg site) - Results Results: Laboratory Results WBC 9.7 x10^3/uL (4.8-10.8) 07/03/20 17:10 RBC 2.63 10^6/uL (4.20-5.40) L 07/03/20 17:10 Hgb 8.3 g/dL (12.0-16.0) L 07/03/20 17:10 Hct 24.9 % (37.0-47.0) L 07/03/20 17:10 MCV 94.7 fL (81.0-99.0) 07/03/20 17:10 MCH 31.6 pg (27.0-31.0) H 07/03/20 17:10 MCHC 33.3 g/dL (32.0-36.0) 07/03/20 17:10 RDW 14.4 % (12.0-15.0) 07/03/20 17:10 Plt Count 128 10^3/uL (130-450) L 07/03/20 17:10 MPV 9.2 fL (7.9-10.8) 07/03/20 17:10 Neut # (Auto) 6.9 10^3/uL (1.5-6.6) H 07/03/20 17:10 Lymph # (Auto) 1.4 10^3/uL (1.5-3.5) L 07/03/20 17:10 [place] # (Auto) 1.1 10^3/uL (0.0-1.0) H 07/03/20 17:10 Eos # (Auto) 0.1 10^3/uL (0.0-0.7) 07/03/20 17:10 Baso # (Auto) 0.0 10^3/uL (0.0-0.1) 07/03/20 17:10 Absolute Nucleated RBC 0.00 x10^3/uL 07/03/20 17:10 Total Counted 100 07/02/20 04:35 Band Neuts % (Manual) 3 % (0-10) 07/02/20 04:35 Abnorm Lymph % (Manual) 0 % 07/02/20 04:35 Nucleated RBC % 0.0 /100WBC 07/03/20 17:10 Neutrophils # (Manual) 11.2 10^3/uL (1.5-6.6) H 07/02/20 04:35 Lymphocytes # (Manual) 1.4 10^3/uL (1.5-3.5) L 07/02/20 04:35 Monocytes # (Manual) 1.1 10^3/uL (0.0-1.0) H 07/02/20 04:35 Eosinophils # (Manual) 0.0 10^3/uL (0-0.7) 07/02/20 04:35 Basophils # (Manual) 0.0 10^3/uL (0-0.1) 07/02/20 04:35 Differential Comment MANUAL DIFFERENTIAL 07/02/20 04:35 Platelet Estimate NORMAL (130-450,000) (NORMAL) 07/02/20 04:35 RBC Morph Micro Appear NORMAL APPEARANCE (NORMAL) 07/02/20 04:35 PT 13.6 secs (9.9-12.6) H 07/01/20 18:00 INR 1.2 (0.8-1.2) 07/01/20 18:00 Sodium 139 mmol/L (135-145) 07/03/20 05:31 Potassium 3.9 mmol/L (3.5-5.0) 07/03/20 05:31 Chloride 107 mmol/L (101-111) 07/03/20 05:31 Carbon Dioxide 26 mmol/L (21-32) 07/03/20 05:31 Anion Gap 6.0 (6-13) 07/03/20 05:31 BUN 17 mg/dL (6-20) 07/03/20 05:31 Creatinine 0.8 mg/dL (0.4-1.0) 07/03/20 05:31 Estimated GFR (MDRD) 69 (>89) L 07/03/20 05:31 Glucose 101 mg/dL (70-100) H 07/03/20 05:31 Calcium 7.7 mg/dL (8.5-10.3) L 07/03/20 05:31 Phosphorus 2.3 mg/dL (2.5-4.6) L 07/03/20 05:31 Magnesium 1.7 mg/dL (1.7-2.8) 07/03/20 05:31 Total Bilirubin 0.4 mg/dL (0.2-1.0) 07/01/20 13:36 AST 28 IU/L (10-42) 07/01/20 13:36 ALT 18 IU/L (10-60) 07/01/20 13:36 Alkaline Phosphatase 41 IU/L (42-121) L 07/01/20 13:36 Troponin I High Sens 19.7 ng/L (2.3-14.8) H* 07/01/20 18:00 Total Protein 4.4 g/dL (6.7-8.2) L 07/01/20 13:36 Albumin 2.5 g/dL (3.2-5.5) L 07/03/20 05:31 Globulin 1.9 g/dL (2.1-4.2) L 07/01/20 13:36 Albumin/Globulin Ratio 1.3 (1.0-2.2) 07/01/20 13:36 Nasal Screen MRSA (PCR) NEGATIVE (NEGATIVE) 07/01/20 15:00 Blood Type A NEGATIVE 07/01/20 18:00 Blood Type Recheck A NEGATIVE 07/01/20 11:19 Antibody Screen POSITIVE 07/01/20 18:00 Antibody Identification Anti-D 07/01/20 18:00 Crossmatch See Detail 07/01/20 18:00
[2020-07-03] MEDS: carvediloL 12.5 MG TABLET PO SCH ×2 (18:19→20:56)
[2020-07-03] MEDS: SODIUM CHLORIDE 0.9% 1,000 ML IV SCH (18:22)
[2020-07-03] MEDS: ARIPiprazole 5 MG TABLET PO SCH (20:55)
[2020-07-03] MEDS: oxyCODONE 5 MG TABLET PO PRN (23:26)
[2020-07-04] MEDS: ACETAMINOPHEN 500 MG TABLET PO PRN ×3 (04:21→18:33)
[2020-07-04] MEDS: SODIUM CHLORIDE FLUSH 0.9% 10 ML SYRINGE IVP PRN (04:27)
[2020-07-04] MEDS: SODIUM CHLORIDE FLUSH 0.9% 10 ML SYRINGE IVP SCH ×5 (04:27→19:30)
[2020-07-04 05:15] LABS: BASOPHILS % (AUTO) 0.2 %; EOSINOPHILS # (AUTO) 0.2 10^3/uL (0.0-0.7); EOSINOPHILS % (AUTO) 2.2 %; HGB - HEMOGLOBIN 7.6 g/dL (12.0-16.0); LYMPHOCYTES # (AUTO) 1.7 10^3/uL (1.5-3.5); LYMPHOCYTES % (AUTO) 20.6 %; MEAN CORPUSCULAR HEMOGLOBIN 30.8 pg (27.0-31.0); MEAN CORPUSCULAR HGB CONC 31.8 g/dL (32.0-36.0); MEAN CORPUSCULAR VOLUME 96.8 fL (81.0-99.0); MEAN PLATELET VOLUME 9.5 fL (7.9-10.8); MONOCYTES % (AUTO) 12.5 %; NEUTROPHILS # (AUTO) 5.2 10^3/uL (1.5-6.6); PLT - PLATELET COUNT 141 10^3/uL (130-450); RED BLOOD COUNT 2.47 10^6/uL (4.20-5.40); RED CELL DISTRIBUTION WIDTH 14.3 % (12.0-15.0); WHITE BLOOD COUNT 8.2 x10^3/uL (4.8-10.8)
[2020-07-04 05:24] LABS: CALCIUM 7.7 mg/dL (8.5-10.3); CREATININE 0.7 mg/dL (0.4-1.0)
[2020-07-04] MEDS: TRIAMCINOLONE 0.1% CREAM 15 GM TUBE TOP SCH ×3 (06:12→21:04)
[2020-07-04 07:06] LABS: ALBUMIN 2.3 g/dL (3.2-5.5); MAGNESIUM 1.9 mg/dL (1.7-2.8)
[2020-07-04] MEDS: LOSARTAN 50 MG TABLET PO SCH (08:05)
[2020-07-04] MEDS: FAMOTIDINE 20 MG TABLET PO SCH ×2 (08:13→21:03)
[2020-07-04] MEDS: CITALOPRAM 10 MG TABLET PO SCH (08:13)
[2020-07-04] MEDS: MIDODRINE 2.5 MG TABLET PO SCH ×3 (08:13→18:33)
[2020-07-04] MEDS: ASPIRIN EC 81 MG TABLET PO SCH ×2 (08:13→21:02)
[2020-07-04] MEDS: ethyl alcohoL 62% SWAB AMPULE NAS SCH ×2 (08:14→21:03)
[2020-07-04] MEDS: oxyCODONE 5 MG TABLET PO PRN ×2 (08:14→21:04)
[2020-07-04] MEDS: polyethylene glycoL 3350 17 GM PACKET PO SCH (08:19)
[2020-07-04] MEDS ORDERED: carvediloL 3.125 MG TABLET PO SCH (09:00)
--- NOTE | 2020-07-04 11:34 | PROVIDER PROGRESS NOTE ---
Subjective - General Admit Date: 07/01/20 Procedure Date: 07/01/20 Post Op Days: 3 Procedure Performed: left total shoulder arthroplasty/ repair of branch of axillary artery - Review of Systems Wound/Incisions: positive: Dressing dry and intact, No drainage, Other (mild/mod ecchymosis and soft tissue swelling/expected/stable; no obvious significant hematoma present.) General: positive: No symptoms Cardiovascular: negative: No symptoms (Left shoulder pain is well controlled with oral medication. She has relatively little pain to her left shoulder.) Musculoskeletal: positive: Shoulder pain (minimal), Other (no numbness, tingling or weakness in left arm or hand). negative: Arm pain Psychiatric: positive: No symptoms - Other Other Information/Narrative: Patient is alert and oriented x3. She is in good spirits. She is talking well and telling jokes. She has mild pain to her left shoulder. She has no neurovascular symptoms to left upper extremity. She remains in the intensive care unit. She is scheduled to be mobilized today and go to the medical s urgical floor. She is off vasopressors. Her urine output has been very good. Her vital signs are stable with a somewhat low blood pressure but a symptomatic. On exam, left shoulder dressing is clean and dry. There is no sign of any drainage or hematoma about the operative site. There is mild swelling to the left shoulder. She has no neurovascular deficit distal to the left shoulder. She has good perfusion to left hand with a good radial artery pulse. She has full motion of fingers of left hand, good active motion to all joints below the left shoulder including fingers, wrist and left elbow. She has minimal pain with passive forward flexion to 90 degrees, full internal rotation to chest and approximately 15 degrees external rotation to left shoulder.CT scan of left shoulder has been reviewed that was obtained on the prior day or so and shows good alignment of the left total shoulder arthroplasty and no sign of hematoma at the operative site. Impression status post left total shoulder arthroplasty with intraoperative complication of axillary artery bleeding, repaired Discussion: Patient as a result of her bleeding, lost significant blood which has been controlled with repair of bleeding vessel. She did have hypotension but no endorgan failure. Clinically, she is doing well and improving gradually each day. She does not demonstrate any sign of bleeding recurrence and shows completely normal neurovascular function to left upper extremity at this time. Even at the time of surgery when there was bleeding, she had good distal perfusion as the main branch of the axillary artery was intact. 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 Objective - Patient Data Vital Signs: Vital Signs x48h Temp Pulse Resp BP Pulse Ox 07/04/20 11:00 95 21 101/56 L 92 07/04/20 10:00 83 18 80/51 L 91 L 07/04/20 09:21 91/59 L 07/04/20 09:00 37.1 C 100 14 93 07/04/20 08:00 92 20 103/61 94 07/04/20 07:30 83 17 93/64 93 07/04/20 07:03 78 17 82/63 L 93 07/04/20 06:20 68 16 119/64 92 07/04/20 06:08 78 15 84/54 L 92 07/04/20 05:03 37 C 77 16 88/49 L 92 07/04/20 04:12 83 23 89/60 L 92 Weight: Weight 07/02/20 07/03/20 07/04/20 23:59 23:59 23:59 Weight (kg) 72 kg 75 kg 75.5 kg Intake & Output: Intake and Output Totals x24h 07/02/20 07/03/20 07/04/20 23:59 23:59 23:59 Intake Total 3702.250 2989.563 1179.167 Output Total 2658 3370 1285 Balance 1044.250 -380.437 -105.833 - Lab Results Lab Results: 07/04/20 04:30 07/04/20 04:30 Other Lab Results: Lab Results x24hrs 07/04/20 07/04/20 07/04/20 Range/Units 04:30 04:30 04:30 WBC (4.8-10.8) x10^3/uL RBC (4.20-5.40) 10^6/uL Hgb (12.0-16.0) g/dL Hct (37.0-47.0) % MCV (81.0-99.0) fL MCH (27.0-31.0) pg MCHC (32.0-36.0) g/dL RDW (12.0-15.0) % Plt Count (130-450) 10^3/uL MPV (7.9-10.8) fL Neut # (Auto) (1.5-6.6) 10^3/uL Lymph # (Auto) (1.5-3.5) 10^3/uL [place] # (Auto) (0.0-1.0) 10^3/uL Eos # (Auto) (0.0-0.7) 10^3/uL Baso # (Auto) (0.0-0.1) 10^3/uL Absolute Nucleated RBC x10^3/uL Nucleated RBC % /100WBC Sodium 136 (135-145) mmol/L Potassium 3.8 (3.5-5.0) mmol/L Chloride 105 (101-111) mmol/L Carbon Dioxide 27 (21-32) mmol/L Anion Gap 4.0 L (6-13) BUN 12 (6-20) mg/dL Creatinine 0.7 (0.4-1.0) mg/dL Estimated GFR (MDRD) 80 L (>89) Glucose 89 (70-100) mg/dL Calcium 7.7 L (8.5-10.3) mg/dL Phosphorus 2.6 (2.5-4.6) mg/dL Magnesium 1.9 (1.7-2.8) mg/dL Albumin 2.3 L (3.2-5.5) g/dL 07/04/20 07/03/20 Range/Units 04:30 17:10 WBC 8.2 9.7 (4.8-10.8) x10^3/uL RBC 2.47 L 2.63 L (4.20-5.40) 10^6/uL Hgb 7.6 L 8.3 L (12.0-16.0) g/dL Hct 23.9 L 24.9 L (37.0-47.0) % MCV 96.8 94.7 (81.0-99.0) fL MCH 30.8 31.6 H (27.0-31.0) pg MCHC 31.8 L 33.3 (32.0-36.0) g/dL RDW 14.3 14.4 (12.0-15.0) % Plt Count 141 128 L (130-450) 10^3/uL MPV 9.5 9.2 (7.9-10.8) fL Neut # (Auto) 5.2 6.9 H (1.5-6.6) 10^3/uL Lymph # (Auto) 1.7 1.4 L (1.5-3.5) 10^3/uL [place] # (Auto) 1.0 1.1 H (0.0-1.0) 10^3/uL Eos # (Auto) 0.2 0.1 (0.0-0.7) 10^3/uL Baso # (Auto) 0.0 0.0 (0.0-0.1) 10^3/uL Absolute Nucleated RBC 0.00 0.00 x10^3/uL Nucleated RBC % 0.0 0.0 /100WBC Sodium (135-145) mmol/L Potassium (3.5-5.0) mmol/L Chloride (101-111) mmol/L Carbon Dioxide (21-32) mmol/L Anion Gap (6-13) BUN (6-20) mg/dL Creatinine (0.4-1.0) mg/dL Estimated GFR (MDRD) (>89) Glucose (70-100) mg/dL Calcium (8.5-10.3) mg/dL Phosphorus (2.5-4.6) mg/dL Magnesium (1.7-2.8) mg/dL Albumin (3.2-5.5) g/dL - Current Medications Current Medications: Current Medications Generic Name Dose Route Start Last Admin Trade Name Freq PRN Reason Stop Dose Admin Acetaminophen 1,000 mg 07/02/20 10:58 07/04/20 04:21 Acetaminophen 500 Mg Tablet PO 1,000 mg Q6HR PRN Administration Pain or Fever > 38C (100.4F) Alcohol 1 amp 07/01/20 21:00 07/04/20 08:14 Ethyl Alcohol 62% Swab Ampule DOMINGO 1 amp BID KELSEY Administration Aripiprazole 10 mg 07/02/20 21:00 07/03/20 20:55 Aripiprazole 5 Mg Tablet PO 10 mg QPM KELSEY Administration Aspirin 81 mg 07/03/20 09:00 07/04/20 08:13 Aspirin Ec 81 Mg Tablet PO 81 mg BID KELSEY Administration Carvedilol 6.25 mg 07/04/20 09:00 07/04/20 10:09 Carvedilol 3.125 Mg Tablet PO Not Given BID KELSEY Citalopram Hydrobromide 20 mg 07/02/20 09:00 07/04/20 08:13 Citalopram 10 Mg Tablet PO 20 mg DAILY KELSEY Administration Famotidine 20 mg 07/01/20 21:00 07/04/20 08:13 Famotidine 20 Mg Tablet PO 20 mg BID KELSEY Administration Sodium Chloride 1,000 mls @ 50 mls/hr 07/02/20 15:12 07/04/20 06:41 Normal Saline 0.9% IV 50 mls/hr .Q20H KELSEY Infusion Losartan Potassium 25 mg 07/03/20 09:00 07/04/20 08:05 Losartan 50 Mg Tablet PO Not Given DAILY KELSEY Midodrine 2.5 mg 07/04/20 08:00 07/04/20 08:13 Midodrine 2.5 Mg Tablet PO 2.5 mg TIDWM KELSEY Administration Oxycodone HCl 5 mg 07/01/20 13:00 07/04/20 08:14 Oxycodone 5 Mg Tablet PO 5 mg Q6HR PRN Administration PAIN >8 Polyethylene Glycol 17 gm 07/03/20 13:00 07/04/20 08:19 Polyethylene Glycol 3350 17 Gm Packet PO Not Given DAILY KELSEY Sodium Chloride 10 ml 07/01/20 17:00 07/04/20 08:19 Sodium Chloride Flush 0.9% 10 Ml Syringe IVP 10 ml 0100,0900,1700 KELSEY Administration Sodium Chloride 10 ml 07/01/20 13:00 07/03/20 23:27 Sodium Chloride Flush 0.9% 10 Ml Syringe IVP 10 ml PRN PRN Administration NEEDED PER PROVIDER ORDERS Sodium Chloride 20 ml 07/03/20 04:56 07/04/20 04:27 Sodium Chloride Flush 0.9% 10 Ml Syringe IVP 20 ml PRN PRN Administration After Blood Draw Triamcinolone Acetonide 1 applic 07/02/20 14:00 07/04/20 06:12 Triamcinolone 0.1% Cream 15 Gm Tube TOP Not Given TID KELSEY
--- NOTE | 2020-07-04 12:51 | PROVIDER PROGRESS NOTE ---
Assessment/Plan - Problem List (1) Hypotension Assessment/Plan: She still runs blood pressures of 80-100 systolic. This is her first day OOB. A set of orthostatics was ordered and she is not orthostatic. Midodrine started today. Because she is short of breath we will discontinue her normal saline hydration. I suspect that she is chronically hypotensive since she is on carvedilol and other meds that drop her blood pressure, and she is warm and dry and mentating with these blood pressures of 80 mmHg. (2) Axillary artery laceration Assessment/Plan: Appreciate the general surgeon doing follow-up of the left arm arterial flow. Continue with slow resumption of left arm activity with PT and OT (3) History of arthroplasty of left shoulder Assessment/Plan: Appreciate input from orthopedic surgeon following along. We will proceed more aggressively with PT now that she can be OOB (4) Anemia Assessment/Plan: She required 2 more units PRBCs yesterday evening for a drop in hemoglobin. Presumably that was hemodilution all since there are no signs of blood loss anywhere. CT scan of the left shoulder did not show hematoma. Follow CBC every 12 hours. Transfuse if under 7 or if under 8 with symptom (5) Cardiomyopathy Assessment/Plan: She describes feeling short of breath today, first time OOB and with movement. We will stop the IV fluids. Since her blood pressure is still "soft", midodrine was started today. Will not yet resume her carvedilol and other medications until blood pressure is 90 systolic (6) Paroxysmal A-fib Assessment/Plan: Heart rate is under good control currently, carvedilol has been resumed with hold orders. She cannot be on Xarelto currently since aspirin twice daily was started for DVT prophylaxis by the orthopedist, And she has a high chance of rebleeding because of the recent surgery plus the recent arterial trauma. (7) Depression Assessment/Plan: She is on her home meds for this (8) MELISSA (acute kidney injury) Assessment/Plan: Resolved (9) Postoperative hemorrhagic shock Qualifiers: Encounter type: subsequent encounter Qualified Code(s): T81.19XD - Other postprocedural shock, subsequent encounter Assessment/Plan: The shock has resolved - Current Meds Current Meds: Current Medications Generic Name Dose Route Start Last Admin Trade Name Freq PRN Reason Stop Dose Admin Acetaminophen 1,000 mg 07/02/20 10:58 07/04/20 12:23 Acetaminophen 500 Mg Tablet PO 1,000 mg Q6HR PRN Administration Pain or Fever > 38C (100.4F) Alcohol 1 amp 07/01/20 21:00 07/04/20 08:14 Ethyl Alcohol 62% Swab Ampule DOMINGO 1 amp BID KELSEY Administration Aripiprazole 10 mg 07/02/20 21:00 07/03/20 20:55 Aripiprazole 5 Mg Tablet PO 10 mg QPM KELSEY Administration Aspirin 81 mg 07/03/20 09:00 07/04/20 08:13 Aspirin Ec 81 Mg Tablet PO 81 mg BID KELSEY Administration Carvedilol 6.25 mg 07/04/20 09:00 07/04/20 10:09 Carvedilol 3.125 Mg Tablet PO Not Given BID KELSEY Citalopram Hydrobromide 20 mg 07/02/20 09:00 07/04/20 08:13 Citalopram 10 Mg Tablet PO 20 mg DAILY KELSEY Administration Famotidine 20 mg 07/01/20 21:00 07/04/20 08:13 Famotidine 20 Mg Tablet PO 20 mg BID KELSEY Administration Losartan Potassium 25 mg 07/03/20 09:00 07/04/20 08:05 Losartan 50 Mg Tablet PO Not Given DAILY KELSEY Midodrine 2.5 mg 07/04/20 08:00 07/04/20 12:23 Midodrine 2.5 Mg Tablet PO 2.5 mg TIDWM KELSEY Administration Oxycodone HCl 5 mg 07/01/20 13:00 07/04/20 08:14 Oxycodone 5 Mg Tablet PO 5 mg Q6HR PRN Administration PAIN >8 Polyethylene Glycol 17 gm 07/03/20 13:00 07/04/20 08:19 Polyethylene Glycol 3350 17 Gm Packet PO Not Given DAILY KELSEY Sodium Chloride 10 ml 07/01/20 17:00 07/04/20 08:19 Sodium Chloride Flush 0.9% 10 Ml Syringe IVP 10 ml 0100,[id number],1700 KELSEY Administration Sodium Chloride 10 ml 07/01/20 13:00 07/03/20 23:27 Sodium Chloride Flush 0.9% 10 Ml Syringe IVP 10 ml PRN PRN Administration NEEDED PER PROVIDER ORDERS Sodium Chloride 20 ml 07/03/20 04:56 07/04/20 04:27 Sodium Chloride Flush 0.9% 10 Ml Syringe IVP 20 ml PRN PRN Administration After Blood Draw Triamcinolone Acetonide 1 applic 07/02/20 14:00 07/04/20 06:12 Triamcinolone 0.1% Cream 15 Gm Tube TOP Not Given TID KELSEY - Lab Result Fish Bone Diagrams: 07/04/20 04:30 07/04/20 04:30 - Additional Planning My Orders: My Active Orders 07/04/20 08:00 Midodrine 2.5 mg PO TIDWM 07/04/20 09:00 carvediloL [Coreg] 6.25 mg PO BID 07/04/20 10:21 Vital Signs - Orthostatic [RC] DAILY 07/04/20 12:48 Transfer [Admit \\ Transfer \\ Status] [RC] .ONCE 07/04/20 17:00 CBC - COMP BLD CT W/AUTO DIFF [HEME] Q12H 07/05/20 05:00 MAGNESIUM [CHEM] DAILYLAB PHOSPHORUS [CHEM] DAILYLAB POTASSIUM [CHEM] DAILYLAB 07/06/20 05:00 MAGNESIUM [CHEM] DAILYLAB PHOSPHORUS [CHEM] DAILYLAB Subjective - Subjective Patient Reports: Shortness of Breath (Today is the first day that she is OOB, she was short of breath with some walking in her room. And orthostatic check was done after getting midodrine, she is not orthostatic.) Objective Vital Signs: Vital Signs - 24 hr 07/03/20 07/03/20 07/03/20 13:00 13:30 14:02 Temperature Heart Rate [ 89 86 82 Monitoring electrodes] Respiratory 22 Rate Blood Pressure 107/93 H 107/73 104/59 L [Right Brachial artery] O2 Saturation 07/03/20 07/03/20 07/03/20 14:04 14:21 15:00 Temperature Heart Rate [ 86 82 88 Monitoring electrodes] Respiratory 26 H 23 Rate Blood Pressure 107/57 L 87/55 L 97/54 L [Right Brachial artery] O2 Saturation 93 95 07/03/20 07/03/20 07/03/20 16:00 17:00 18:00 Temperature 37.3 C Heart Rate [ 82 90 88 Monitoring electrodes] Respiratory 24 21 25 H Rate Blood Pressure 96/55 L 102/51 L 108/56 L [Right Brachial artery] O2 Saturation 93 95 92 07/03/20 07/03/20 07/03/20 19:00 20:00 21:00 Temperature 37.4 C 37.5 C Heart Rate [ 89 89 85 Monitoring electrodes] Respiratory 25 H 18 26 H Rate Blood Pressure 101/51 L 110/63 104/56 L [Right Brachial artery] O2 Saturation 94 94 93 07/03/20 07/03/20 07/04/20 22:00 23:00 00:00 Temperature 37 C Heart Rate [ 85 87 76 Monitoring electrodes] Respiratory 18 23 17 Rate Blood Pressure 96/62 99/56 L 82/54 L [Right Brachial artery] O2 Saturation 93 92 93 07/04/20 07/04/20 07/04/20 01:06 02:00 03:00 Temperature Heart Rate [ 75 75 75 Monitoring electrodes] Respiratory 18 18 17 Rate Blood Pressure 96/51 L 85/42 L 92/48 L [Right Brachial artery] O2 Saturation 93 91 L 91 L 07/04/20 07/04/20 07/04/20 04:12 05:03 06:08 Temperature 37 C Heart Rate [ 83 77 78 Monitoring electrodes] Respiratory 23 16 15 Rate Blood Pressure 89/60 L 88/49 L 84/54 L [Right Brachial artery] O2 Saturation 92 92 92 07/04/20 07/04/20 07/04/20 06:20 07:03 07:30 Temperature Heart Rate [ 68 78 83 Monitoring electrodes] Respiratory 16 17 17 Rate Blood Pressure 119/64 82/63 L 93/64 [Right Brachial artery] O2 Saturation 92 93 93 07/04/20 07/04/20 07/04/20 08:00 09:00 09:21 Temperature 37.1 C Heart Rate [ 92 100 Monitoring electrodes] Respiratory 20 14 Rate Blood Pressure 103/61 91/59 L [Right Brachial artery] O2 Saturation 94 93 07/04/20 07/04/20 07/04/20 10:00 11:00 12:00 Temperature Heart Rate [ 83 95 95 Monitoring electrodes] Respiratory 18 21 23 Rate Blood Pressure 80/51 L 101/56 L 105/88 H [Right Brachial artery] O2 Saturation 91 L 92 94 07/04/20 12:25 Temperature 37.0 C Heart Rate [ Monitoring electrodes] Respiratory Rate Blood Pressure [Right Brachial artery] O2 Saturation Oxygen O2 Source Room air I&O (Last 24 Hrs): Intake and Output Totals x24h 07/02/20 07/03/20 07/04/20 23:59 23:59 23:59 Intake Total 3702.250 2989.563 1179.167 Output Total 2658 3370 1285 Balance 1044.250 -380.437 -105.833 General: Alert, Oriented x3 HEENT: EOMI, Mucous membr. moist/pink Neck: Supple, No JVD Neuro: Alert, Non Focal Cardiovascular: Regular rate, No murmurs Respiratory: No respiratory distress, Breath sounds nml Abdomen: Soft Extremities: No edema, Other (Left arm in sling and has small bandage below left shoulder, Left upper arm is red and swollen, nontender) - Results Results: Laboratory Results WBC 8.2 x10^3/uL (4.8-10.8) 07/04/20 04:30 RBC 2.47 10^6/uL (4.20-5.40) L 07/04/20 04:30 Hgb 7.6 g/dL (12.0-16.0) L 07/04/20 04:30 Hct 23.9 % (37.0-47.0) L 07/04/20 04:30 MCV 96.8 fL (81.0-99.0) 07/04/20 04:30 MCH 30.8 pg (27.0-31.0) 07/04/20 04:30 MCHC 31.8 g/dL (32.0-36.0) L 07/04/20 04:30 RDW 14.3 % (12.0-15.0) 07/04/20 04:30 Plt Count 141 10^3/uL (130-450) 07/04/20 04:30 MPV 9.5 fL (7.9-10.8) 07/04/20 04:30 Neut # (Auto) 5.2 10^3/uL (1.5-6.6) 07/04/20 04:30 Lymph # (Auto) 1.7 10^3/uL (1.5-3.5) 07/04/20 04:30 [place] # (Auto) 1.0 10^3/uL (0.0-1.0) 07/04/20 04:30 Eos # (Auto) 0.2 10^3/uL (0.0-0.7) 07/04/20 04:30 Baso # (Auto) 0.0 10^3/uL (0.0-0.1) 07/04/20 04:30 Absolute Nucleated RBC 0.00 x10^3/uL 07/04/20 04:30 Total Counted 100 07/02/20 04:35 Band Neuts % (Manual) 3 % (0-10) 07/02/20 04:35 Abnorm Lymph % (Manual) 0 % 07/02/20 04:35 Nucleated RBC % 0.0 /100WBC 07/04/20 04:30 Neutrophils # (Manual) 11.2 10^3/uL (1.5-6.6) H 07/02/20 04:35 Lymphocytes # (Manual) 1.4 10^3/uL (1.5-3.5) L 07/02/20 04:35 Monocytes # (Manual) 1.1 10^3/uL (0.0-1.0) H 07/02/20 04:35 Eosinophils # (Manual) 0.0 10^3/uL (0-0.7) 07/02/20 04:35 Basophils # (Manual) 0.0 10^3/uL (0-0.1) 07/02/20 04:35 Differential Comment MANUAL DIFFERENTIAL 07/02/20 04:35 Platelet Estimate NORMAL (130-450,000) (NORMAL) 07/02/20 04:35 RBC Morph Micro Appear NORMAL APPEARANCE (NORMAL) 07/02/20 04:35 PT 13.6 secs (9.9-12.6) H 07/01/20 18:00 INR 1.2 (0.8-1.2) 07/01/20 18:00 Sodium 136 mmol/L (135-145) 07/04/20 04:30 Potassium 3.8 mmol/L (3.5-5.0) 07/04/20 04:30 Chloride 105 mmol/L (101-111) 07/04/20 04:30 Carbon Dioxide 27 mmol/L (21-32) 07/04/20 04:30 Anion Gap 4.0 (6-13) L 07/04/20 04:30 BUN 12 mg/dL (6-20) 07/04/20 04:30 Creatinine 0.7 mg/dL (0.4-1.0) 07/04/20 04:30 Estimated GFR (MDRD) 80 (>89) L 07/04/20 04:30 Glucose 89 mg/dL (70-100) 07/04/20 04:30 Calcium 7.7 mg/dL (8.5-10.3) L 07/04/20 04:30 Phosphorus 2.6 mg/dL (2.5-4.6) 07/04/20 04:30 Magnesium 1.9 mg/dL (1.7-2.8) 07/04/20 04:30 Total Bilirubin 0.4 mg/dL (0.2-1.0) 07/01/20 13:36 AST 28 IU/L (10-42) 07/01/20 13:36 ALT 18 IU/L (10-60) 07/01/20 13:36 Alkaline Phosphatase 41 IU/L (42-121) L 07/01/20 13:36 Troponin I High Sens 19.7 ng/L (2.3-14.8) H* 07/01/20 18:00 Total Protein 4.4 g/dL (6.7-8.2) L 07/01/20 13:36 Albumin 2.3 g/dL (3.2-5.5) L 07/04/20 04:30 Globulin 1.9 g/dL (2.1-4.2) L 07/01/20 13:36 Albumin/Globulin Ratio 1.3 (1.0-2.2) 07/01/20 13:36 Nasal Screen MRSA (PCR) NEGATIVE (NEGATIVE) 07/01/20 15:00 Blood Type A NEGATIVE 07/01/20 18:00 Blood Type Recheck A NEGATIVE 07/01/20 11:19 Antibody Screen POSITIVE 07/01/20 18:00 Antibody Identification Anti-D 07/01/20 18:00 Crossmatch See Detail 07/01/20 18:00
[2020-07-04 16:56] LABS: BASOPHILS % (AUTO) 0.5 %; EOSINOPHILS # (AUTO) 0.3 10^3/uL (0.0-0.7); EOSINOPHILS % (AUTO) 3.3 %; HGB - HEMOGLOBIN 8.3 g/dL (12.0-16.0); LYMPHOCYTES # (AUTO) 1.3 10^3/uL (1.5-3.5); LYMPHOCYTES % (AUTO) 15.4 %; MEAN CORPUSCULAR HEMOGLOBIN 31.3 pg (27.0-31.0); MEAN CORPUSCULAR HGB CONC 32.3 g/dL (32.0-36.0); MEAN PLATELET VOLUME 9.4 fL (7.9-10.8); MONOCYTES % (AUTO) 11.6 %; NEUTROPHILS # (AUTO) 5.8 10^3/uL (1.5-6.6); NEUTROPHILS % (AUTO) 68.8 %; PLT - PLATELET COUNT 168 10^3/uL (130-450); RED BLOOD COUNT 2.65 10^6/uL (4.20-5.40); RED CELL DISTRIBUTION WIDTH 14.2 % (12.0-15.0); WHITE BLOOD COUNT 8.5 x10^3/uL (4.8-10.8)
[2020-07-04] MEDS: ARIPiprazole 5 MG TABLET PO SCH (21:02)
[2020-07-04] MEDS: carvediloL 3.125 MG TABLET PO SCH (21:03)
[2020-07-05] MEDS: SODIUM CHLORIDE FLUSH 0.9% 10 ML SYRINGE IVP PRN ×2 (04:36)
[2020-07-05] MEDS: ACETAMINOPHEN 500 MG TABLET PO PRN ×3 (04:54→18:19)
[2020-07-05] MEDS: TRIAMCINOLONE 0.1% CREAM 15 GM TUBE TOP SCH ×3 (05:06→21:15)
[2020-07-05 05:27] LABS: BASOPHILS % (AUTO) 0.1 %; EOSINOPHILS # (AUTO) 0.4 10^3/uL (0.0-0.7); HGB - HEMOGLOBIN 7.6 g/dL (12.0-16.0); LYMPHOCYTES # (AUTO) 1.7 10^3/uL (1.5-3.5); LYMPHOCYTES % (AUTO) 24.1 %; MEAN CORPUSCULAR HEMOGLOBIN 30.4 pg (27.0-31.0); MEAN CORPUSCULAR HGB CONC 30.5 g/dL (32.0-36.0); MEAN CORPUSCULAR VOLUME 99.6 fL (81.0-99.0); MEAN PLATELET VOLUME 9.6 fL (7.9-10.8); MONOCYTES # (AUTO) 0.8 10^3/uL (0.0-1.0); MONOCYTES % (AUTO) 11.7 %; NEUTROPHILS # (AUTO) 4.1 10^3/uL (1.5-6.6); NEUTROPHILS % (AUTO) 58.7 %; PLT - PLATELET COUNT 186 10^3/uL (130-450); RED CELL DISTRIBUTION WIDTH 14.3 % (12.0-15.0); WHITE BLOOD COUNT 6.9 x10^3/uL (4.8-10.8)
[2020-07-05 05:47] LABS: CALCIUM 8.1 mg/dL (8.5-10.3); CREATININE 0.8 mg/dL (0.4-1.0)
[2020-07-05] MEDS: FAMOTIDINE 20 MG TABLET PO SCH ×2 (08:41→21:10)
[2020-07-05] MEDS: ASPIRIN EC 81 MG TABLET PO SCH ×2 (08:41→21:09)
[2020-07-05] MEDS: CITALOPRAM 10 MG TABLET PO SCH (08:41)
[2020-07-05] MEDS: carvediloL 3.125 MG TABLET PO SCH ×2 (08:41→21:09)
[2020-07-05] MEDS: LOSARTAN 50 MG TABLET PO SCH (08:42)
[2020-07-05] MEDS: ethyl alcohoL 62% SWAB AMPULE NAS SCH ×2 (08:42→21:10)
[2020-07-05] MEDS: polyethylene glycoL 3350 17 GM PACKET PO SCH (08:42)
[2020-07-05] MEDS: MIDODRINE 2.5 MG TABLET PO SCH ×3 (08:42→17:24)
[2020-07-05] MEDS: SODIUM CHLORIDE FLUSH 0.9% 10 ML SYRINGE IVP SCH ×3 (08:43→21:18)
[2020-07-05] MEDS: FERROUS GLUCONATE 324 MG TABLET PO SCH ×2 (10:51→17:24)
--- NOTE | 2020-07-05 11:31 | PROVIDER PROGRESS NOTE ---
Subjective - General Admit Date: 07/01/20 Procedure Date: 07/01/20 Post Op Days: 4 Procedure Performed: left total shoulder arthroplasty/ repair of branch of axillary artery - Review of Systems Wound/Incisions: positive: Dressing dry and intact, No drainage, Other (mild/mod ecchymosis and soft tissue swelling/expected/stable; no obvious significant hematoma present.) General: positive: No symptoms Cardiovascular: negative: No symptoms (Left shoulder pain is well controlled with oral medication. She has relatively little pain to her left shoulder.) Musculoskeletal: positive: Shoulder pain (minimal), Other (no numbness, tingling or weakness in left arm or hand). negative: Arm pain Psychiatric: positive: No symptoms - Other Other Information/Narrative: Subjective: The patient's pain is minimal to left shoulder; she rates it as a 1 on a scale of 1-10. Her pain currently is much less than it was prior to surgery. She is working on active motion of her left hand, left wrist, forearm and elbow and passive forward flexion and external rotation of left shoulder. She is in good spirits as usual. She is pleased with her care. She is ready to go home today with her and daughter who has come to help her recover at home as well. She is not having any neurologic or vascular symptoms to left upper extremity. She has been up walking with physical therapy and did well. Her blood pressure continues to improve and is stable. She is not having any symptoms of anemia. She denies chest pain or shortness of breath. Objective: The incision to the left shoulder is clean and dry with a silver impregnated dressing that was applied at the time of surgery. She does have some swelling And ecchymosis to left upper extremity and this is decreasing. Her compartments are soft. She has good perfusion to left upper extremity and a good radial artery pulse. There is no sign of hematoma.There is no neurologic deficit. She has good active motion of all of her fingers, wrist, forearm and elbow on the left side and passively she reaches 90 degrees of forward flexion with minimal pain. She is fully alert and oriented.Her laboratory values have been reviewed and her hemoglobin is stable. Assessment: Status post left total shoulder arthroplasty associated with increased blood loss during surgery Which required volume replacement, blood transfusion and vasopressors in the intensive care unit. Discussion And plan: She is made excellent progress with comanaged care with our hospitalist. She has been receiving occupational and physical therapy. Her condition continues to improve daily. She is a safe discharge, discussed with hospitalist as well who concurs. The plan is to recheck her on July 13, 2020 in orthopedic clinic for staple removal. Physical therapy or occupational therapy has been requested in [place] at our [facility] clinic. She has a sling to use for ambulation. She may shower with her dressing in place. Her m edications will be ordered by her hospitalist. Objective - Patient Data Vital Signs: Vital Signs x48h Temp Pulse Resp BP Pulse Ox 07/05/20 08:37 36.9 C 97 19 101/60 92 07/05/20 04:45 37.0 C 68 17 116/68 96 Weight: Weight 07/03/20 07/04/20 07/05/20 23:59 23:59 23:59 Weight (kg) 75 kg 75.5 kg 74.5 kg Intake & Output: Intake and Output Totals x24h 07/03/20 07/04/20 07/05/20 23:59 23:59 23:59 Intake Total 2989.563 2097.333 490 Output Total 3370 1585 400 Balance -380.437 512.333 90 - Lab Results Lab Results: 07/05/20 04:40 07/05/20 04:40 Other Lab Results: Lab Results x24hrs 07/05/20 07/05/20 07/05/20 Range/Units 04:40 04:40 04:40 WBC 6.9 (4.8-10.8) x10^3/uL RBC 2.50 L (4.20-5.40) 10^6/uL Hgb 7.6 L (12.0-16.0) g/dL Hct 24.9 L (37.0-47.0) % MCV 99.6 H (81.0-99.0) fL MCH 30.4 (27.0-31.0) pg MCHC 30.5 L (32.0-36.0) g/dL RDW 14.3 (12.0-15.0) % Plt Count 186 (130-450) 10^3/uL MPV 9.6 (7.9-10.8) fL Neut # (Auto) 4.1 (1.5-6.6) 10^3/uL Lymph # (Auto) 1.7 (1.5-3.5) 10^3/uL [place] # (Auto) 0.8 (0.0-1.0) 10^3/uL Eos # (Auto) 0.4 (0.0-0.7) 10^3/uL Baso # (Auto) 0.0 (0.0-0.1) 10^3/uL Absolute Nucleated RBC 0.00 x10^3/uL Nucleated RBC % 0.0 /100WBC Sodium 139 (135-145) mmol/L Potassium 4.0 (3.5-5.0) mmol/L Chloride 105 (101-111) mmol/L Carbon Dioxide 28 (21-32) mmol/L Anion Gap 6.0 (6-13) BUN 12 (6-20) mg/dL Creatinine 0.8 (0.4-1.0) mg/dL Estimated GFR (MDRD) 69 L (>89) Glucose 89 (70-100) mg/dL Calcium 8.1 L (8.5-10.3) mg/dL Magnesium 2.0 (1.7-2.8) mg/dL Crossmatch 07/04/20 07/01/20 Range/Units 16:44 18:00 WBC 8.5 (4.8-10.8) x10^3/uL RBC 2.65 L (4.20-5.40) 10^6/uL Hgb 8.3 L (12.0-16.0) g/dL Hct 25.7 L (37.0-47.0) % MCV 97.0 (81.0-99.0) fL MCH 31.3 H (27.0-31.0) pg MCHC 32.3 (32.0-36.0) g/dL RDW 14.2 (12.0-15.0) % Plt Count 168 (130-450) 10^3/uL MPV 9.4 (7.9-10.8) fL Neut # (Auto) 5.8 (1.5-6.6) 10^3/uL Lymph # (Auto) 1.3 L (1.5-3.5) 10^3/uL [place] # (Auto) 1.0 (0.0-1.0) 10^3/uL Eos # (Auto) 0.3 (0.0-0.7) 10^3/uL Baso # (Auto) 0.0 (0.0-0.1) 10^3/uL Absolute Nucleated RBC 0.00 x10^3/uL Nucleated RBC % 0.0 /100WBC Sodium (135-145) mmol/L Potassium (3.5-5.0) mmol/L Chloride (101-111) mmol/L Carbon Dioxide (21-32) mmol/L Anion Gap (6-13) BUN (6-20) mg/dL Creatinine (0.4-1.0) mg/dL Estimated GFR (MDRD) (>89) Glucose (70-100) mg/dL Calcium (8.5-10.3) mg/dL Magnesium (1.7-2.8) mg/dL Crossmatch See Detail - Current Medications Current Medications: Current Medications Generic Name Dose Route Start Last Admin Trade Name Freq PRN Reason Stop Dose Admin Acetaminophen 1,000 mg 07/02/20 10:58 07/05/20 10:51 Acetaminophen 500 Mg Tablet PO 1,000 mg Q6HR PRN Administration Pain or Fever > 38C (100.4F) Alcohol 1 amp 07/01/20 21:00 07/05/20 08:42 Ethyl Alcohol 62% Swab Ampule DOMINGO 1 amp BID KELSEY Administration Aripiprazole 10 mg 07/02/20 21:00 07/04/20 21:02 Aripiprazole 5 Mg Tablet PO 10 mg QPM KELSEY Administration Aspirin 81 mg 07/03/20 09:00 07/05/20 08:41 Aspirin Ec 81 Mg Tablet PO 81 mg BID KELSEY Administration Carvedilol 6.25 mg 07/04/20 18:35 07/05/20 08:41 Carvedilol 3.125 Mg Tablet PO 6.25 mg BID KELSEY Administration Citalopram Hydrobromide 20 mg 07/02/20 09:00 07/05/20 08:41 Citalopram 10 Mg Tablet PO 20 mg DAILY KELSEY Administration Famotidine 20 mg 07/01/20 21:00 07/05/20 08:41 Famotidine 20 Mg Tablet PO 20 mg BID KELSEY Administration Ferrous Gluconate 324 mg 07/05/20 09:32 07/05/20 10:51 Ferrous Gluconate 324 Mg Tablet PO 324 mg BIDWM KELSEY Administration Losartan Potassium 25 mg 07/04/20 18:36 07/05/20 08:42 Losartan 50 Mg Tablet PO 25 mg DAILY KELSEY Administration Midodrine 5 mg 07/05/20 08:00 07/05/20 08:42 Midodrine 2.5 Mg Tablet PO 5 mg TIDWM KELSEY Administration Oxycodone HCl 5 mg 07/01/20 13:00 07/04/20 21:04 Oxycodone 5 Mg Tablet PO 5 mg Q6HR PRN Administration PAIN >8 Polyethylene Glycol 17 gm 07/03/20 13:00 07/05/20 08:42 Polyethylene Glycol 3350 17 Gm Packet PO 17 gm DAILY KELSEY Administration Sodium Chloride 10 ml 07/01/20 17:00 07/05/20 08:43 Sodium Chloride Flush 0.9% 10 Ml Syringe IVP 10 ml 0100,0900,1700 KELSEY Administration Sodium Chloride 10 ml 07/01/20 13:00 07/05/20 04:36 Sodium Chloride Flush 0.9% 10 Ml Syringe IVP 10 ml PRN PRN Administration NEEDED PER PROVIDER ORDERS Sodium Chloride 20 ml 07/03/20 04:56 07/05/20 04:36 Sodium Chloride Flush 0.9% 10 Ml Syringe IVP 20 ml PRN PRN Administration After Blood Draw Triamcinolone Acetonide 1 applic 07/02/20 14:00 07/05/20 05:06 Triamcinolone 0.1% Cream 15 Gm Tube TOP 1 applic TID KELSEY Administration
[2020-07-05] MEDS: oxyCODONE 5 MG TABLET PO PRN ×2 (13:36→21:13)
--- NOTE | 2020-07-05 14:10 | PROVIDER PROGRESS NOTE ---
Assessment/Plan - Problem List (1) SOB (shortness of breath) on exertion Assessment/Plan: This patient was dyspneic, nurse thought she was even wheezing with ambulation. The patient was desaturating on room air after the walk, down to 86%. We will obtain a chest x-ray. The patient has had many liters positive in fluid balance since being admitted because of being in shock. She likely has some pulmonary edema related to that and her prior cardiomyopathy. The echo done this admission shows preserved LVEF however she may have diastolic dysfunction. Will not discharged today, she will likely need some diuretics and still has to have resumption of all her cardiac medications, which have been on hold because of her hypotension. These will be resumed at lower doses and in a staggered fashion. (2) Anemia Assessment/Plan: Hemoglobin has dropped to 7. Her IV fluids were stopped yesterday. She still probably needs to equilibrate all of her parenteral fluid that was administered over many days here, and treatment for shock. Start oral iron replacement therapy today. Follow CBC every 12 hours or daily. She may need transfusion of blood with Lasix (3) History of arthroplasty of left shoulder Assessment/Plan: The patient appears progressing well in terms of ADL and also orthopedist states she is recovering well. The patient agrees to outpatient physical therapy and Occupational Therapy. (4) Cardiomyopathy Assessment/Plan: Due to hypotension and then "soft" blood pressures this entire admission, her carvedilol, lisinopril and diuretics have been on hold. Midodrine had to be started for improving blood pressure so that Levophed did not have to be restarted. Today was her first dose of getting the carvedilol and ARB, at lower doses than what she took at home. Will resume her diuretic as well (5) Paroxysmal A-fib Assessment/Plan: She has been in sinus rhythm during this hospitalization. Xarelto was stopped because of the hemorrhage. Aspirin twice daily has been started for DVT prophylaxis, as ordered by orthopedics (6) Depression Assessment/Plan: Her home meds have been resumed for this (7) MELISSA (acute kidney injury) Assessment/Plan: Resolved (8) Postoperative hemorrhagic shock Qualifiers: Encounter type: subsequent encounter Qualified Code(s): T81.19XD - Other postprocedural shock, subsequent encounter Assessment/Plan: Resolved - Current Meds Current Meds: Current Medications Generic Name Dose Route Start Last Admin Trade Name Zionq PRN Reason Stop Dose Admin Acetaminophen 1,000 mg 07/02/20 10:58 07/05/20 10:51 Acetaminophen 500 Mg Tablet PO 1,000 mg Q6HR PRN Administration Pain or Fever > 38C (100.4F) Alcohol 1 amp 07/01/20 21:00 07/05/20 08:42 Ethyl Alcohol 62% Swab Ampule DOMINGO 1 amp BID KELSEY Administration Aripiprazole 10 mg 07/02/20 21:00 07/04/20 21:02 Aripiprazole 5 Mg Tablet PO 10 mg QPM KELSEY Administration Aspirin 81 mg 07/03/20 09:00 07/05/20 08:41 Aspirin Ec 81 Mg Tablet PO 81 mg BID KELSEY Administration Carvedilol 6.25 mg 07/04/20 18:35 07/05/20 08:41 Carvedilol 3.125 Mg Tablet PO 6.25 mg BID KELSEY Administration Citalopram Hydrobromide 20 mg 07/02/20 09:00 07/05/20 08:41 Citalopram 10 Mg Tablet PO 20 mg DAILY KELSEY Administration Famotidine 20 mg 07/01/20 21:00 07/05/20 08:41 Famotidine 20 Mg Tablet PO 20 mg BID KELSEY Administration Ferrous Gluconate 324 mg 07/05/20 09:32 07/05/20 10:51 Ferrous Gluconate 324 Mg Tablet PO 324 mg BIDWM KELSEY Administration Losartan Potassium 25 mg 07/04/20 18:36 07/05/20 08:42 Losartan 50 Mg Tablet PO 25 mg DAILY KELSEY Administration Midodrine 5 mg 07/05/20 08:00 07/05/20 13:35 Midodrine 2.5 Mg Tablet PO 5 mg TIDWM KELSEY Administration Oxycodone HCl 5 mg 07/01/20 13:00 07/05/20 13:36 Oxycodone 5 Mg Tablet PO 5 mg Q6HR PRN Administration PAIN >8 Polyethylene Glycol 17 gm 07/03/20 13:00 07/05/20 08:42 Polyethylene Glycol 3350 17 Gm Packet PO 17 gm DAILY KELSEY Administration Sodium Chloride 10 ml 07/01/20 17:00 07/05/20 08:43 Sodium Chloride Flush 0.9% 10 Ml Syringe IVP 10 ml 0100,0900,1700 KELSEY Administration Sodium Chloride 10 ml 07/01/20 13:00 07/05/20 04:36 Sodium Chloride Flush 0.9% 10 Ml Syringe IVP 10 ml PRN PRN Administration NEEDED PER PROVIDER ORDERS Sodium Chloride 20 ml 07/03/20 04:56 07/05/20 04:36 Sodium Chloride Flush 0.9% 10 Ml Syringe IVP 20 ml PRN PRN Administration After Blood Draw Triamcinolone Acetonide 1 applic 07/02/20 14:00 07/05/20 13:36 Triamcinolone 0.1% Cream 15 Gm Tube TOP 1 applic TID KELSEY Administration - Lab Result Fish Bone Diagrams: 07/05/20 04:40 07/05/20 04:40 - Additional Planning My Orders: My Active Orders 07/04/20 18:33 Miscellaenous Nursing Order [RC] QSHIFT 07/04/20 18:35 carvediloL [Coreg] 6.25 mg PO BID 07/04/20 18:36 Losartan [Cozaar] 25 mg PO DAILY 07/05/20 08:00 Midodrine 5 mg PO TIDWM 07/05/20 09:32 Ferrous Gluconate [Fergon] 324 mg PO BIDWM 07/05/20 13:40 Chest 1 View X-Ray [XR] Stat 07/05/20 16:00 HEMOGLOBIN AND HEMATOCRIT [HEME] Timed 07/06/20 05:00 MAGNESIUM [CHEM] DAILYLAB Subjective - Subjective Patient Reports: Shortness of Breath (She was short of breath with walking in the hallway today.) Nursing Reports: Other (The nurse confirmed that the patient seemed to be wheezing when she was ambulating in the hallway and that upon return to her room her oxygen saturation was 86% on room air.) Objective Vital Signs: Vital Signs - 24 hr 07/04/20 07/04/20 07/04/20 16:00 16:05 19:44 Temperature 37 C 37 C Heart Rate [ 80 82 Monitoring electrodes] Respiratory 20 23 Rate Blood Pressure 83/56 L 107/70 105/70 [Right Brachial artery] O2 Saturation 93 93 07/04/20 07/05/20 07/05/20 23:44 04:45 08:37 Temperature 36.7 C 37.0 C 36.9 C Heart Rate [ 69 68 97 Monitoring electrodes] Respiratory 15 17 19 Rate Blood Pressure 120/63 116/68 101/60 [Right Brachial artery] O2 Saturation 93 96 92 07/05/20 13:00 Temperature 37.2 C Heart Rate [ 80 Monitoring electrodes] Respiratory 15 Rate Blood Pressure 85/57 L [Right Brachial artery] O2 Saturation 91 L Oxygen O2 Source Room air I&O (Last 24 Hrs): Intake and Output Totals x24h 07/03/20 07/04/20 07/05/20 23:59 23:59 23:59 Intake Total 2989.563 2097.333 970 Output Total 3370 1585 600 Balance -380.437 512.333 370 General: Alert, Oriented x3 HEENT: EOMI, Mucous membr. moist/pink Neck: Supple, No JVD Neuro: Alert, Non Focal Cardiovascular: Regular rate, No murmurs Respiratory: Rales (Right basilar rales, No wheezing or rhonchi) Abdomen: Soft Extremities: Other (Left arm is in a sling, compression bandages are off, there is a small bandage of the anterior upper arm, there is mild redness, there is trace edema both above and below the band) - Results Results: Laboratory Results WBC 6.9 x10^3/uL (4.8-10.8) 07/05/20 04:40 RBC 2.50 10^6/uL (4.20-5.40) L 07/05/20 04:40 Hgb 7.6 g/dL (12.0-16.0) L 07/05/20 04:40 Hct 24.9 % (37.0-47.0) L 07/05/20 04:40 MCV 99.6 fL (81.0-99.0) H 07/05/20 04:40 MCH 30.4 pg (27.0-31.0) 07/05/20 04:40 MCHC 30.5 g/dL (32.0-36.0) L 07/05/20 04:40 RDW 14.3 % (12.0-15.0) 07/05/20 04:40 Plt Count 186 10^3/uL (130-450) 07/05/20 04:40 MPV 9.6 fL (7.9-10.8) 07/05/20 04:40 Neut # (Auto) 4.1 10^3/uL (1.5-6.6) 07/05/20 04:40 Lymph # (Auto) 1.7 10^3/uL (1.5-3.5) 07/05/20 04:40 [place] # (Auto) 0.8 10^3/uL (0.0-1.0) 07/05/20 04:40 Eos # (Auto) 0.4 10^3/uL (0.0-0.7) 07/05/20 04:40 Baso # (Auto) 0.0 10^3/uL (0.0-0.1) 07/05/20 04:40 Absolute Nucleated RBC 0.00 x10^3/uL 07/05/20 04:40 Total Counted 100 07/02/20 04:35 Band Neuts % (Manual) 3 % (0-10) 07/02/20 04:35 Abnorm Lymph % (Manual) 0 % 07/02/20 04:35 Nucleated RBC % 0.0 /100WBC 07/05/20 04:40 Neutrophils # (Manual) 11.2 10^3/uL (1.5-6.6) H 07/02/20 04:35 Lymphocytes # (Manual) 1.4 10^3/uL (1.5-3.5) L 07/02/20 04:35 Monocytes # (Manual) 1.1 10^3/uL (0.0-1.0) H 07/02/20 04:35 Eosinophils # (Manual) 0.0 10^3/uL (0-0.7) 07/02/20 04:35 Basophils # (Manual) 0.0 10^3/uL (0-0.1) 07/02/20 04:35 Differential Comment MANUAL DIFFERENTIAL 07/02/20 04:35 Platelet Estimate NORMAL (130-450,000) (NORMAL) 07/02/20 04:35 RBC Morph Micro Appear NORMAL APPEARANCE (NORMAL) 07/02/20 04:35 PT 13.6 secs (9.9-12.6) H 07/01/20 18:00 INR 1.2 (0.8-1.2) 07/01/20 18:00 Sodium 139 mmol/L (135-145) 07/05/20 04:40 Potassium 4.0 mmol/L (3.5-5.0) 07/05/20 04:40 Chloride 105 mmol/L (101-111) 07/05/20 04:40 Carbon Dioxide 28 mmol/L (21-32) 07/05/20 04:40 Anion Gap 6.0 (6-13) 07/05/20 04:40 BUN 12 mg/dL (6-20) 07/05/20 04:40 Creatinine 0.8 mg/dL (0.4-1.0) 07/05/20 04:40 Estimated GFR (MDRD) 69 (>89) L 07/05/20 04:40 Glucose 89 mg/dL (70-100) 07/05/20 04:40 Calcium 8.1 mg/dL (8.5-10.3) L 07/05/20 04:40 Phosphorus 2.6 mg/dL (2.5-4.6) 07/04/20 04:30 Magnesium 2.0 mg/dL (1.7-2.8) 07/05/20 04:40 Total Bilirubin 0.4 mg/dL (0.2-1.0) 07/01/20 13:36 AST 28 IU/L (10-42) 07/01/20 13:36 ALT 18 IU/L (10-60) 07/01/20 13:36 Alkaline Phosphatase 41 IU/L (42-121) L 07/01/20 13:36 Troponin I High Sens 19.7 ng/L (2.3-14.8) H* 07/01/20 18:00 Total Protein 4.4 g/dL (6.7-8.2) L 07/01/20 13:36 Albumin 2.3 g/dL (3.2-5.5) L 07/04/20 04:30 Globulin 1.9 g/dL (2.1-4.2) L 07/01/20 13:36 Albumin/Globulin Ratio 1.3 (1.0-2.2) 07/01/20 13:36 Nasal Screen MRSA (PCR) NEGATIVE (NEGATIVE) 07/01/20 15:00 Blood Type A NEGATIVE 07/01/20 18:00 Blood Type Recheck A NEGATIVE 07/01/20 11:19 Antibody Screen POSITIVE 07/01/20 18:00 Antibody Identification Anti-D 07/01/20 18:00 Crossmatch See Detail 07/01/20 18:00
--- NOTE | 2020-07-05 14:17 | XRAY Report ---
PROCEDURE: Chest 1 View X-Ray INDICATIONS: SOB, desatuirates with walking TECHNIQUE: One view of the chest was acquired. COMPARISON: CT chest without contrast, 07/02/2020. Chest x-ray, 2 view, 08/08/2016. FINDINGS: Surgical changes and devices: There is a right IJ central line with the tip projecting to the SVC. Mei rgical fusion of the lower cervical spine and upper thoracic spine is intact hardware. Left shoulder arthroplasty. Lungs and pleura: There is a small left pleural effusion. Left basilar opacity may be consolidation or atelectasis. No pneumothorax. Mediastinum: Mediastinal contours appear normal. Heart size is normal. Bones and chest wall: No suspicious bony lesions. Overlying soft tissues appear unremarkable. IMPRESSION: Small left pleural effusion with left basilar consolidation or atelectasis. Reviewed by: Lela Pemberton MD on 07/05/2020 2:16 PM PST Approved by: Lela Pemberton MD on 07/05/2020 2:16 PM PST Station ID: [id number]
[2020-07-05] MEDS ORDERED: FUROSEMIDE 20 MG/2 ML VIAL IVP PRN (14:20)
[2020-07-05] MEDS: NYSTATIN 500000 UNITS/5 ML UDC PO SCH ×2 (15:40→21:10)
[2020-07-05] MEDS ORDERED: CARBOXYMETHYLCELLULOSE OPHTH DROPS EACHEYE PRN (18:38)
[2020-07-05] MEDS: ARIPiprazole 5 MG TABLET PO SCH (21:10)
[2020-07-05] MEDS: [UNRECOGNIZED DRUG - OTHER] TOP SCH ×2 (21:14→22:55)
[2020-07-06] MEDS: SODIUM CHLORIDE FLUSH 0.9% 10 ML SYRINGE IVP SCH ×2 (00:36→08:31)
[2020-07-06] MEDS: SODIUM CHLORIDE FLUSH 0.9% 10 ML SYRINGE IVP PRN ×3 (00:36→04:19)
[2020-07-06] MEDS: ACETAMINOPHEN 500 MG TABLET PO PRN ×2 (00:41→08:30)
[2020-07-06] MEDS: TRIAMCINOLONE 0.1% CREAM 15 GM TUBE TOP SCH (06:29)
[2020-07-06 07:41] LABS: BASOPHILS % (AUTO) 0.5 %; EOSINOPHILS # (AUTO) 0.3 10^3/uL (0.0-0.7); EOSINOPHILS % (AUTO) 4.9 %; HGB - HEMOGLOBIN 9.1 g/dL (12.0-16.0); LYMPHOCYTES # (AUTO) 1.9 10^3/uL (1.5-3.5); LYMPHOCYTES % (AUTO) 29.2 %; MEAN CORPUSCULAR HEMOGLOBIN 31.5 pg (27.0-31.0); MEAN CORPUSCULAR HGB CONC 32.4 g/dL (32.0-36.0); MEAN CORPUSCULAR VOLUME 97.2 fL (81.0-99.0); MEAN PLATELET VOLUME 9.5 fL (7.9-10.8); MONOCYTES # (AUTO) 0.9 10^3/uL (0.0-1.0); NEUTROPHILS # (AUTO) 3.3 10^3/uL (1.5-6.6); NEUTROPHILS % (AUTO) 51.1 %; PLT - PLATELET COUNT 249 10^3/uL (130-450); RED BLOOD COUNT 2.89 10^6/uL (4.20-5.40); RED CELL DISTRIBUTION WIDTH 15.2 % (12.0-15.0); WHITE BLOOD COUNT 6.4 x10^3/uL (4.8-10.8)
[2020-07-06] MEDS: FAMOTIDINE 20 MG TABLET PO SCH (08:29)
[2020-07-06] MEDS: NYSTATIN 500000 UNITS/5 ML UDC PO SCH ×2 (08:29→13:13)
[2020-07-06] MEDS: FERROUS GLUCONATE 324 MG TABLET PO SCH (08:29)
[2020-07-06] MEDS: MIDODRINE 2.5 MG TABLET PO SCH ×2 (08:29→13:13)
[2020-07-06] MEDS: ASPIRIN EC 81 MG TABLET PO SCH (08:30)
[2020-07-06] MEDS: carvediloL 3.125 MG TABLET PO SCH (08:30)
[2020-07-06] MEDS: CITALOPRAM 10 MG TABLET PO SCH (08:30)
[2020-07-06] MEDS: LOSARTAN 50 MG TABLET PO SCH (08:30)
[2020-07-06] MEDS: ethyl alcohoL 62% SWAB AMPULE NAS SCH (08:31)
[2020-07-06] MEDS: polyethylene glycoL 3350 17 GM PACKET PO SCH (08:31)
--- NOTE | 2020-07-06 08:56 | Discharge Plan ---
Discharge Plan Problem Reviewed?: Yes Disposition: Home, Self Care Condition: Stable Prescriptions: oxyCODONE [Roxicodone] 5 mg PO Q6HR PRN #12 tablet PRN Reason: Severe Pain carvediloL [Coreg] 6.25 mg PO BID #30 tablet Losartan [Cozaar] 25 mg PO DAILY #15 tablet Aspirin EC [Ecotrin] 81 mg PO BID #30 tablet Ferrous Gluconate [Fergon] 324 mg PO BIDWM #60 tablet Midodrine 2.5 mg PO TIDWM #40 tablet Diet: Cardiac Activity Restrictions: Activity as Tolerated Shower Restrictions: No Health Concerns: You were hospitalized because of complications of hemorrhage that occurred at the end of your shoulder surgery. You have had a low blood pressure ever since being admitted and many of your cardiac medications are now at lower doses. New prescriptions were sent to your [facility] pharmacy in [place]. Please follow the new medication list with new doses. DO NOT TAKE THE XARELTO FOR 2 WEEKS. When you stop taking the twice a day baby aspirin, you may resume the Xarelto. You were checked to see if you need a new home oxygen order and you do not. You should see Dr. Bryon Villeda in the Orthopedic clinic on July 13. Call [phone], to confirm the time of your appointment. You were referred to have outpatient Physical Therapy rehab and Occupational Therapy rehab. Please follow any restrictions for showering or driving, as given to you by the Orthopedist. Plan of Treatment: As above. Care Goals: Improvement in symptoms and stabilization are the goals. Assessment: Patient understands and is agreeable with the plan. Follow-Up Care: Outpatient Rehab - PT, Outpatient Rehab - OT No Smoking: If you smoke, Please STOP! Call for help. Follow-up with: Alexander Arreola DO [Primary Care Provider] -
[2020-07-06] MEDS: [UNRECOGNIZED DRUG - OTHER] TOP SCH (08:57)
[2020-07-06] MEDS ORDERED: FUROSEMIDE 40 MG TABLET PO SCH (09:00)
[2020-07-06 09:18] LABS: CALCIUM 8.2 mg/dL (8.5-10.3); CREATININE 0.9 mg/dL (0.4-1.0)
--- NOTE | 2020-07-06 09:23 | DISCHARGE SUMMARY ---
Discharge Summary Admit Date: 07/01/20 Discharge Date: 07/06/20 Discharging Provider: Dr Debra Hook Primary Care Provider: Dr Alexander Arreola Code Status: Attempt Resuscitation Condition at Discharge: Stable Discharge Disposition: 01 Home, Self Care - HPI History of Present Illness: This is an 84-year-old white female with a history of prior Afib on Xarelto, cardiomyopathy with EF of 45% by Echo done here about 8 months ago, history of left bundle branch block, anemia with hemoglobin chronically about 8. She underwent outpatient clearance to have elective left shoulder surgery and did undergo successful surgery here on 07/01/20. In the final moments of surgery, the Orthopedist nicked the left axillary artery and the General Surgeon was called in to assist with it's repair. It was estimated she lost 1L of blood. She became hypotensive for about 90 min. She was extubated successfully. In the PACU, she was in hemorrhagic shock, with systolic BP 49mmHg, and the Orthopedist requested management from the Hospitalists and admission to the ICU in critical condition on the Hospitalist Team. She was pale, but conversant and mentating. - CONSULTS | PROCEDURES Consultations: Dr Bryon Villeda, Dr Arnie Vargas Procedures: Left shoulder arthroplasty, Left axillary artery repair after laceration - HOSPITAL COURSE Hospital Course: (1) Postoperative hemorrhagic shock She was resuscitated with iv saline, iv Albumen, 2U of blood and required iv Levophed to maintain BPs of 90mmHg. The Hgb post-op was 5. Levophed was required for several days. She needed 2 more units of blood at mid- hospitalization and another 1U on 07/05. Her Xarelto was not dosed. Her b.i.d. Aspirin order, for orthopedic DVT prophylaxis, was not started for 48 hours. By 07/04 she was able to be OOB to participate with PT and OT. (2) S/P arthroplasty of left shoulder The Orthopedic surgeon followed along, advised when to proceed more aggressively with PT and OT. She was discharged home, and will attend outpatient PT and OT here. She is to see Dr Villeda in Ortho Clinic in 1 week after discharge. (3) Axillary artery laceration The General Surgeon did follow-up of the left arm arterial flow. She was started on slow resumption of left arm activity with PT and OT. At discharge, she was advised not to take the Xarelto plus the (?2 weeks of) b.i.d. Aspirin, as ordered by Orthopedics, but to resume Xarelto after the Aspirin dosing is finished. (4) Anemia As described in #1, she received a total of 5U of blood this admission for sivakumar atment for shock and symptomatic anemia. She was started on oral iron replacement therapy and discharged on this. Her Hgb at discharge was 9.1. (5) Hypotension After IV Levophed was weaned to off, throughout this hospitalization, she had blood pressures of 80-100 systolic. She was not orthostatic. Midodrine needed to be started. Her usual doses of cardiac meds were resumed at lower doses and in a staggered fashion. I suspect that she chronically has "soft" blood pressure, since she takes several meds that drop her blood pressure, and yet she was warm and dry and mentating with blood pressures of 80 mmHg. She was discharged home on Midodrine. (6) MELISSA (acute kidney injury) She had post-op ATN from hemorrhagic shock. Her BUN/creat was 20/1.1 after surgery, then the next day elena to 26/1.2, then recovered>> 17/0.8>> 12/0.7>> 12/0.8 and was 12/0.9 on the day of discharge. (7) Cardiomyopathy Troponins were neg for an NV, post-op. Due to hypotension and then "soft" blood pressures this entire admission, her carvedilol, lisinopril and diuretics were on hold and she did not have a CHF exacerbation. Midodrine had to be started for improving blood pressure, so that IV Levophed did not have to be restarted. An Echo was done this admission and showed preserved LVEF. Her usual doses of cardiac meds were resumed at lower doses and in a staggered fashion. On the day before discharge, she did complain of shortness of breath and a CXR did show mild CHF. We then resumed her diuretic as well. (8) SOB on exertion On the day before discharge, she did complain of SOB, and her nurse heard wheezing with ambulation. She desaturated on room air after the walk, down to 86%. A CXR did show mild CHF. The patient had had many liters positive in fluid balance since being admitted, as treatment for shock. This fluid overload, postponed her discharge by a day. We resumed her diuretic. On the day of discharge, she underwent an oximetry walk test with Resp Therapist, and did not desaturate with exertion, and did not need a home oxygen order. (9) Paroxysmal A-fib She was in sinus rhythm during this entire hospitalization. Xarelto was stopped because of the hemorrhage. Aspirin twice daily was started for DVT prophylaxis, as ordered by Orthopedics. (10) Depression Her home meds were resumed for treating this. - ALLERGIES Allergies/Adverse Reactions: Allergies Allergy/AdvReac Type Severity Reaction Status Date / Time Penicillins Allergy Unknown Rash Verified 08/03/16 14:59 lisinopril Allergy Respiratory Verified 08/03/16 14:59 oxycodone [Oxycodone] Allergy Unknown Verified 06/23/20 10:11 - MEDICATIONS Home Medications: Ambulatory Orders Medication Instructions Recorded Confirmed Lorazepam 0.5 mg PO QPM PRN 12/10/12 06/23/20 Omeprazole [PriLOSEC] 20 mg PO DAILY 12/10/12 06/23/20 Citalopram [CeleXA] 20 mg PO DAILY 08/03/16 06/23/20 Furosemide [Lasix] 40 mg PO DAILY 08/03/16 06/23/20 Spironolactone 12.5 mg PO DAILY 08/03/16 06/23/20 Aripiprazole [Abilify] 10 mg PO QPM 06/23/20 06/23/20 Nitroglycerin [Nitrostat] 0.4 mg SL Q5MIN PRN 06/23/20 06/23/20 Triamcinolone Acetonide 0.1% 1 applic TP TID 06/23/20 06/23/20 [Triamcinolone Acetonide] Aspirin EC [Ecotrin] 81 mg PO BID #30 tablet 07/06/20 Ferrous Gluconate [Fergon] 324 mg PO BIDWM #60 tablet 07/06/20 Losartan [Cozaar] 25 mg PO DAILY #15 tablet 07/06/20 Midodrine 2.5 mg PO TIDWM #40 tablet 07/06/20 carvediloL [Coreg] 6.25 mg PO BID #30 tablet 12/07/20 oxyCODONE [Roxicodone] 5 mg PO Q6HR PRN #12 tablet 07/06/20 - PHYSICAL EXAM AT DISCHARGE General Appearance: positive: No acute distress, Alert Eyes Bilateral: positive: Normal inspection, EOMI ENT: positive: ENT inspection nml, No signs of dehydration Neck: positive: Nml inspection, No JVD Respiratory: positive: No respiratory distress, Breath sounds nml Cardiovascular: positive: Regular rate & rhythm, No murmur Peripheral Pulses: positive: 1+ Abdomen: positive: Non-tender, Nml bowel sounds, No distention Skin: positive: Warm, Dry, Pallor Extremities: positive: No pedal edema, Other (L upper arm had bandage at site, redness and mild swelling above and below.) - LABS Result Diagrams: 07/06/20 04:10 07/06/20 04:10 - DIAGNOSTIC IMAGING Diagnostic Imaging Results: Final report reviewed - FOLLOW UP Follow Up: See PCP per routine, and see Dr Villeda in Ortho Clinic on 07/13/20. - TIME SPENT Time Spent in Discharge (Minutes): 60
[2020-07-06 14:29] VITALS: BP 112/65
== END 2020-07-06 14:15 | disposition home or self-care (01) | DRG 483 ==
LOC: MS2 06:16 → MS3 07:21 → ICU 14:21
PROVIDERS: ADMIT Orthopaedic Surgery; ATTEND Internal Medicine
PROC: 03Q Upper Arteries, Repair (ICD-10-PCS; 2020-07-01)
PROC: 02HV33Z Insertion of Infusion Device into Superior Vena Cava, Percutaneous Approach (ICD-10-PCS; 2020-07-01)
PROC: B548ZZA Ultrasonography of Superior Vena Cava, Guidance (ICD-10-PCS; 2020-07-01)
PROC: 0RRK0JZ Replacement of Left Shoulder Joint with Synthetic Substitute, Open Approach (ICD-10-PCS; principal; 2020-07-01 07:30)
PROC: 30243N1 Transfusion of Nonautologous Red Blood Cells into Central Vein, Percutaneous Approach (ICD-10-PCS; 2020-07-03)
PROC: 30243N1 Transfusion of Nonautologous Red Blood Cells into Central Vein, Percutaneous Approach (ICD-10-PCS; 2020-07-05)
DX: M19.012 Primary osteoarthritis, left shoulder (principal); T81.19XA Other postprocedural shock, initial encounter; I97.52 Accidental puncture and laceration of a circulatory system organ or structure during other procedure; D62 Acute posthemorrhagic anemia; N17.9 Acute kidney failure, unspecified; I43 Cardiomyopathy in diseases classified elsewhere; Y65.8 Other specified misadventures during surgical and medical care; Y92.234 Operating room of hospital as the place of occurrence of the external cause; I48.0 Paroxysmal atrial fibrillation; I11.0 Hypertensive heart disease with heart failure; I50.9 Heart failure, unspecified; I44.7 Left bundle-branch block, unspecified; I95.9 Hypotension, unspecified; F32.9 Major depressive disorder, single episode, unspecified; K21.9 Gastro-esophageal reflux disease without esophagitis; Z79.899 Other long term (current) drug therapy; Z79.01 Long term (current) use of anticoagulants; Z87.891 Personal history of nicotine dependence
CPT/HCPCS: 36415; 71045; 71250; 80048; 80053; 82040; 82533; 83735; 84100; 84443; 84484; 85014; 85018; 85025; 85610; 86850; 86870; 86900; 86901; 86922; 87150; 93005; 93306; 94761; 97110; 97116; 97162; 97165; 97530; A9270; C1713; J0131; J0690; J7120; P9016; P9047; 84132; 86920

== ENCOUNTER 2020-07-09 09:52 | Emergency (ER) | payer MEDICARE, OTHER ==
--- NOTE | 2020-07-09 10:34 | XRAY Report ---
PROCEDURE: Chest 1 View X-Ray INDICATIONS: Chest pain TECHNIQUE: One view of the chest was acquired. COMPARISON: 07/05/2020 FINDINGS: Surgical changes and devices: Fusion hardware in visualized lower cervical spine is again seen. Patie nt is status post left shoulder arthroplasty.. Lungs and pleura: There is trace left pleural effusion with blunting of left costophrenic angle. No f ocal infiltrate or pneumothorax. Mediastinum: Mediastinal contours appear normal. Heart size is mildly enlarged. Bones and chest wall: No suspicious bony lesions. Overlying soft tissues appear unremarkable. IMPRESSION: Trace left pleural effusion. No focal infiltrate or pneumothorax. Reviewed by: El Hernández MD on 07/09/2020 9:33 AM [facility] Approved by: El Hernández MD on 07/09/2020 9:33 AM [facility] Station ID: [id number]
[2020-07-09 10:53] VITALS: BP 115/69
--- NOTE | 2020-07-09 11:15 | ED Physician Documentation ---
History of Present Illness - Stated complaint Stated Complaint: CHEST DISCOMFORT - Chief complaint Chief Complaint: Cardiac - History obtained from History obtained from: Patient - Additonal information Additional information: Patient comes emergency department complaining of palpitations this morning. She states she has a history of A. fib and that her heart was "just flopping all over the place". She states she counted a heart rate of roughly 101, but is not sure if she counted correctly. She states she is on a couple of medications for her A. fib and that these were adjusted up while she was in the hospital recently for shoulder surgery. She states she is off her Xarelto until 2 weeks after her surgery. The patient denies any chest pain, shortness of breath, or lightheadedness. She states that she feels pretty good now. No vomiting or diarrhea. No other complaints at this time. Review of Systems Ten Systems: 10 systems reviewed and negative Constitutional: reports: Reviewed and negative Eyes: reports: Reviewed and negative Ears: reports: Reviewed and negative Nose: reports: Reviewed and negative Throat: reports: Reviewed and negative Cardiac: reports: Palpitations. denies: Chest pain / pressure Respiratory: reports: Reviewed and negative. denies: Dyspnea GI: reports: Reviewed and negative : reports: Reviewed and negative Skin: reports: Reviewed and negative Musculoskeletal: reports: Reviewed and negative Neurologic: reports: Reviewed and negative. 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 HEENT: Tonsil/Adenoidectomy - Present Medications Home Medications: Ambulatory Orders Medication Instructions Recorded Confirmed Lorazepam 0.5 mg PO QPM PRN 12/10/12 06/23/20 Omeprazole [PriLOSEC] 20 mg PO DAILY 12/10/12 06/23/20 Citalopram [CeleXA] 20 mg PO DAILY 08/03/16 06/23/20 Furosemide [Lasix] 40 mg PO DAILY 08/03/16 06/23/20 Spironolactone 12.5 mg PO DAILY 08/03/16 06/23/20 Aripiprazole [Abilify] 10 mg PO QPM 06/23/20 06/23/20 Nitroglycerin [Nitrostat] 0.4 mg SL Q5MIN PRN 06/23/20 06/23/20 Triamcinolone Acetonide 0.1% 1 applic TP TID 06/23/20 06/23/20 [Triamcinolone Acetonide] Aspirin EC [Ecotrin] 81 mg PO BID #30 tablet 07/06/20 Ferrous Gluconate [Fergon] 324 mg PO BIDWM #60 tablet 07/06/20 Losartan [Cozaar] 25 mg PO DAILY #15 tablet 07/06/20 Midodrine 2.5 mg PO TIDWM #40 tablet 07/06/20 carvediloL [Coreg] 6.25 mg PO BID #30 tablet 07/06/20 oxyCODONE [Roxicodone] 5 mg PO Q6HR PRN #12 tablet 07/06/20 - Allergies Allergies/Adverse Reactions: Allergies Allergy/AdvReac Type Severity Reaction Status Date / Time Penicillins Allergy Unknown Rash Verified 07/09/20 10:07 lisinopril Allergy Respiratory Verified 07/09/20 10:07 oxycodone [Oxycodone] Allergy Unknown Verified 07/09/20 10:07 - Social History Does the pt smoke?: No Smoking Status: Never smoker Does the pt drink ETOH?: Yes Does the pt have substance abuse?: No PD ED PE NORMAL - Vitals Vital signs reviewed: Yes - General General: Alert and oriented X 3, No acute distress, Well developed/nourished - HEENT HEENT: Atraumatic, PERRL, EOMI, Moist mucous membranes - Neck Neck: Supple, no meningeal sign - Cardiac Cardiac: RRR, No murmur, Strong equal pulses - Respiratory Respiratory: No respiratory distress, Clear bilaterally - Abdomen Abdomen: Soft, Non tender, Non distended - Derm Derm: Normal color, Warm and dry, No rash - Extremities Extremities: No deformity, No edema, No calf tenderness / cord - Neuro Neuro: Alert and oriented X 3, Other (Grossly normal) - Psych Psych: Normal mood, Normal affect Results - Vitals Vitals: Oxygen O2 Source Room air - EKG (time done) 1000 Rate: Rate (enter#) (69) Rhythm: NSR [place]: Normal Intervals: Normal OR QRS: Normal Ischemia: Normal ST segments Compare to prior EKG: Old EKG unavailable Computer interpretation: Agree with computer PD MEDICAL DECISION MAKING - ED course Complexity details: considered differential, d/w patient ED course: Upon my evaluation of the patient, she was actually found to be in normal sinus rhythm on the latter. I discussed with the patient that it appears she is afflicted by a paroxysmal atrial fibrillation, and that while in A. fib, it can be expected that her heart rate will be irregular. We have discussed the risks of clot formation if she stays in atrial fib, and we have also discussed that rate control can be an issue with A. fib. However, at this point in time, she is converted back to a normal sinus rhythm. I have offered to check electrolytes as part of basic laboratory evaluation to see if there are any particular triggers causing the patient's A. fib; however, the patient states she is feeling fine and now that her heart is back in a normal sinus rhythm, she would rather just take the medications she has been prescribed for A. fib and follow-up with her doctor unless something more emergent comes up. We have discussed how to check her pulse at home and get an accurate number of beats per minute. We have discussed the usual indications for return. Departure - Departure Disposition: 01 Home, Self Care Clinical Impression: Paroxysmal atrial fibrillation Condition: Stable Instructions: ED Afib Comments: Your heart rate has been normal throughout your stay in the emergency department. You have been in and out of atrial fibrillation, but are currently in a normal sinus rhythm. There is no evidence of any of the complications of atrial fibrillation, namely an abnormally fast heart rate. At this point in time, it is important that you continue on your medications. You should not resume your Xarelto at this point until the appropriate amount of time is passed since your surgery, as you are instructed. If you begin to have chest pain or shortness of breath, or as we discussed, if your heart rate over a minute exceeds 100 bpm, then you will need to return to the emergency department. Otherwise, please follow-up with your primary care physician as planned. Discharge Date/Time: 07/09/20 11:32
== END 2020-07-09 11:32 | disposition home or self-care (01) ==
LOC: ED 09:52
DX: I48.0 Paroxysmal atrial fibrillation (principal); I44.7 Left bundle-branch block, unspecified; Z98.890 Other specified postprocedural states
CPT/HCPCS: 80053; 83690; 84484; 85025; 93005; 99284

== ENCOUNTER 2020-08-06 07:00 | Outpatient (CLI) | payer MEDICARE, OTHER ==
--- NOTE | 2020-08-06 14:13 | XRAY Report ---
PROCEDURE: Shoulder 3 View LT INDICATIONS: TOTAL SHOULDER ARTHROPLASTY TECHNIQUE: 3 views of the shoulder were acquired. COMPARISON: None. FINDINGS: Bones: No status post left partial shoulder arthroplasty with glenoid resurfacing. No acute complica ting hardware feature or [place] bone fracture demonstrated. Mild degenerative changes in the acromioc lavicular joint. Soft tissues: No suspicious soft tissue calcifications. IMPRESSION: No acute calcaneal hardware feature status post left partial shoulder arthroplasty with glenoid resurfacing. Reviewed by: Justo Zazueta MD on 08/06/2020 2:11 PM PST Approved by: Justo Zazueta MD on 08/06/2020 2:11 PM PST Station ID: [id number]
== END 2020-08-06 23:59 | disposition home or self-care (01) ==
LOC: DI.N 07:00
PROVIDERS: ATTEND Orthopaedic Surgery
DX: M19.012 Primary osteoarthritis, left shoulder (principal); Z96.619 Presence of unspecified artificial shoulder joint

== ENCOUNTER 2020-08-26 16:26 | Emergency (ER) | payer MEDICARE, OTHER ==
[2020-08-26 16:34] VITALS: BP 148/104
--- NOTE | 2020-08-26 16:41 | ED Physician Documentation ---
PD HPI LOWER EXT INJURY - Stated complaint Stated Complaint: LT ANKLE PX - Chief complaint Chief Complaint: Ext Problem - History obtained from History obtained from: Patient - Additional information Additional information: 85-year-old woman who a couple of months ago had a left shoulder replacement but has been healing well. Also has a history of atrial fibrillation, joint issues. She is on Xarelto. Over the last 4 days or so she has had increasing but still mild pain of the left ankle. There is no trauma. 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 HEENT: Tonsil/Adenoidectomy - Present Medications Home Medications: Ambulatory Orders Medication Instructions Recorded Confirmed Lorazepam 0.5 mg PO QPM PRN 12/10/12 06/23/20 Omeprazole [PriLOSEC] 20 mg PO DAILY 12/10/12 06/23/20 Citalopram [CeleXA] 20 mg PO DAILY 08/03/16 06/23/20 Furosemide [Lasix] 40 mg PO DAILY 08/03/16 06/23/20 Spironolactone 12.5 mg PO DAILY 08/03/16 06/23/20 Aripiprazole [Abilify] 10 mg PO QPM 06/23/20 06/23/20 Nitroglycerin [Nitrostat] 0.4 mg SL Q5MIN PRN 06/23/20 06/23/20 Triamcinolone Acetonide 0.1% 1 applic TP TID 06/23/20 06/23/20 [Triamcinolone Acetonide] Aspirin EC [Ecotrin] 81 mg PO BID #30 tablet 07/06/20 Ferrous Gluconate [Fergon] 324 mg PO BIDWM #60 tablet 07/06/20 Losartan [Cozaar] 25 mg PO DAILY #15 tablet 07/06/20 Midodrine 2.5 mg PO TIDWM #40 tablet 07/06/20 carvediloL [Coreg] 6.25 mg PO BID #30 tablet 07/06/20 oxyCODONE [Roxicodone] 5 mg PO Q6HR PRN #12 tablet 07/06/20 cephALEXin [Keflex] 500 mg PO Q6H #28 capsule 08/26/20 - Allergies Allergies/Adverse Reactions: Allergies Allergy/AdvReac Type Severity Reaction Status Date / Time Penicillins Allergy Unknown Rash Verified 08/26/20 16:28 lisinopril Allergy Respiratory Verified 08/26/20 16:28 oxycodone [Oxycodone] Allergy Unknown Verified 08/26/20 16:28 - Social History Does the pt smoke?: No Smoking Status: Never smoker Does the pt drink ETOH?: Yes Does the pt have substance abuse?: No PD ED PE NORMAL - Vitals Vital signs reviewed: Yes - General General: Alert and oriented X 3, No acute distress - Derm Derm: Normal color, Warm and dry - Extremities Extremities: Other (Mild swelling of distal L calf and ankle with mild redness) Results - Vitals Vitals: Vital Signs - 24 hr 08/26/20 16:29 Temperature 36.9 C Heart Rate 68 Respiratory 18 Rate Blood Pressure 148/104 H O2 Saturation 97 Oxygen O2 Source Room air - Labs Labs: Laboratory Tests 08/26/20 08/26/20 16:54 16:54 WBC 8.2 RBC 3.47 L Hgb 10.5 L Hct 33.9 L MCV 97.7 MCH 30.3 MCHC 31.0 L RDW 13.4 Plt Count 366 MPV 8.6 Neut # (Auto) 5.6 Lymph # (Auto) 1.7 [place] # (Auto) 0.7 Eos # (Auto) 0.2 Baso # (Auto) 0.0 Absolute Nucleated RBC 0.00 Nucleated RBC % 0.0 Sodium 141 Potassium 3.6 Chloride 97 L Carbon Dioxide 31 Anion Gap 13.0 BUN 18 Creatinine 0.9 Estimated GFR (MDRD) 60 L Glucose 121 H Calcium 9.3 Departure - Departure Disposition: 01 Home, Self Care Clinical Impression: Cellulitis Qualifiers: Site of cellulitis: extremity Site of cellulitis of extremity: lower extremity Laterality: left Qualified Code(s): L03.116 - Cellulitis of left lower limb Condition: Good Record reviewed to determine appropriate education?: Yes Instructions: Cellulitis Dc Prescriptions: cephALEXin [Keflex] 500 mg PO Q6H #28 capsule Comments: You were seen today for left ankle swelling. There is some redness there and it looks like probably early cellulitis. There was no blood clot on the ultrasound your blood work looks good. Elevate is much as possible. You also have what is called a Vu's cyst on the ultrasound which is a fluid collection behind the knee. You can follow-up with your primary care physician for this and consider referral to orthopedics if it is bothering you. Return if worsening.
[2020-08-26 16:59] LABS: BASOPHILS % (AUTO) 0.5 %; EOSINOPHILS # (AUTO) 0.2 10^3/uL (0.0-0.7); EOSINOPHILS % (AUTO) 2.1 %; HGB - HEMOGLOBIN 10.5 g/dL (12.0-16.0); LYMPHOCYTES # (AUTO) 1.7 10^3/uL (1.5-3.5); MEAN CORPUSCULAR HEMOGLOBIN 30.3 pg (27.0-31.0); MEAN CORPUSCULAR VOLUME 97.7 fL (81.0-99.0); MEAN PLATELET VOLUME 8.6 fL (7.9-10.8); MONOCYTES # (AUTO) 0.7 10^3/uL (0.0-1.0); MONOCYTES % (AUTO) 8.1 %; NEUTROPHILS # (AUTO) 5.6 10^3/uL (1.5-6.6); NEUTROPHILS % (AUTO) 68.1 %; PLT - PLATELET COUNT 366 10^3/uL (130-450); RED BLOOD COUNT 3.47 10^6/uL (4.20-5.40); RED CELL DISTRIBUTION WIDTH 13.4 % (12.0-15.0); WHITE BLOOD COUNT 8.2 x10^3/uL (4.8-10.8)
[2020-08-26 17:08] LABS: CALCIUM 9.3 mg/dL (8.5-10.3); CREATININE 0.9 mg/dL (0.4-1.0)
[2020-08-26] MEDS ORDERED: cephALEXin 250 MG CAPSULE PO STA (18:12)
--- NOTE | 2020-08-26 18:26 | Ultrasound Report ---
PROCEDURE: Duplex Ext Veins Left INDICATIONS: LLE pain TECHNIQUE: Real-time imaging, as well as color and pulse Doppler interrogation, were performed of the lower extr emity deep veins from the inguinal ligament to the popliteal fossa. COMPARISON: None. FINDINGS: The deep veins are normally compressible, and free of intraluminal thrombus. Color and pu lse Doppler demonstrate normal phasic intraluminal flow. There is normal augmentation response to di stal compression maneuver. IMPRESSION: 1. No sonographic evidence of deep venous thrombosis in the left lower extremity. 2. 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 Reviewed by: Rolando Ma MD on 08/26/2020 6:25 PM PST Approved by: Rolando Ma MD on 08/26/2020 6:25 PM PST Station ID: [id number]
== END 2020-08-26 18:30 | disposition home or self-care (01) ==
LOC: ED 16:26
DX: L03.116 Cellulitis of left lower limb (principal); M71.22 Synovial cyst of popliteal space [Baker], left knee; I48.91 Unspecified atrial fibrillation; Z79.01 Long term (current) use of anticoagulants; Z96.612 Presence of left artificial shoulder joint
CPT/HCPCS: 36415; 80048; 85025; 93971; 99283; 99284; A9270

== ENCOUNTER 2020-10-01 08:00 | Outpatient (CLI) | payer MEDICARE, OTHER ==
[2020-10-01 17:57] LABS: BASOPHILS % (AUTO) 0.6 %; EOSINOPHILS # (AUTO) 0.2 10^3/uL (0.0-0.7); EOSINOPHILS % (AUTO) 3.2 %; HCT - HEMATOCRIT 37.2 % (37.0-47.0); HGB - HEMOGLOBIN 11.4 g/dL (12.0-16.0); LYMPHOCYTES # (AUTO) 1.7 10^3/uL (1.5-3.5); LYMPHOCYTES % (AUTO) 25.2 %; MEAN CORPUSCULAR HEMOGLOBIN 29.7 pg (27.0-31.0); MEAN CORPUSCULAR HGB CONC 30.6 g/dL (32.0-36.0); MEAN CORPUSCULAR VOLUME 96.9 fL (81.0-99.0); MEAN PLATELET VOLUME 9.6 fL (7.9-10.8); MONOCYTES # (AUTO) 0.7 10^3/uL (0.0-1.0); MONOCYTES % (AUTO) 10.3 %; NEUTROPHILS % (AUTO) 60.4 %; PLT - PLATELET COUNT 340 10^3/uL (130-450); RED BLOOD COUNT 3.84 10^6/uL (4.20-5.40); RED CELL DISTRIBUTION WIDTH 13.4 % (12.0-15.0); WHITE BLOOD COUNT 6.6 x10^3/uL (4.8-10.8)
[2020-10-01 19:05] LABS: % IRON SATURATION 19 % (20-50); ALBUMIN/GLOBULIN RATIO 1.2 (1.0-2.2); ALKALINE PHOSPHATASE 71 IU/L (42-121); ALT ALANINE AMINOTRANSFERASE 12 IU/L (10-60); AST ASPARTATE AMINOTRANSFERASE 18 IU/L (10-42); BILIRUBIN,TOTAL 0.6 mg/dL (0.2-1.0); BUN - BLOOD UREA NITROGEN 29 mg/dL (6-20); CALCIUM 9.2 mg/dL (8.5-10.3); CARBON DIOXIDE - CO2 29 mmol/L (21-32); CHLORIDE 103 mmol/L (101-111); CHOL/HDL RATIO 3.1 (<4.4); CHOLESTEROL 175 mg/dL; GFR - MDRD 53 (>89); GLUCOSE 92 mg/dL (70-100); HDL CHOLESTEROL 56 mg/dL; IRON 58 ug/dL (28-170); LDL CHOLESTEROL,CALCULATED 100 mg/dL; LDL/HDL RATIO 1.8 (<4.4); POTASSIUM 4.3 mmol/L (3.5-5.0); SODIUM 140 mmol/L (135-145); TOTAL IRON BINDING CAPACITY 312 ug/dL (250-450); TOTAL PROTEIN 7.4 g/dL (6.7-8.2); TRANSFERRIN 223 mg/dL (192-382); TRIGLYCERIDES 94 mg/dL; URIC ACID 8.1 mg/dL (2.6-7.2); VLDL CHOLESTEROL 19 mg/dL
[2020-10-01 20:15] LABS: ESTIMATED AVERAGE GLUCOSE 105 mg/dL (70-100); HEMOGLOBIN A1c% 5.3 % (4.27-6.07)
== END 2020-10-01 23:59 | disposition home or self-care (01) ==
LOC: LAB.WCP 08:00
PROVIDERS: ATTEND Family Medicine
DX: D64.9 Anemia, unspecified (principal); Z79.899 Other long term (current) drug therapy; M10.9 Gout, unspecified
CPT/HCPCS: 36415; 80053; 80061; 82607; 82728; 83036; 83540; 83721; 84466; 84550; 85025

== ENCOUNTER 2020-11-23 14:48 | Outpatient (CLI) | payer MEDICARE, OTHER ==
--- NOTE | 2020-11-23 16:01 | XRAY Report ---
PROCEDURE: Foot 3 View RT INDICATIONS: PAIN EDEMA TECHNIQUE: 3 views of the foot were acquired. COMPARISON: None FINDINGS: Bones: No fractures or dislocations. There are what appear to be periarticular erosions at the media l first metatarsal head, in a pattern suggestive of gout. No overlying soft tissue ulceration is seen .. Soft tissues: No tibiotalar joint effusion. Achilles tendon appears normal. IMPRESSION: Suspect gout at the medial first metatarsal head. Periarticular erosions are present in that area med ially. No additional erosions are seen elsewhere. Reviewed by: Michael Lyle MD on 11/23/2020 4:00 PM PDT Approved by: Michael Lyle MD on 11/23/2020 4:00 PM PDT Station ID: [id number]
== END 2020-11-23 14:49 | disposition home or self-care (01) ==
LOC: DI 14:48
PROVIDERS: ATTEND Podiatrist
DX: R93.6 Abnormal findings on diagnostic imaging of limbs (principal)

== ENCOUNTER 2020-12-01 08:00 | Outpatient (CLI) | payer MEDICARE, OTHER ==
[2020-12-01 17:54] LABS: BASOPHILS % (AUTO) 0.7 %; EOSINOPHILS # (AUTO) 0.2 10^3/uL (0.0-0.7); EOSINOPHILS % (AUTO) 3.4 %; HCT - HEMATOCRIT 37.6 % (37.0-47.0); HGB - HEMOGLOBIN 11.6 g/dL (12.0-16.0); LYMPHOCYTES # (AUTO) 1.6 10^3/uL (1.5-3.5); MEAN CORPUSCULAR HEMOGLOBIN 29.5 pg (27.0-31.0); MEAN CORPUSCULAR HGB CONC 30.9 g/dL (32.0-36.0); MEAN CORPUSCULAR VOLUME 95.7 fL (81.0-99.0); MEAN PLATELET VOLUME 9.9 fL (7.9-10.8); MONOCYTES # (AUTO) 0.6 10^3/uL (0.0-1.0); MONOCYTES % (AUTO) 10.2 %; NEUTROPHILS # (AUTO) 3.4 10^3/uL (1.5-6.6); NEUTROPHILS % (AUTO) 58.4 %; PLT - PLATELET COUNT 370 10^3/uL (130-450); RED BLOOD COUNT 3.93 10^6/uL (4.20-5.40); RED CELL DISTRIBUTION WIDTH 13.3 % (12.0-15.0); WHITE BLOOD COUNT 5.8 x10^3/uL (4.8-10.8)
[2020-12-01 18:07] LABS: BUN - BLOOD UREA NITROGEN 25 mg/dL (6-20); CALCIUM 9.6 mg/dL (8.5-10.3); CARBON DIOXIDE - CO2 31 mmol/L (21-32); CHLORIDE 98 mmol/L (101-111); CREATININE 1.1 mg/dL (0.4-1.0); GFR - MDRD 47 (>89); GLUCOSE 73 mg/dL (70-100); POTASSIUM 4.3 mmol/L (3.5-5.0); SODIUM 137 mmol/L (135-145)
[2020-12-01 18:40] LABS: CRP - C-REACTIVE PROTEIN < 1.0 mg/dL (0-1.0)
== END 2020-12-01 23:59 | disposition home or self-care (01) ==
LOC: LAB.WCP 08:00
PROVIDERS: ATTEND Family Medicine
DX: M10.00 Idiopathic gout, unspecified site (principal); Z79.899 Other long term (current) drug therapy; D64.9 Anemia, unspecified
CPT/HCPCS: 36415; 80048; 84550; 85025; 85651; 86140

== ENCOUNTER 2021-06-06 08:00 | Outpatient (CLI) | payer MEDICARE, OTHER ==
--- NOTE | 2021-06-06 15:46 | XRAY Report ---
PROCEDURE: Knee 4 View RT INDICATIONS: FALL, R KNEE PX TECHNIQUE: 4 views of the right knee(s) were acquired. COMPARISON: None. FINDINGS: Bones: No fractures or dislocations. No suspicious bony lesions. Chronic appearing bony prominence can be seen involving the tibial tuberosity. There is mild medial femorotibial joint space narrowing, with associated degenerative change with sub chondral sclerosis and osteophyte formation. Soft tissues: There is a mild to moderate joint effusion. No suspicious soft tissue calcifications. IMPRESSION: Mild to moderate joint effusion. Age-appropriate degenerative changes are seen. Chronic appearing bony protuberance along the tibial tuberosity. If it would be helpful for clinical management decision making, please consider a dedicated, schedule d knee MRI for further evaluation (assuming that there is no contraindication). Reviewed by: Avni Magallanes MD on 06/06/2021 2:45 PM [place] Approved by: Avni Magallanes MD on 06/06/2021 2:45 PM [facility] Station ID: [id number]
== END 2021-06-06 23:59 | disposition home or self-care (01) ==
LOC: DI.N 08:00
PROVIDERS: ATTEND Nurse Practitioner
DX: M25.461 Effusion, right knee (principal); M17.11 Unilateral primary osteoarthritis, right knee; R93.6 Abnormal findings on diagnostic imaging of limbs

== ENCOUNTER 2021-07-12 10:47 | Outpatient (CLI) | payer MEDICARE, OTHER ==
--- NOTE | 2021-07-12 15:25 | XRAY Report ---
PROCEDURE: Knee 4 View RT INDICATIONS: Right knee pain TECHNIQUE: 4 views of the right knee(s) were acquired. COMPARISON: 06/06/2021 right knee radiographs FINDINGS: Moderate osteophytic change in the medial femorotibial compartment addressed by joint space narrowing with marginal osteoarthrosis. Mild osteoarthritic changes in the lateral femorotibial compartment wi th findings suggestive of chondrocalcinosis. Moderate patellofemoral osteoarthritic change with joint space narrowing and marginal osteophytosis in addition to mild medial tilt of the patella. IMPRESSION: Overall moderate tricompartmental knee osteoarthritis Reviewed by: Justo Zazueta MD on 07/12/2021 3:24 PM PST Approved by: Justo Zazueta MD on 07/12/2021 3:24 PM PST Station ID: [id number]
== END 2021-07-12 23:59 | disposition home or self-care (01) ==
LOC: DI.N 10:47
PROVIDERS: ATTEND Orthopaedic Surgery
DX: M17.11 Unilateral primary osteoarthritis, right knee (principal)

== ENCOUNTER 2022-05-17 13:55 | Outpatient (CLI) | payer MEDICARE, OTHER ==
[2022-05-17 14:09] LABS: BASOPHILS % (AUTO) 0.5 %; EOSINOPHILS # (AUTO) 0.2 10^3/uL (0.0-0.7); EOSINOPHILS % (AUTO) 3.8 %; HCT - HEMATOCRIT 38.1 % (37.0-47.0); HGB - HEMOGLOBIN 11.9 g/dL (12.0-16.0); LYMPHOCYTES # (AUTO) 1.5 10^3/uL (1.5-3.5); LYMPHOCYTES % (AUTO) 23.3 %; MEAN CORPUSCULAR HEMOGLOBIN 31.3 pg (27.0-31.0); MEAN CORPUSCULAR HGB CONC 31.2 g/dL (32.0-36.0); MEAN CORPUSCULAR VOLUME 100.3 fL (81.0-99.0); MEAN PLATELET VOLUME 8.6 fL (7.9-10.8); MONOCYTES # (AUTO) 0.7 10^3/uL (0.0-1.0); MONOCYTES % (AUTO) 10.4 %; NEUTROPHILS # (AUTO) 3.9 10^3/uL (1.5-6.6); NEUTROPHILS % (AUTO) 61.7 %; PLT - PLATELET COUNT 334 10^3/uL (130-450); RED CELL DISTRIBUTION WIDTH 13.2 % (12.0-15.0); WHITE BLOOD COUNT 6.3 x10^3/uL (4.8-10.8)
[2022-05-17 14:23] LABS: ALBUMIN 4.3 g/dL (3.2-5.5); ALBUMIN/GLOBULIN RATIO 1.3 (1.0-2.2); ALKALINE PHOSPHATASE 81 IU/L (42-121); ALT ALANINE AMINOTRANSFERASE < 10 IU/L (10-60); AST ASPARTATE AMINOTRANSFERASE 13 IU/L (10-42); BILIRUBIN,TOTAL 0.5 mg/dL (0.2-1.0); BUN - BLOOD UREA NITROGEN 24 mg/dL (6-20); CALCIUM 9.5 mg/dL (8.5-10.3); CARBON DIOXIDE - CO2 29 mmol/L (21-32); CHLORIDE 101 mmol/L (101-111); CREATININE 1.1 mg/dL (0.4-1.0); GFR - MDRD 47 (>89); GLUCOSE 94 mg/dL (70-100); POTASSIUM 4.5 mmol/L (3.5-5.0); SODIUM 137 mmol/L (135-145); TOTAL PROTEIN 7.7 g/dL (6.7-8.2)
== END 2022-05-17 13:56 | disposition home or self-care (01) ==
LOC: LAB 13:55
PROVIDERS: ATTEND Physician Assistant
DX: I10 Essential (primary) hypertension (principal); D64.9 Anemia, unspecified; Z79.899 Other long term (current) drug therapy
CPT/HCPCS: 36415; 80053; 85025

== ENCOUNTER 2022-08-18 08:00 | Outpatient (CLI) | payer MEDICARE, OTHER ==
[2022-08-18 19:13] LABS: FECAL OCCULT BLOOD (FIT) POSITIVE (NEGATIVE)
== END 2022-08-18 23:59 | disposition home or self-care (01) ==
LOC: LAB.N 08:00
PROVIDERS: ATTEND Physician Assistant
DX: R19.4 Change in bowel habit (principal)
CPT/HCPCS: 82274

== ENCOUNTER 2022-09-14 10:08 | Outpatient (CLI) | payer MEDICARE, OTHER ==
[2022-09-14 10:42] LABS: ALBUMIN 3.8 g/dL (3.2-5.5); ALBUMIN/GLOBULIN RATIO 1.2 (1.0-2.2); ALKALINE PHOSPHATASE 65 IU/L (42-121); ALT ALANINE AMINOTRANSFERASE 10 IU/L (10-60); AST ASPARTATE AMINOTRANSFERASE 13 IU/L (10-42); BILIRUBIN,TOTAL 0.4 mg/dL (0.2-1.0); BUN - BLOOD UREA NITROGEN 22 mg/dL (6-20); CALCIUM 9.2 mg/dL (8.5-10.3); CARBON DIOXIDE - CO2 26 mmol/L (21-32); CHLORIDE 105 mmol/L (101-111); CHOL/HDL RATIO 2.6 (<4.4); CHOLESTEROL 165 mg/dL; GFR - MDRD 53 (>89); GLUCOSE 82 mg/dL (70-100); HDL CHOLESTEROL 63 mg/dL; LDL CHOLESTEROL,CALCULATED 87 mg/dL; LDL/HDL RATIO 1.4 (<4.4); POTASSIUM 4.5 mmol/L (3.5-5.0); SODIUM 139 mmol/L (135-145); TOTAL PROTEIN 7.1 g/dL (6.7-8.2); TRIGLYCERIDES 74 mg/dL; URIC ACID 4.7 mg/dL (2.6-7.2); VLDL CHOLESTEROL 15 mg/dL
[2022-09-14 10:54] LABS: THYROID STIMULATING HORMONE 1.85 uIU/mL (0.34-5.60)
== END 2022-09-14 10:09 | disposition home or self-care (01) ==
LOC: LAB 10:08
PROVIDERS: ATTEND Physician Assistant
DX: I10 Essential (primary) hypertension (principal); K92.2 Gastrointestinal hemorrhage, unspecified; Z13.220 Encounter for screening for lipoid disorders; M10.9 Gout, unspecified; D64.9 Anemia, unspecified
CPT/HCPCS: 36415; 80053; 80061; 83721; 84443; 84550

== ENCOUNTER 2023-10-03 17:15 | Outpatient (CLI) | payer MEDICARE, OTHER ==
[2023-10-03 21:18] LABS: BASOPHILS % (AUTO) 0.6 %; EOSINOPHILS # (AUTO) 0.2 10^3/uL (0.0-0.7); EOSINOPHILS % (AUTO) 2.7 %; HCT - HEMATOCRIT 40.8 % (37.0-47.0); HGB - HEMOGLOBIN 12.8 g/dL (12.0-16.0); LYMPHOCYTES # (AUTO) 2.3 10^3/uL (1.5-3.5); LYMPHOCYTES % (AUTO) 34.1 %; MEAN CORPUSCULAR HEMOGLOBIN 29.6 pg (27.0-31.0); MEAN CORPUSCULAR HGB CONC 31.4 g/dL (32.0-36.0); MEAN CORPUSCULAR VOLUME 94.4 fL (81.0-99.0); MEAN PLATELET VOLUME 10.3 fL (7.9-10.8); MONOCYTES # (AUTO) 0.7 10^3/uL (0.0-1.0); MONOCYTES % (AUTO) 10.6 %; NEUTROPHILS # (AUTO) 3.5 10^3/uL (1.5-6.6); NEUTROPHILS % (AUTO) 51.7 %; PLT - PLATELET COUNT 347 10^3/uL (130-450); RED BLOOD COUNT 4.32 10^6/uL (4.20-5.40); RED CELL DISTRIBUTION WIDTH 14.9 % (12.0-15.0); WHITE BLOOD COUNT 6.7 x10^3/uL (4.8-10.8)
[2023-10-03 21:26] LABS: ALBUMIN/GLOBULIN RATIO 1.3 (1.0-2.2); BILIRUBIN,TOTAL 0.4 mg/dL (0.2-1.0); CALCIUM 9.7 mg/dL (8.5-10.3); MAGNESIUM 1.9 mg/dL (1.7-2.3); TOTAL PROTEIN 7.2 g/dL (6.4-8.9)
== END 2023-10-03 17:30 | disposition home or self-care (01) ==
LOC: LAB.N 17:15
PROVIDERS: ATTEND Physician Assistant
DX: R00.1 Bradycardia, unspecified (principal)
CPT/HCPCS: 36415; 80053; 83735; 85025

== ENCOUNTER 2024-03-06 08:00 | Outpatient (CLI) | payer MEDICARE, OTHER | END 2024-03-06 23:59 | disposition home or self-care (01) | LOC: LAB.N 08:00 | PROVIDERS: ATTEND Physician Assistant Medical | DX: L98.9 Disorder of the skin and subcutaneous tissue, unspecified (principal) | CPT/HCPCS: 87070; 87205 ==

== ENCOUNTER 2024-04-23 09:01 | Outpatient (CLI) | payer MEDICARE ==
[2024-04-23 09:14] LABS: BASOPHILS % (AUTO) 0.7 %; EOSINOPHILS # (AUTO) 0.2 10^3/uL (0.0-0.7); HCT - HEMATOCRIT 34.8 % (37.0-47.0); HGB - HEMOGLOBIN 10.7 g/dL (12.0-16.0); LYMPHOCYTES # (AUTO) 2.1 10^3/uL (1.5-3.5); LYMPHOCYTES % (AUTO) 35.1 %; MEAN CORPUSCULAR HEMOGLOBIN 30.3 pg (27.0-31.0); MEAN CORPUSCULAR HGB CONC 30.7 g/dL (32.0-36.0); MEAN CORPUSCULAR VOLUME 98.6 fL (81.0-99.0); MEAN PLATELET VOLUME 9.5 fL (7.9-10.8); MONOCYTES # (AUTO) 0.7 10^3/uL (0.0-1.0); NEUTROPHILS # (AUTO) 3.1 10^3/uL (1.5-6.6); PLT - PLATELET COUNT 304 10^3/uL (130-450); RED BLOOD COUNT 3.53 10^6/uL (4.20-5.40); RED CELL DISTRIBUTION WIDTH 14.8 % (12.0-15.0); WHITE BLOOD COUNT 6.1 x10^3/uL (4.8-10.8)
[2024-04-23 09:28] LABS: ALBUMIN 3.9 g/dL (3.2-5.5); ALBUMIN/GLOBULIN RATIO 1.6 (1.0-2.2); ALKALINE PHOSPHATASE 109 IU/L (42-121); ALT ALANINE AMINOTRANSFERASE 11 IU/L (10-60); AST ASPARTATE AMINOTRANSFERASE 17 IU/L (10-42); BILIRUBIN,TOTAL 0.6 mg/dL (0.2-1.0); BUN - BLOOD UREA NITROGEN 13 mg/dL (6-20); CARBON DIOXIDE - CO2 30 mmol/L (21-32); CHLORIDE 104 mmol/L (101-111); CHOL/HDL RATIO 2.3 (<4.4); CHOLESTEROL 145 mg/dL; CREATININE 0.9 mg/dL (0.6-1.3); GFR - MDRD 59 (>89); GLUCOSE 92 mg/dL (74-104); HDL CHOLESTEROL 62 mg/dL; LDL CHOLESTEROL,CALCULATED 69 mg/dL; LDL/HDL RATIO 1.1 (<4.4); POTASSIUM 4.1 mmol/L (3.5-4.5); SODIUM 138 mmol/L (135-145); TOTAL PROTEIN 6.4 g/dL (6.4-8.9); TRIGLYCERIDES 69 mg/dL; VLDL CHOLESTEROL 14 mg/dL
[2024-04-23 09:43] LABS: THYROID STIMULATING HORMONE 1.83 uIU/mL (0.34-5.60)
== END 2024-04-23 09:02 | disposition home or self-care (01) ==
LOC: LAB 09:01
PROVIDERS: ATTEND Physician Assistant
DX: I10 Essential (primary) hypertension (principal); F32.A Depression, unspecified; Z79.899 Other long term (current) drug therapy; Z13.220 Encounter for screening for lipoid disorders
CPT/HCPCS: 36415; 80053; 80061; 83721; 84443; 85025

== ENCOUNTER 2025-04-11 18:29 | Inpatient (IN) ==
--- NOTE | 2025-04-11 18:34 | ED Physician Documentation ---
History of Present Illness Stated complaint Stated Complaint: GLF Chief complaint Chief Complaint: Trauma Hd/Nk History obtained from History obtained from: Patient and EMS Additonal information Additional information: 89-year-old woman presents by ambulance after a possible fall. She has a history of A-fib on Xarelto, cardiomyopathy and CHF, GI bleeding, and she is on Xarelto. She is a poor historian and EMS relays to me that the family feels she may be developing some cognitive deficits, but no specific diagnosis of that. There is also concern that she may have been drinking tonight. She was found on the ground. Unclear if she fell, syncopized. That said there is no obvious injury and she denies any complaints other than repeatedly asking "why am I here?" Den Coma Scale Assess Eye opening: Spontaneous Verbal response: Confused Motor response: Obeys Commands Total score: 14 Meds/Allgy Home Medications Ambulatory Orders Medication Instructions Recorded Confirmed nitroglycerin 0.4 mg sublingual 0.4 mg sublingual Q5MI N PRN Angina 06/23/20 01/07/25 tablet furosemide 20 mg tablet 20 mg PO DAILY 06/25/2412/29 metoprolol succinate 25 mg 25 mg PO QDAY #30 tabs 12/2901/07/25 tablet,extended release 24 hr omeprazole 20 mg capsule,delayed 20 mg PO QDAY 5 01/07/25 release tramadol 50 mg tablet 50 mg PO QDAY PRN pain (scal e 01/07/25 01/07/25 score 7-10) allopurinol 100 mg tablet 100 mg PO QDAY 02/06/25 spironolactone 25 mg tablet 12.5 mg PO DAILY 02/06/25 fluoxetine 40 mg capsule 40 mg PO QDAY #90 caps 03/05 losartan 25 mg tablet mg PO 03/24/25 rivaroxaban 20 mg tablet (Xarelto) mg PO 03/24/25 Allergies Allergies Allergy/AdvReac Type Severity Reaction Status Date / Time Penicillins Allergy Unknown Rash Verified 04/11/25 18:36 lisinopril Allergy Respiratory Verified 04/11/25 18:36 oxycodone (Oxycodone) Allergy Unknown Verified 04/11/25 18:36 PFS Active Problems All Active Problems (Updated 04/11/25 @ 18:34 by Jr Deluca MD) Chronic anticoagulation (Chronic) Ground-level fall (Acute) Dyspnea (Acute) Colon cancer (Acute) Depression (Acute 11/25/14) Gastro-esophageal reflux disease without esophagitis (Acute 07/04/08) CHF (congestive heart failure) (Acute 11/09/07) Cardiomyopathy (Acute 12/13/07) Left bundle branch block (Acute 04/26/04) Gouty arthropathy (Acute 12/01/20) GI bleeding (Acute 08/19/22) Essential hypertension, benign (Acute 07/04/08) Change in stool habits (Acute 08/16/22) Bradycardia (Acute 10/03/23) Atrial fibrillation (Acute 12/17/12) Anemia, iron deficiency (Acute 12/10/15) Medical History Medical History (Updated 04/11/25 @ 18:34 by Jr Deluca MD) Axillary artery laceration 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 (02/06/20) Osteoarthritis of right knee (07/12/21) Osteoarthritis of hips, bilateral (08/06/10) 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) Cervical spine fracture (10/20/06) Adenocarcinoma of sigmoid colon (10/20/06) Colles' fracture of left radius, subsequent encounter for closed fracture with delayed healing (08/06/18) Left cervical radiculopathy (11/22/19) Tinnitus (05/17/11) Esophageal stricture (12/21/16) Adenoma of duodenum (12/10/15) Surgical History Surgical History History of arthroplasty of left shoulder Status post total shoulder arthroplasty (08/06/20) Family History Family History (Updated 06/24/24 @ 15:09 by Jennifer Rodriguez MA) Father CAD (coronary artery disease) Social History Social History (Updated 03/24/25 @ 13:36 by French Mcmahon PA-C) Smoking Status: Smoker current status unk If you are a former smoker, when did you quit? (Date/Year): 1974 Number of Years Smoked: 15 How many cigarettes a day do you smoke? (20 cigarettes=1 Pk): 20 Second hand tobacco smoke exposure: No Do you dip or chew tobacco?: No Do you vape?: No Patient requests smoking cessation consult: No Initiate information on smoking cessation: No Living arrangement: At home Marital Status: Single Living Condition: Alone Support Person: Yes Living Situation Details: Lives at home alone but has help from friend/ renter/ neighbors Physical Activity: None Level: Independent Do you feel safe in your home environment?: Yes History of physical, verbal, emotional, or financial abuse?: No ETOH Use: Liquor Frequency: Daily Substance Use: denies use Are you sexually active?: No 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 She does have horizontal nystagmus and repetitive questioning. She is in no distress. Eyes PERRL Neck/C-Spine cervical spine nontender and cervical full ROM noted Respiratory normal respiratory effort and clear to auscultation bilaterally Cardiovascular no murmur Neurology no movement abnormality noted, no focal motor deficit noted and GCS calculation - Eye opening: Spontaneous Verbal response: Confused Motor response: Obeys Commands Den Coma Scale total score: 14 Results Vitals Vitals: Vital Signs - 24 hr 04/11/25 18:31 Temperature 36.2 C L Temperature Source Temporal Artery Scan Pulse Rate 57 L Respiratory Rate 20 Blood Pressure 127/68 O2 Saturation 97 O2 Source Room air Pain Intensity 0 Oxygen O2 Source Room air EKG (time done) 1844: EKG releavant findings:: EKG personally interpreted by author of this note. Relevant findings are: Normal sinus rhythm with rate of 53. Short VT interval with left bundle branch block. ST elevation from intraventricular conduction delay. Compared with most recent EKG on the chart dated March 24 of this year she has resolved bigeminy. Other findings are old/chronic. PD Medical Decision Making ED course ED course: She presents after a fall versus syncope versus just getting down on the ground. Is not exactly sure what happened. Out of an abundance of caution, especially given her anticoagulated status I will do CTs of her head and cervical spine. She may be a little drunk to and this is in the setting of potential underlying cognitive deficits. Care to overnight emergency physician at 7 PM shift change pending completion of diagnostics except for EKG which was interpreted by me. Discharge Plan Discharge Condition: Stable Clinical Impression: Ground-level fall, Chronic anticoagulation Prescriptions: No Action allopurinol 100 mg tablet 100 mg PO QDAY spironolactone 25 mg tablet 12.5 mg PO DAILY fluoxetine 40 mg capsule 40 mg PO QDAY Qty: 90 0RF furosemide 20 mg tablet 20 mg PO DAILY nitroglycerin 0.4 MG tablet, sublingual 0.4 mg sublingual Q5MIN PRN (Reason: Angina) metoprolol succinate 25 mg tablet extended release 24 hr 25 mg PO QDAY Qty: 30 2RF tramadol 50 mg tablet 50 mg PO QDAY PRN (Reason: pain (scale score 7-10)) losartan 25 mg tablet PO Xarelto 20 mg tablet PO omeprazole 20 mg capsule,delayed release(DR/EC) 20 mg PO QDAY Print Language: Uzbek Stand Alone Forms: PCP List
[2025-04-11 18:51] LABS: HCT - HEMATOCRIT 30.2 % (37.0-47.0); HGB - HEMOGLOBIN 8.9 g/dL (12.0-16.0); MEAN PLATELET VOLUME 7.9 fL (7.9-10.8); NRBC ABSOLUTE COUNT (AUTO) 0.00 x10^3/uL; NUCLEATED RED BLOOD CELLS AUTO 0.0 /100WBC; PLT - PLATELET COUNT 414 10^3/uL (130-450); RED CELL DISTRIBUTION WIDTH 16.8 % (12.0-15.0)
--- NOTE | 2025-04-11 19:10 | CT Report ---
PROCEDURE: CT Head WO INDICATIONS: poss head inj TECHNIQUE: CT of the head was performed, without intravenous contrast. Reformats: Coronal and sagittal. For radiation dose reduction, the following was used: automated exposure control, adjustment of mA and/or kV according to patient size. COMPARISON: None. FINDINGS: Image quality: Diagnostic CSF spaces: Basal cisterns are patent. Lateral ventricles are symmetric. Volume: Vascular calcifications. Periventricular white matter disease is commonly seen with chronic microangiopathy. Volume loss is present. These findings are mild to moderate . Brain: No acute hematoma. No gross loss of ramsey-white differentiation Craniofacial structures: Mild left ethmoid opacities. IMPRESSION: No acute intracranial hemorrhage identified. Reviewed by: French Coleman MD on 04/11/2025 7:09 PM PDT Approved by: French Coleman MD on 04/11/2025 7:09 PM PDT Station ID: [id number]
--- NOTE | 2025-04-11 19:12 | ED Physician Documentation ---
ED Addendum Addendum Addendum: Patient was handed off to me by Dr. Deluca at shift change at 1900 hrs. Patient notably had a blood alcohol in the 200s. Head CT and C-spine unremarkable from an acute injury standpoint. She does have a new hyponatremia at 125. Per review, patient does live at a assisted living facility/alf and there have been concerns about her mental status over the last several weeks. This hyponatremia is new, and yet to be specified. Discussed with on- call hospitalist who agreed to admit her to hospital for hyponatremia workup, safe discharge planning, or sober reevaluation. Discharge Plan Discharge Patient Disposition: 66 [facility] DC/Xfer Condition: Stable Clinical Impression: Ground-level fall, Chronic anticoagulation Interventions: ED Admission Assessment Last Done: 04/12/25 00:18 Vitals documented within 30 minutes of discharge?: Yes
--- NOTE | 2025-04-11 19:13 | CT Report ---
PROCEDURE: CT Cervical Spine WO INDICATIONS: poss head inj TECHNIQUE: Noncontrast images acquired from the skull base to the T4 level. Sagittal and coronal reformats were then constructed. For radiation dose reduction, the following was used: automated exposure control, adjustment of mA and/or kV according to patient size. COMPARISON: 08/12/2024 FINDINGS: Image quality: Limited by metallic artifact Bones: Partially seen cervical thoracic fusion hardware as before. Moderate cervical spondylosis. No acute displaced fracture or traumatic subluxation. Soft tissues: No apical pneumothorax. There is surrounding metallic artifact, which limits evaluation. IMPRESSION: Moderate cervical spondylosis. No acute displaced fracture or traumatic subluxation. Cervicothoracic fusion hardware again seen. If there is high concern for further derangement, consider MRI evaluation. Reviewed by: French Coleman MD on 04/11/2025 7:12 PM PDT Approved by: French Coleman MD on 04/11/2025 7:12 PM PDT Station ID: [id number]
[2025-04-11 19:24] LABS: ETOH - ETHANOL 214.7 mg/dL
--- OUTSIDE RECORDS SUMMARY | 2025-04-11 19:31 | EXTERNAL MEDICAL SUMMARY RPT | Continuity of Care Document ---
Author Organization [place] Address [address] [place] [phone] Phone Problems date description facility 2025-03-24 14:20 Dyspnea, unspecified [facility] 2025-03-27 10:07 Cough, unspecified [facility] 2025-03-27 10:07 Shortness of breath [facility] 2025-03-27 10:07 Other forms of dyspnea [facility] Results/Labs test date facility value unit notes Result panel 1 NUCLEATED RED BLOOD CELLS AUTO 2025-03-24 14:43 [facility] 0.0 /100wbc (missing) BASOPHILS # (AUTO) 2025-03-24 14:43 [facility] 0.0 10 3/ul (missing) NRBC ABSOLUTE COUNT (AUTO) 2025-03-24 14:43 [facility] 0.00 x10 3/ul (missing) EOSINOPHILS # (AUTO) 2025-03-24 14:43 [facility] 0.1 10 3/ul (missing) BILIRUBIN,TOTAL 2025-03-24 14:43 [facility] 0.4 mg/dl As of January 2023 testing method has changed, this may include reference ranges. MONOCYTES # (AUTO) 2025-03-24 14:43 [facility] 1.0 10 3/ul (missing) CREATININE 2025-03-24 14:43 [facility] 1.0 mg/dl As of January 2023 testing method has changed, this may include reference ranges. ALBUMIN/GLOBULIN RATIO 2025-03-24 14:43 [facility] 1.3 (missing) (missing) LYMPHOCYTES # (AUTO) 2025-03-24 14:43 [facility] 1.3 10 3/ul (missing) CHLORIDE 2025-03-24 14:43 [facility] 100 mmol/l As of January 2023 testing method has changed, this may include reference ranges. BNP - B-NATRIURETIC PEPTIDE 2025-03-24 14:43 [facility] 1094 pg/ml (missing) SODIUM 2025-03-24 14:43 [facility] 133 mmol/l (missing) ALKALINE PHOSPHATASE 2025-03-24 14:43 [facility] 144 iu/l As of January 2023 testing method has changed, this may include reference ranges. BUN - BLOOD UREA NITROGEN 2025-03-24 14:43 [facility] 15 mg/dl As of January 2023 testing method has changed, this may include reference ranges. RED CELL DISTRIBUTION WIDTH 2025-03-24 14:43 [facility] 17.2 % (missing) INR 2025-03-24 14:43 [facility] 2.9 (missing) Oral Anticoagulant Indication INR range Venous Thrombosis, P.E. 2.0 - 3.0 Mechanical Valve 2.5 - 3.5 MEAN CORPUSCULAR HEMOGLOBIN 2025-03-24 14:43 [facility] 24.3 pg (missing) ALT ALANINE AMINOTRANSFERASE 2025-03-24 14:43 [facility] 26 iu/l As of January 2023 testing method has changed, this may include reference ranges. CARBON DIOXIDE - CO2 2025-03-24 14:43 [facility] 27 mmol/l As of January 2023 testing method has changed, this may include reference ranges. HCT - HEMATOCRIT 2025-03-24 14:43 [facility] 27.0 % (missing) MEAN CORPUSCULAR HGB CONC 2025-03-24 14:43 [facility] 29.3 g/dl (missing) GLOBULIN 2025-03-24 14:43 [facility] 3.0 g/dl (missing) RED BLOOD COUNT 2025-03-24 14:43 [facility] 3.25 10 6/ul (missing) ALBUMIN 2025-03-24 14:43 [facility] 3.8 g/dl As of January 2023 testing method has changed, this may include reference ranges. PT - PROTHROMBIN TIME 2025-03-24 14:43 [facility] 31.8 secs (missing) AST ASPARTATE AMINOTRANSFERASE 2025-03-24 14:43 [facility] 33 iu/l As of January 2023 testing method has changed, this may include reference ranges. POTASSIUM 2025-03-24 14:43 [facility] 4.4 mmol/l As of January 2023 testing method has changed, this may include reference ranges. PLT - PLATELET COUNT 2025-03-24 14:43 [facility] 408 10 3/ul (missing) NEUTROPHILS # (AUTO) 2025-03-24 14:43 [facility] 5.3 10 3/ul (missing) GFR - MDRD 2025-03-24 14:43 [facility] 52 (missing) Social History date description facility
[2025-04-11 19:43] LABS: ALT ALANINE AMINOTRANSFERASE 16.0 IU/L (10-60); AST ASPARTATE AMINOTRANSFERASE 22.0 IU/L (10-42); BUN - BLOOD UREA NITROGEN 24.0 mg/dL (6-20); CARBON DIOXIDE - CO2 27.0 mmol/L (21-32); CREATININE 1.0 mg/dL (0.6-1.3); GFR - MDRD 52.0 (>89)
--- NOTE | 2025-04-11 22:09 | HISTORY & PHYSICAL EXAMINATION ---
Chief Complaint Chief Complaint Chief Complaint: Fall History of Present Illness History of Present Illness HPI Comment/Other: 89 y old female with PMH HTN, A fib on anticoagulation was brought in from care facility s/p fall. Pt is consfused and intoxicated at this time and unable to provide meaningful history , so most of history is by ER physician. CT head and C spine showed no acute findings Labs showed Na 125 Family reports cognitive decline Pt is admitted due to Fall, hyponatremia and acute encephalopathy Review of Systems Status of ROS: unobtainable due to medical condition PFSH Active Problems All Active Problems (Updated 04/11/25 @ 22:06 by Antoinette Miller MD) Hyponatremia (Acute) Chronic anticoagulation (Chronic) Ground-level fall (Acute) Dyspnea (Acute) Colon cancer (Acute) Depression (Acute 11/25/14) Gastro-esophageal reflux disease without esophagitis (Acute 07/04/08) CHF (congestive heart failure) (Acute 11/09/07) Cardiomyopathy (Acute 12/13/07) Left bundle branch block (Acute 04/26/04) Gouty arthropathy (Acute 12/01/20) GI bleeding (Acute 08/19/22) Essential hypertension, benign (Acute 07/04/08) Change in stool habits (Acute 08/16/22) Bradycardia (Acute 10/03/23) Atrial fibrillation (Acute 12/17/12) Anemia, iron deficiency (Acute 12/10/15) Medical History Medical History (Updated 04/11/25 @ 22:06 by Antoinette Miller MD) Axillary artery laceration 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 (02/06/20) Osteoarthritis of right knee (07/12/21) Osteoarthritis of hips, bilateral (08/06/10) 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) Cervical spine fracture (10/20/06) Adenocarcinoma of sigmoid colon (10/20/06) Colles' fracture of left radius, subsequent encounter for closed fracture with delayed healing (08/06/18) Left cervical radiculopathy (11/22/19) Tinnitus (05/17/11) Esophageal stricture (12/21/16) Adenoma of duodenum (12/10/15) Surgical History Surgical History History of arthroplasty of left shoulder Status post total shoulder arthroplasty (08/06/20) Family History Family History (Updated 06/24/24 @ 15:09 by Jennifer Rodriguez MA) Father CAD (coronary artery disease) Social History Social History (Updated 03/24/25 @ 13:36 by French Mcmahon PA-C) Smoking Status: Smoker current status unk If you are a former smoker, when did you quit? (Date/Year): 1974 Number of Years Smoked: 15 How many cigarettes a day do you smoke? (20 cigarettes=1 Pk): 20 Second hand tobacco smoke exposure: No Do you dip or chew tobacco?: No Do you vape?: No Patient requests smoking cessation consult: No Initiate information on smoking cessation: No Living arrangement: At home Marital Status: Single Living Condition: Alone Support Person: Yes Living Situation Details: Lives at home alone but has help from friend/ renter/ neighbors Physical Activity: None Level: Independent Do you feel safe in your home environment?: Yes History of physical, verbal, emotional, or financial abuse?: No ETOH Use: Liquor Frequency: Daily Substance Use: denies use Are you sexually active?: No 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5 mg PO DAILY 02/06/25 fluoxetine 40 mg capsule 40 mg PO QDAY #90 caps 03/05 losartan 25 mg tablet mg PO 03/24/25 rivaroxaban 20 mg tablet (Xarelto) mg PO 03/24/25 Allergies Allergies Allergy/AdvReac Type Severity Reaction Status Date / Time Penicillins Allergy Unknown Rash Verified 04/11/25 18:36 lisinopril Allergy Respiratory Verified 04/11/25 18:36 oxycodone (Oxycodone) Allergy Unknown Verified 04/11/25 18:36 Exam Exam Vital Signs: Vital Signs x48h Temp Pulse Resp BP Pulse Ox 04/11/25 20:59 59 L 17 96/48 L 92 04/11/25 20:30 58 L 18 95/46 L 93 04/11/25 20:00 65 18 95/51 L 95 04/11/25 20:00 64 17 96 04/11/25 19:32 55 L 17 96 04/11/25 19:01 51 L 17 114/58 L 96 04/11/25 19:01 51 L 16 114/58 L 94 04/11/25 18:55 54 L 18 122/69 97 04/11/25 18:31 36.2 C L 57 L 20 127/68 97 04/11/25 18:30 68 20 127/68 94 Constitutional no apparent distress HENMT normocephalic Eyes PERRL Chest inspection of chest normal Respiratory breath sounds equal bilaterally Gastrointestinal abdomen normal to inspection Extremities normal to inspection Neurology no focal motor deficit noted Skin no rash Conclusion/Plan Problem List (1) Hyponatremia: Plan: A: Hyponatremia Fall Acute encephalopathy Consfusion HTN A fib Alcohol intoxication Plan: Admit to med surg with tele Start NS @ 75 c/h Monitor serum sodium q6h. Correction of sodium should not exceed more than 0.5 meq per hours Neuro checks q4h Swallow screen Monitor for withdrawl DVT prophylaxic: SCD Full code Pt is admitted as inpatient as more than 2 midnight stay is expected Lab Results 04/11/25 18:49 04/11/25 18:49
[2025-04-11] MEDS: SODIUM CHLORIDE 0.9% 1,000 ML IV STA (23:17)
--- OUTSIDE RECORDS SUMMARY | 2025-04-12 00:14 | EXTERNAL MEDICAL SUMMARY RPT | Continuity of Care Document ---
Author Organization [place] Address [address] [place] [phone] Phone Problems date description facility 2025-03-24 14:20 [...] ranges. BNP - B-NATRIURETIC PEPTIDE 2025-03-24 14:43 [facility] 1094 pg/ml (missing) SODIUM 2025-03-24 14:43 [facility] 133 mmol/l (missing) ALKALINE PHOSPHATASE 2025-03-24 14:43 [facility] 144 iu/l As of January 2023 testing method has changed, this may include reference ranges. BUN - BLOOD UREA NITROGEN 2025-03-24 14:43 [facility] 15 mg/dl As of January 2023 testing method has changed, this may include reference ranges. RED CELL DISTRIBUTION WIDTH 2025-03-24 14:43 [facility] 17.2 % (missing) INR 2025-03-24 14:43 [facility] 2.9 (missing) Oral Anticoagulant Indication INR range Venous Thrombosis, P.E. 2.0 - 3.0 Mechanical Valve 2.5 - 3.5 MEAN CORPUSCULAR HEMOGLOBIN 2025-03-24 14:43 [facility] 24.3 pg (missing) ALT ALANINE AMINOTRANSFERASE 2025-03-24 14:43 [facility] 26 iu/l As of January 2023 testing method has changed, this may include reference ranges. CARBON DIOXIDE - CO2 2025-03-24 14:43 [facility] 27 mmol/l As of January 2023 testing method has changed, this may include reference ranges. HCT - HEMATOCRIT 2025-03-24 14:43 [facility] 27.0 % (missing) MEAN CORPUSCULAR HGB CONC 2025-03-24 14:43 [facility] 29.3 g/dl (missing) GLOBULIN 2025-03-24 14:43 [facility] 3.0 g/dl (missing) RED BLOOD COUNT 2025-03-24 14:43 [facility] 3.25 10 6/ul (missing) ALBUMIN 2025-03-24 14:43 [facility] 3.8 g/dl As of January 2023 testing method has changed, this may include reference ranges. PT - PROTHROMBIN TIME 2025-03-24 14:43 [facility] 31.8 secs (missing) AST ASPARTATE AMINOTRANSFERASE 2025-03-24 14:43 [facility] 33 iu/l As of January 2023 testing method has changed, this may include reference ranges. POTASSIUM 2025-03-24 14:43 [facility] 4.4 mmol/l As of January 2023 testing method has changed, this may include reference ranges. PLT - PLATELET COUNT 2025-03-24 14:43 [facility] 408 10 3/ul (missing) NEUTROPHILS # (AUTO) 2025-03-24 14:43 [facility] 5.3 10 3/ul (missing) GFR - MDRD 2025-03-24 14:43 [facility] 52 (missing) Social History date description facility
[2025-04-12] MEDS: SODIUM CHLORIDE FLUSH 0.9% 10 ML SYRINGE IVP SCH (00:40)
[2025-04-12] MEDS ORDERED: SODIUM CHLORIDE FLUSH 0.9% 10 ML SYRINGE IVP PRN (04:28)
[2025-04-12 05:52] LABS: BUN - BLOOD UREA NITROGEN 20.0 mg/dL (6-20); CARBON DIOXIDE - CO2 24.0 mmol/L (21-32); CREATININE 0.9 mg/dL (0.6-1.3); GFR - MDRD 59.0 (>89)
[2025-04-12] MEDS: SODIUM CHLORIDE 0.9% 1,000 ML IV SCH (05:58)
[2025-04-12] MEDS: ACETAMINOPHEN 325 MG TABLET PO PRN (08:06)
[2025-04-12] MEDS: THIAMINE 100 MG TABLET PO SCH (08:11)
[2025-04-12] MEDS: PANTOPRAZOLE 40 MG TABLET PO SCH (08:11)
[2025-04-12] MEDS: PRENATAL VITAMIN TABLET PO SCH (08:11)
--- NOTE | 2025-04-12 11:15 | Discharge Summary ---
Discharge Summary Admit Date: 04/11/25 Discharge Date: 04/12/25 Discharging Provider: Alexis Sahni Primary Care Provider: Cherelle Galvin Code Status: Attempt Resuscitation DIAGNOSES Admission Diagnoses: Hyponatremia Acute metabolic encephalopathy Confused Hypertension Atrial fibrillation Discharge Diagnoses with Status of Each Condition: Hyponatremiapatient reports to me that she had recently cut down on her salt intake. She was also drunk on presentation Acute metabolic encephalopathypatient was drunk Confusedpatient was drunk Hypertensionchronic Atrial fibrillationchronic HPI History of Present Illness: 89 y old female with PMH HTN, A fib on anticoagulation was brought in from care facility s/p fall. Pt is consfused and intoxicated at this time and unable to provide meaningful history , so most of history is by ER physician. CT head and C spine showed no acute findings Labs showed Na 125 Family reports cognitive decline HOSPITAL COURSE Hospital Course: Patient was placed in observation and started on NS drip. Her sodium has corrected to 129, and I have ordered 1 more liter of NS bolus prior to discharge. Her encephalopathy resolved as she sobered up. At time of my interview, patient is alert and oriented x 4, and is able to clearly state why she is in the hospital and how much she drinks on a regular basis. Patient is being discharged back to prior living situation. I have encouraged her to stop her self-imposed sodium restriction ALLERGIES Allergies Allergy/AdvReac Type Severity Reaction Status Date / Time Penicillins Allergy Unknown Rash Verified 04/11/25 18:36 lisinopril Allergy Respiratory Verified 04/11/25 18:36 oxycodone (Oxycodone) Allergy Unknown Verified 04/11/25 18:36 MEDICATIONS Ambulatory Orders Medication Instructions Recorded Confirmed nitroglycerin 0.4 mg sublingual 0.4 mg sublingual Q5MI N PRN Angina 06/23/20 04/12/25 tablet furosemide 20 mg tablet 20 mg PO DAILY 06/25/2403/31 metoprolol succinate 25 mg 25 mg PO QDAY #30 tabs 12/2904/12/25 tablet,extended release 24 hr tramadol 50 mg tablet 50 mg PO QDAY PRN pain (scal e 01/07/25 04/12/25 score 7-10) allopurinol 100 mg tablet 100 mg PO QDAY 02/06/2503/31 spironolactone 25 mg tablet 12.5 mg PO DAILY 02/06/25 04/12/25 fluoxetine 40 mg capsule 40 mg PO QDAY #90 caps 03/0504/12/25 losartan 25 mg tablet 25 mg PO DAILY 03/24/2503/31 rivaroxaban 20 mg tablet (Xarelto) 20 mg PO DAILY 03/0104/12/25 omeprazole 40 mg capsule,delayed 40 mg PO BID 04/12/25 04/12/25 release vit,calcium 27-ferrous 1 tab PO DAILY 30 days #30 tabs 04/12/25 fum 60 mg iron-folic acid 1 mg tablet (Trinatal Rx 1) thiamine mononitrate (vit B1) 100 100 mg PO DAILY #30 tabs 04/12/25 mg tablet (Vitamin B-1 (mononitrate)) PHYSICAL EXAM AT DISCHARGE Vital Signs: Vital Signs x48h Temp Pulse Resp BP Pulse Ox 04/12/25 14:40 36.6 C 74 18 112/54 L 94 04/12/25 08:04 36.5 C 64 16 122/61 94 General Appearance: positive No acute distress and Alert Eyes Bilateral: positive Normal inspection ENT: positive ENT inspection nml Neck: positive Nml inspection Respiratory: positive Chest non-tender Cardiovascular: positive Irregularly irregular Peripheral Pulses: positive 2+ Abdomen: positive Non-tender Skin: positive Color nml Extremities: positive Non-tender Neurologic/Psychiatric: positive Oriented x3 LABS 04/11/25 18:49 04/12/25 15:01 FOLLOW UP Follow Up: With PCP TIME SPENT Time Spent in Discharge (Minutes): 38 Discharge Plan Discharge Patient Disposition: SUMEET, Self Care Condition: Stable Prescriptions: New Trinatal Rx 1 60 mg iron-1 mg Tablet 1 tab PO DAILY 30 Days Qty: 30 0RF thiamine mononitrate (vit B1) [Vitamin B-1 (mononitrate)] 100 mg Tablet 100 mg PO DAILY Qty: 30 0RF Continued allopurinol 100 mg tablet 100 mg PO QDAY spironolactone 25 mg tablet 12.5 mg PO DAILY fluoxetine 40 mg capsule 40 mg PO QDAY Qty: 90 0RF furosemide 20 mg tablet 20 mg PO DAILY nitroglycerin 0.4 MG tablet, sublingual 0.4 mg sublingual Q5MIN PRN (Reason: Angina) metoprolol succinate 25 mg tablet extended release 24 hr 25 mg PO QDAY Qty: 30 2RF tramadol 50 mg tablet 50 mg PO QDAY PRN (Reason: pain (scale score 7-10)) losartan 25 mg tablet 25 mg PO DAILY Xarelto 20 mg tablet 20 mg PO DAILY No Action omeprazole 40 mg capsule,delayed release(DR/EC) 40 mg PO BID Activity Restrictions: No Restrictions Diet: Regular Health Concerns: You came into the hospital because you were found down. You were noted to be confused, intoxicated, and had a low sodium. You were held overnight while we gave you sodium in your IV. Your mentation is much improved today, and I am sending you back to your previous living situation. I would strongly encourage you to cut back on your drinking. In the meantime, I am ordering some vitamins to supplement your diet as one of the complications of chronic alcohol use is poor nutrition. Please follow-up with your primary care provider for further management Print Language: Guatemalan Patient Instructions: ED Alcohol Abuse Stand Alone Forms: PCP List Vitals documented within 30 minutes of discharge?: Yes
--- NOTE | 2025-04-12 12:38 | PHARMACY PROGRESS NOTE ---
Best Possible Medication History Admit Date and Time: 04/11/25 2150 Home Medications Medication Instructions Recorded Confirmed Type nitroglycerin 0.4 mg sublingual 0.4 mg sublingual Q5MI N PRN Angina 06/23/20 04/12/25 History tablet furosemide 20 mg tablet 20 mg PO DAILY 06/25/2403/31 History metoprolol succinate 25 mg 25 mg PO QDAY #30 tabs 12/2904/12/25 Rx tablet,extended release 24 hr tramadol 50 mg tablet 50 mg PO QDAY PRN pain (scal e 01/07/25 04/12/25 History score 7-10) allopurinol 100 mg tablet 100 mg PO QDAY 02/06/2503/31 History spironolactone 25 mg tablet 12.5 mg PO DAILY 02/06/25 04/12/25 History fluoxetine 40 mg capsule 40 mg PO QDAY #90 caps 03/0504/12/25 Rx losartan 25 mg tablet 25 mg PO DAILY 03/24/2503/31 History rivaroxaban 20 mg tablet (Xarelto) 20 mg PO DAILY 03/0104/12/25 History omeprazole 40 mg capsule,delayed 40 mg PO BID 04/12/25 04/12/25 History release vit,calcium 27-ferrous 1 tab PO DAILY 30 days #30 tabs 04/12/25 Rx fum 60 mg iron-folic acid 1 mg tablet (Trinatal Rx 1) thiamine mononitrate (vit B1) 100 100 mg PO DAILY #30 tabs 04/12/25 Rx mg tablet (Vitamin B-1 (mononitrate)) Processed by: Pharmacy Medications reviewed in ED?: No Medication History completed: Yes Patient Interview: Completed Secondary Source(s): Pharmacy records and Insurance records [facility] Statement: As the person ultimately responsible for medication therapy, providers are able to order a medication from an existing home medication list in [facility] via the "Reconcile Routine" prior to Confirmation of that medication by application support engineer. Such practice is discouraged except when the physician, in their clinical judgment, deems that a medical need exists for a medication without regard to previous use.
[2025-04-12] MEDS: SODIUM CHLORIDE 1 GM TABLET PO SCH (12:47)
[2025-04-12] MEDS: SODIUM CHLORIDE 0.9% 1,000 ML IV ONE (16:10)
[2025-04-12 17:34] VITALS: BP 158/79; TEMP 97.9; O2SAT 97
== END 2025-04-12 17:33 | disposition home or self-care (01) | DRG 640 ==
LOC: ED 18:29 → MS2 21:50
PROVIDERS: ADMIT Internal Medicine; ATTEND Internal Medicine
DX: Z87.891 Personal history of nicotine dependence; Z79.899 Other long term (current) drug therapy; Z79.01 Long term (current) use of anticoagulants; F32.A Depression, unspecified; I45.89 Other specified conduction disorders; K21.9 Gastro-esophageal reflux disease without esophagitis; I50.9 Heart failure, unspecified; E87.1 Hypo-osmolality and hyponatremia; F10.129 Alcohol abuse with intoxication, unspecified; I48.20 Chronic atrial fibrillation, unspecified; I44.7 Left bundle-branch block, unspecified; I11.0 Hypertensive heart disease with heart failure; G93.41 Metabolic encephalopathy; Z91.81 History of falling; I48.91 Unspecified atrial fibrillation